=== PATIENT | male | born 1940 | race Caucasian/White ===

== ENCOUNTER 2017-01-29 06:07 | Day surgery (SDC) | payer MEDICARE ==
[2017-01-22 15:13] VITALS: BMI 31.1
[2017-01-29] MEDS ORDERED: Levofloxacin 500 mg/D5W 100 ml Premix Bag ONE (06:21)
[2017-01-29] MEDS ORDERED: Fentanyl 100 MCG/2 ML VIAL ONE (07:21)
[2017-01-29] MEDS ORDERED: Esmolol 100 MG/10 ML VIAL ONE (07:35)
[2017-01-29] MEDS ORDERED: Lidocaine 2% PF 10 ML AMP (For Epidural Use) ONE (07:35)
[2017-01-29] MEDS ORDERED: Glycopyrrolate 0.2 MG/ML 5 ML SYRINGE ONE (07:35)
[2017-01-29] MEDS ORDERED: Ondansetron HCl/PF 4 MG/2 ML Vial ONE (07:35)
[2017-01-29] MEDS ORDERED: PHENYLEPHRINE-NS 100 MCG/ML 10 ML SYRINGE ONE (07:35)
[2017-01-29] MEDS ORDERED: Propofol 200 MG/20 ML VIAL ONE (07:35)
[2017-01-29] MEDS ORDERED: Lidocaine 1% (PF) 30 ML VIAL ONE (09:28)
[2017-01-29] MEDS ORDERED: Bacitracin Zinc Ointment 30 gm TUBE ONE (09:28)
[2017-01-29] MEDS ORDERED: Bupivacaine 0.25% HCL 30 ML VIAL ONE (09:28)
[2017-01-29] MEDS ORDERED: SUGAMMADEX SODIUM 500 MG/5 ML VIAL ONE (10:44)
[2017-01-29] MEDS ORDERED: Promethazine HCl 25 MG/ML VIAL ONE (11:29)
--- NOTE | 2017-01-29 18:19 | OP ---
DATE OF PROCEDURE: 01/29/2017 PREOPERATIVE DIAGNOSES: Bladder tumor, BPH, urinary tract infections. POSTOPERATIVE DIAGNOSES: Bladder tumor, BPH, urinary tract infections. PROCEDURE PERFORMED: Transurethral resection of bladder tumors with random bladder biopsies, fulguration and mitomycin, then a GreenLight laser vaporization with a enucleation of the middle lobe using [id number] joules, then circumcision. GreenLight and mitomycin was also used as part of the procedure. SPECIMENS: Left bladder wall tumor as well as base of left bladder wall tumor and then random biopsies, trigone, posterior left and right and dome and then prostate chips. The foreskin was not sent. Minimal blood loss. No complications. ANESTHESIA: General with endotracheal tube as well as penile block using 10 mL of Marcaine. INDICATIONS: The patient is a 76-year-old male who had multiple prior resections of superficial low-grade bladder tumors and was found to have recurrence of these. He also has significant BPH and prior urinary tract infections as well as foreskin that could be contributing to these, so he was set up for transurethral resection of bladder tumor with mitomycin as well as GreenLight laser vaporization in the prostate and circumcision. DESCRIPTION OF THE PROCEDURE: The patient was brought in the room by anesthesia lying on table in supine position. After receiving general anesthetic via endotracheal tube with visual monitorization by Anesthesia, he was then positioned in lithotomy and prepped and draped in sterile fashion. A cystoscope was used initially to inspect the bladder, the tumors were small and only noted on the left bladder wall. Then, random bladder biopsies were taken of the trigone, posterior right and left wall and dome and then using the cold cup biopsy, a small superficial appearing bladder tumors were then also removed with a cold cup biopsy in part. Then, the cystoscope was removed and the resectoscope placed in and hemostasis of all the prior bladder biopsy sites was performed and then further resection of the base of the bladder tumors on the left side were resected and sent for specimen. Hemostasis was achieved in this area. Then, the resectoscope was removed and GreenLight laser vaporization would proceed. We did not have the standard 22.5 double bridge cystoscope, so we used a 26- Swedish resectoscope for the GreenLight laser. A power of 80 was used for the bladder neck and veru, and a power of 180 was used for the rest of the gland. The middle lobe was taken down and there was some extension of to the left and this portion was enucleated and chips that were small enough to be rinsed out. When the scope was removed, the good stream was noted. Scope was put back in with the bladder decompressed. Hemostasis was ensured at low grade power of 80. Then, the scope was removed the final time and a 20-Swedish 2-way was placed to gravity to drain the remaining bladder contents and then 40 mg of mitomycin and 50 mL was instilled and the catheter clamped or plugged and then the patient was turned to supine and transferred to an open OR suite. In supine position, a penile block was performed using 10 mL of Marcaine and then he was prepped and draped in sterile fashion. Using 2 circumferential incisions, one with the forekin reduced at the level of the perez, the other 5 mm proximal to the level of the perez with the foreskin retracted then these were sharply transected. Hemostasis was ensured with electrocautery and the two skin edges were reapproximated with 3-0 and 4-0 chromic in interrupted fashion. A vertical incision was slightly made at the frenulum and so a 4-0 chromic was used to reapproximate that in vertical fashion. Bacitracin, Xeroform, and sterile dressing were applied and then the patient was awakened fully and sent to the PACU. Before transferring him though, an hour had passed and the mitomycin was drained and disposed properly and new tubing connected to the De Guzman catheter, which was then secured. At this time, the patient was transferred to the PACU in stable condition. JEFF
== END 2017-01-29 13:45 | disposition home or self-care (01) ==
LOC: SDC 06:07
PROVIDERS: ATTEND Urology
PROC: 0VB08ZZ Excision of Prostate, Via Natural or Artificial Opening Endoscopic (ICD-10-PCS; principal; 2017-01-29)
PROC: 0VTTXZZ Resection of Prepuce, External Approach (ICD-10-PCS; 2017-01-29)
DX: C67.9 Malignant neoplasm of bladder, unspecified (principal); N40.1 Benign prostatic hyperplasia with lower urinary tract symptoms; Z87.440 Personal history of urinary (tract) infections; N32.89 Other specified disorders of bladder; E11.9 Type 2 diabetes mellitus without complications; I10 Essential (primary) hypertension; E03.9 Hypothyroidism, unspecified; E78.00 Pure hypercholesterolemia, unspecified; K21.9 Gastro-esophageal reflux disease without esophagitis; F32.9 Major depressive disorder, single episode, unspecified; H91.93 Unspecified hearing loss, bilateral; Z98.890 Other specified postprocedural states; Z96.21 Cochlear implant status; Z87.891 Personal history of nicotine dependence; Z79.82 Long term (current) use of aspirin; Z79.84 Long term (current) use of oral hypoglycemic drugs; Z79.899 Other long term (current) drug therapy
CPT/HCPCS: 52648; 54150; 88305; 96374; J9280; J1956; J2001; J2405; J2550; J2704; J3010; S0020

== ENCOUNTER 2017-10-15 22:08 | Inpatient (IN) | payer MEDICARE ==
[2017-10-16] MEDS ORDERED: Guaifenesin DM 100-10/5 ML UDCUP PO PRN (00:19)
[2017-10-16] MEDS ORDERED: Dextrose 50% Abboject 50 ML SYRINGE SLOW IVP PRN (00:19)
[2017-10-16] MEDS ORDERED: Calcium Carbonate 500 MG ChewTAB PO PRN (00:19)
[2017-10-16] MEDS ORDERED: Mag-Al 1200 mg/1200 mg/30 ML UDCUP PO PRN (00:19)
[2017-10-16] MEDS ORDERED: Dextrose 5% in Water 1,000 ML IV PRN (00:19)
[2017-10-16] MEDS ORDERED: Cefepime 1 GM in Sodium Chloride 0.9% 100 ML IVPB SCH (01:00)
[2017-10-16] MEDS: Sodium Chloride 0.9% 1,000 ML IV SCH ×2 (01:48→14:18)
[2017-10-16] MEDS: Acetaminophen 325 MG TAB PO PRN (02:13)
[2017-10-16 02:43] VITALS: BMI 29.9
[2017-10-16 04:20] LABS: #Eosinphils 0.5 thou/uL (0.0-0.7); #Lymphocytes 0.6 thou/uL (1.20-3.40); #Monocytes 0.4 thou/uL (0.11-0.59); #Neutrophils 5.9 thou/uL (1.40-6.50); %Basophils 0.1 % (0.0-1.0); %Eosinophils 6.4 % (0.0-10.0); %Lymphocytes 7.7 % (21.0-51.0); %Monocytes 5.4 % (0.0-10.0); %Neutrophils 80.4 % (42.0-75.0); Hemoglobin 11.5 g/dL (14.0-18.0); Mean Corpuscular HGB CONC 34.8 g/dL (32.0-36.0); Mean Corpuscular Hemoglobin 31.2 pg (27.0-31.0); Mean Corpuscular Volume 89.6 fl (80.0-94.0); Platelet Count 220 thou/uL (130-400); RBC Distribution Width 11.9 % (11.5-14.5); Red Blood Cell (RBC) Count 3.68 mill/uL (4.70-6.10); White Blood Cell (WBC) Count 7.3 thou/uL (4.8-10.8)
[2017-10-16 04:37] LABS: Lactic Acid 3.8 mmol/L (0.5-2.2)
[2017-10-16 04:43] LABS: Albumin 3.3 g/dL (3.4-4.8); Anion Gap 13 mmol/L (10-20); BUN (Urea Nitrogen) 24 mg/dL (8.4-25.7); BUN/Creatinine Ratio 14.72; Calc. Creatinine Clearance 52 mL/min (70-130); Calcium 8.9 mg/dL (7.8-10.44); Carbon Dioxide 20 mmol/L (23-31); Chloride 99 mmol/L (98-107); Estimated GFR-MDRD 41; Glucose 380 mg/dL (83-110); Phosphorus 2.2 mg/dL (2.3-4.7); Potassium 4.6 mmol/L (3.5-5.1); Sodium 127 mmol/L (136-145)
--- NOTE | 2017-10-16 05:18 | HP ---
REASON CHIEF COMPLAINT: Sepsis, urinary tract infection. HISTORY OF PRESENTING ILLNESS: Patient gives history of feeling weak all day. He was unable to walk. He has some dry cough, but no fever as such. He had come to Dr. Guevara's office at 8:45 a.m. yesterday for procedure. His blood pressure dropped down to 70/40 and was dizzy. He was stabilized in their office and was asked to go see his primary care physician, Dr. Hameed. He went to see Dr. Hameed yesterday afternoon. He had a CAT scan of the abdomen. Urinalysis and chest x-ray done at [facility]. His lactic acid was high and his glucose was high and patient was suspected to have sepsis and was transferred here. He has no complaints of urinary frequency or urgency per patient. No complaints of abdominal pain. No diarrhea. No complaints of chest pain, palpitation, PND, or orthopnea. PAST MEDICAL AND SURGICAL HISTORY: History of benign prostatic hypertrophy, history of bladder tumors which are being treated by Dr. Guevara his urologist, hypertension, dementia, COPD, peripheral neuropathy, diabetes mellitus type 2, hypothyroidism, depression, history of diverticulosis, GERD, arthroscopic rotator cuff repair on the right side, TURB - bladder tumor resection, hernia repair. CURRENT MEDICATIONS: Patient is on Prilosec 20 mg daily, aspirin is being held for procedure yesterday, CoQ10 of 400 mg daily, Norvasc 10 mg daily, Aricept 10 mg at bedtime, Anoro Ellipta inhaler daily, Celexa 20 mg daily, finasteride 5 mg daily, glimepiride 4 mg twice daily, Lantus 25 units subcutaneous daily, metformin 1 gram twice daily, Namenda 5 mg twice daily, ramipril 10 mg daily, levothyroxine 100 mcg daily, gabapentin 100 mg at bedtime, Zetia 10 mg p.o. q. daily. ALLERGIES: No known drug allergies. PERSONAL HISTORY: Quit smoking 16 years ago, prior to which, smoked 2 packs a day for nearly 30 years and drinks two shots of scotch every day in the evening , does not abuse drugs. Lives with his . FAMILY HISTORY: Both parents in their 80s. Father has had history of diabetes. CODE STATUS: FULL. Power of deputy attorney general is his . REVIEW OF SYSTEMS: The following complete review of systems was negative, unless otherwise mentioned in the HPI or below: Constitutional: Weight loss or gain, ability to conduct usual activities. Skin: Rash, itching. Eyes: Double vision, pain. ENT/Mouth: Nose bleeding, neck stiffness, pain, tenderness. Cardiovascular: Palpitations, dyspnea on exertion, orthopnea. Respiratory: Shortness of breath, wheezing, cough, hemoptysis, fever, or night sweats. Gastrointestinal: Poor appetite, abdominal pain, heartburn, nausea, vomiting, constipation, or diarrhea. Genitourinary: Urgency, frequency, dysuria, nocturia. Musculoskeletal: Pain, swelling. Neurologic/Psychiatric: Anxiety, depression. Allergy/Immunologic: Skin rash, bleeding tendency. PHYSICAL EXAMINATION: GENERAL: The patient is a 77-year-old male who is currently not in any acute distress. VITAL SIGNS: Blood pressure 173/94, pulse 86 per minute, respiratory rate 16 per minute, temperature 98.4 degrees Fahrenheit, saturating 97% on 3 liters nasal cannula. NECK: Supple, no elevated JVD. HEENT: Extraocular muscles intact. Pupils reacting to light. Oral cavity mucous membranes are moist. No exudates or congestion. CARDIOVASCULAR SYSTEM: S1, S2 heard. Regular rhythm. RESPIRATORY SYSTEM: Air entry 1+ bilateral. No rales or rhonchi. ABDOMEN: Soft, bowel sounds heard. No tenderness, rigidity, or guarding. EXTREMITIES: No peripheral edema or calf tenderness. VASCULAR SYSTEM: Peripheral pulses 1+ bilateral. No ischemic ulcerations or gangrene. CENTRAL NERVOUS SYSTEM: No gross focal deficits seen. Patient is alert, awake , and oriented well. PSYCHIATRIC SYSTEM: Patient's mood is euthymic. No hallucinations or delusions. LABORATORY DATA AND X-RAY FINDINGS: White count of 12, H&H 12 and 37, platelet count 255 with 92% neutrophils, 2% bands. PT, INR, PTT within normal limits. Potassium 5.6, serum bicarbonate 19, BUN 31, creatinine 2.1. Serum glucose 325. Lactic acid is 3.7. Liver enzymes within normal limits. BNP is 87. First set of cardiac enzymes are negative. Albumin is 3.8. UA shows small leukocyte esterase with 21-50 wbc's, rare few bacteria were seen. CT brain, no acute finding. Chest x-ray done shows mild cardiomegaly, no acute infiltrate. CLINICAL IMPRESSION AND PLAN: Patient will be admitted to telemetry for sepsis , possible urinary tract infection. We will also obtain orthostatic blood pressures. He will be placed on cefepime and Macrobid for now. Blood and urine cultures have been obtained in the ER. He will continue his home medications including Norvasc, aspirin, Celexa, Aricept, Zetia, Neurontin, glimepiride, Lantus, insulin, Synthroid, Namenda, Flomax, and CoQ10 as before. We will await cultures and we will transition him to oral antibiotics. We will continue to closely monitor him on telemetry. Please note I have seen and examined patient on 10/15/2017. JEFF
[2017-10-16] MEDS: Levothyroxine Sodium 100 MCG TAB PO SCH (06:03)
[2017-10-16] MEDS ORDERED: Non-Formulary Item 1 EACH (Insulin Glargine,Hum.Rec.Anlog [Lantus Solostar] 25 UNIT) SQ SCH (09:00)
[2017-10-16] MEDS: Enoxaparin Sodium 40 MG/0.4 ML SYRINGE SC SCH (09:51)
[2017-10-16] MEDS: Nitrofurantoin Monohyd/M-Cryst 100 MG CAP PO SCH ×2 (09:51→22:42)
[2017-10-16] MEDS: Amlodipine 10 MG TAB PO SCH (09:51)
[2017-10-16] MEDS: Ubidecarenone 50 MG CAP PO SCH (09:52)
[2017-10-16] MEDS: Famotidine 20 MG TAB PO SCH (09:52)
[2017-10-16] MEDS: Lactinex Tablet PO SCH (09:52)
[2017-10-16] MEDS: Tamsulosin HCl 0.4 MG CAP PO SCH ×2 (09:53→22:42)
[2017-10-16] MEDS: Multivitamin W/ Minerals 1 TAB PO SCH (09:53)
[2017-10-16] MEDS: Finasteride 5 MG TAB PO SCH (09:53)
[2017-10-16] MEDS: Ezetimibe 10 MG TAB PO SCH (09:53)
[2017-10-16] MEDS: Docusate 100 MG CAP PO SCH ×2 (09:53→22:42)
[2017-10-16] MEDS: Citalopram 20 MG TAB PO SCH (09:53)
[2017-10-16] MEDS: Glimepiride 4 MG TAB PO SCH ×2 (09:54→17:31)
[2017-10-16] MEDS: Insulin Glargine 25 UNITS in Pre-Filled Syringe 1 EACH SC SCH (11:48)
--- NOTE | 2017-10-16 12:14 | CON ---
DATE OF CONSULTATION: 10/16/2017 REASON FOR CONSULTATION: Consultation was requested for urosepsis. HISTORY OF PRESENT ILLNESS: The patient is well known to me and last week had received the second of three BCG doses as therapy for his bladder cancer in hopes to decrease the frequency of which it will return. He presented to our office on 10/15/2017 for his third dose and in just trying to get a urine sample from him, he was dizzy and unstable and seemed confused. His blood pressure was only 70 systolic, so he was laid down, rested and then ultimately his blood pressure improved significantly and he and his son were encouraged to call his primary care doctor and follow up regarding this. A urine was obtained at that time. He saw his primary care doctor who was concerned about him and sent him to the emergency room. The emergency room transferred him from [place] with concerns for urosepsis. Other than inflammation noted on the urinalysis I am not sure where they concluded that he had significant infection and that this resulted in urosepsis. He has had urinary tract infections, and I have treated him for these. Most recently after his second of two BCG treatments, which was on 10/08/2017, he had significant problems with severe spasm and pain in the 24 hours after so we had planned on giving him half a dose and increased his Myrbetriq and oxybutynin. Urinalysis did not show obvious infection by culture, but I did want to sterilize the urine before another BCG, so I asked him to start Macrobid around the time of the anticipated third BCG. But the most bacteria other than none and rare that have been seen in his urine was from the 2017 (1+) sample and then not since 03/2017. A urine culture in July did grow Staph epi. This was likely a contaminant, and the urine from March and grew presumptive Corynebacterium. But his culture from 10/11/2017 showed nothing despite 1+ bacteria noted on the micro, and his most recent urinalysis from my office actually showed no bacteria and then it was repeated from the ER later that day, showed rare--but this was with 4-6sq cells. Again, white blood cells will be standard and expected during his courses of BCG, so I am not concerned about significant infection in the urine. He does not need antibiotics for this unless his most recent culture ends up being positive, which is highly unlikely. PAST MEDICAL HISTORY: Diabetes since the , hearing loss, chronic sinusitis , reflux, depression, cholesterol, high blood pressure, hypothyroid, Parkinson' s possibly with dementia possibly, still working on a diagnosis, but certainly his memory has been an issue as I have followed him along recently. PAST SURGICAL HISTORY: Right arthroscopic rotator cuff in 2008, inguinal hernia repair in 1989, cochlear implant in 2014, bladder resections in 1971, 2013, 2016 and then with me in 2017. During the 2017 surgery, he also underwent GreenLight laser vaporization of the prostate for his BPH and circumcision. From a bladder emptying standpoint his residuals have always been significant and were 700 and 800 before his GreenLight and have been anywhere from 240 to 285 postop. FAMILY HISTORY: His dad at 80 with diabetes. Mom at 85. SOCIAL HISTORY: He has a 2 pack a day history for 37 years, but quit in 1986. He drinks two liquor beverages a day daily, although I think he has decreased this most recently. ALLERGIES: Seasonal only. MEDICATIONS: Metformin, amlodipine, Synthroid, insulin, ramipril, Ellipta, Flonase, Probiotic, multivitamin, Prilosec, Riri, vitamin D, gabapentin, Zetia, finasteride, aspirin, glimepiride, DHEA, Aricept, Namenda, Myrbetriq and oxybutynin. REVIEW OF SYSTEMS: No chest pain, no shortness of breath. No cough. No nausea , no vomiting, no diarrhea, no constipation. No trouble with urination, although he does say it palmer a little when he first starts. Yesterday he denied any concerns for infection with his urine, no blood. No fever or chills. He cannot remember whether he has been drinking enough and I am concerned that this may just be dehydration with failure to thrive. PHYSICAL EXAMINATION: GENERAL: He is comfortably resting in the bed. He has good color. He is oriented, but he definitely has memory trouble when asking specific questions. VITAL SIGNS: He has been afebrile with a T-max of 98.4, pulse has been in the 70s-80s, blood pressure has been stable in the 140s to 150s systolic, satting 94 % on room air. Urine output has been a liter overnight. CARDIOVASCULAR: Regular rate and rhythm. LUNGS: Clear to auscultation bilaterally. ABDOMEN: Soft, nondistended, nontender. : Testes were descended bilaterally without masses. Phallus is circumcised without lesions. No meatal stenosis. EXTREMITIES: He had no significant lower extremity edema. LABORATORY VALUES: White count is only 7.3. His H&H are stable. There is no significant neutrophils unless looked at the manual they went from 80 to 92%. Chemistry reveals a creatinine of 1.63 which is actually relatively good for him with a BUN of 24 and 31 previously, so improving. BNP is only 87.4. I have already detailed all the urinalysis and cultures. His most recent renal ultrasound was from 01/2017 and was unremarkable. Last cysto and cytology: 08/21 --both were negative for cancer. ASSESSMENT AND PLAN: We have a 77-year-old male who was admitted with concerns for urosepsis. However, I am not convinced that he even has a significant urine infection much less sepsis and favor dehydration with resulting low blood pressure in the setting of increasing memory troubles and possibly failure to thrive. Certainly I will await the urine culture, but I suspect this will be negative and therefore no further antibiotics would be indicated from my standpoint. JEFF
--- NOTE | 2017-10-16 12:40 | PDOC.PN ---
- Subjective Encounter Start Date: 10/16/17 Encounter Start Time: 12:42 Patient seen and examined. Admitted for suspected sepsis due to UTI. Patient is a lot better this morning and has no complaints. No acute events overnight. - Objective Resuscitation Status: Resuscitation Status FULL:Full Resuscitation MAR Reviewed: Yes Vital Signs & Weight: Vital Signs (12 hours) Temp Pulse Pulse Pulse Resp BP BP 10/16/17 11:47 98.5 F 94 18 10/16/17 11:22 77 16 10/16/17 09:51 75 10/16/17 08:04 98.4 F 75 18 10/16/17 07:42 76 74 152/73 H 155/74 H 10/16/17 03:18 98.2 F 83 20 10/16/17 03:14 82 16 10/16/17 02:04 98.2 F 89 20 10/16/17 01:40 98.2 F 89 20 BP Pulse Ox Pulse Ox 10/16/17 11:47 140/71 95 10/16/17 11:22 94 L 10/16/17 09:51 10/16/17 08:04 158/74 H 94 L 10/16/17 07:42 94 L 10/16/17 03:18 146/70 H 94 L 10/16/17 03:14 95 10/16/17 02:04 96 10/16/17 01:40 174/82 H 96 Weight Weight 221 lb 3.2 oz I&O: 10/15/17 10/16/17 10/17/17 06:59 06:59 06:59 Intake Total 1080 Output Total 1230 Balance -150 Result Diagrams: 10/16/17 03:04 10/16/17 03:04 Additional Labs: Accuchecks 10/16/17 10/16/17 11:11 05:39 POC Glucose 265 H 299 H Phys Exam - Physical Examination Constitutional: NAD HEENT: moist MMs, sclera anicteric Neck: supple, full ROM Respiratory: no wheezing, no rales, no rhonchi, clear to auscultation bilateral Cardiovascular: RRR, no significant murmur, no rub Gastrointestinal: soft, non-tender, no distention, positive bowel sounds Musculoskeletal: no edema, pulses present Neurological: non-focal, moves all 4 limbs Skin: no rash, normal turgor Dx/Plan (1) Cognitive changes Code(s): R41.89 - OTH SYMPTOMS AND SIGNS W COGNITIVE FUNCTIONS AND AWARENESS Status: Chronic Comment: Has suspected lewy Body dementia. (2) CKD (chronic kidney disease) Code(s): N18.9 - CHRONIC KIDNEY DISEASE, UNSPECIFIED Status: Chronic Qualifiers: Chronic kidney disease stage: stage 3 (moderate) Qualified Code(s): N18.3 - Chronic kidney disease, stage 3 (moderate) (3) Hypothyroidism Code(s): E03.9 - HYPOTHYROIDISM, UNSPECIFIED Status: Chronic Qualifiers: Hypothyroidism type: unspecified Qualified Code(s): E03.9 - Hypothyroidism , unspecified (4) Hyperglycemia due to type 2 diabetes mellitus Code(s): E11.65 - TYPE 2 DIABETES MELLITUS WITH HYPERGLYCEMIA Status: Acute Qualifiers: Diabetes mellitus snf insulin use: with snf use Qualified Code( s): E11.65 - Type 2 diabetes mellitus with hyperglycemia; Z79.4 - tangled yarn spool straightener ( current) use of insulin; Z79.4 - retirement (current) use of insulin; Z79.4 - retirement (current) use of insulin; Z79.4 - retirement (current) use of insulin (5) UTI (lower urinary tract infection) Code(s): N39.0 - URINARY TRACT INFECTION, SITE NOT SPECIFIED Status: Acute (6) BPH (benign prostatic hyperplasia) Code(s): N40.0 - BENIGN PROSTATIC HYPERPLASIA WITHOUT LOWER URINRY TRACT SYMP Status: Chronic Qualifiers: Lower urinary tract symptom presence: symptoms present Lower urinary tract symptom detail: urinary hesitancy Qualified Code(s): N40.1 - Benign prostatic hyperplasia with lower urinary tract symptoms; R39.11 - Hesitancy of micturition ; R39.11 - Hesitancy of micturition (7) Hyponatremia Code(s): E87.1 - HYPO-OSMOLALITY AND HYPONATREMIA Status: Chronic (8) Hypertension Code(s): I10 - ESSENTIAL (PRIMARY) HYPERTENSION Status: Chronic Qualifiers: Hypertension type: essential hypertension Qualified Code(s): I10 - Essential (primary) hypertension (9) DM2 (diabetes mellitus, type 2) Status: Acute Qualifiers: Diabetes mellitus campaign developer insulin use: with campaign developer use Diabetes mellitus complication status: with neurologic complications Diabetes mellitus complication detail: with polyneuropathy Qualified Code(s): E11.42 - Type 2 diabetes mellitus with diabetic polyneuropathy; Z79.4 - retirement (current) use of insulin; Z79.4 - tangled yarn spool straightener (current) use of insulin; Z79.4 - retirement ( current) use of insulin; Z79.4 - retirement (current) use of insulin (10) Physical deconditioning Code(s): R53.81 - OTHER MALAISE Status: Acute - Plan cont current plan of care, plan discussed w/ family, continue antibiotics, PT/OT , out of bed/ambulate, DVT proph w/lovenox Continue broad spectrum antibiotics. f/u cultures. Urology evaluated, no new recommendations. Patient likely dehydrated, leading to hypotension and likely not 2/2 sepsis. PT/OT consulted for physical deconditioning. Review of Systems - Medications/Allergies Allergies/Adverse Reactions: Allergies Allergy/AdvReac Type Severity Reaction Status Date / Time No Known Allergies Allergy Verified 10/16/17 03:14 Medications: Current Medications Acetaminophen (Tylenol) 650 mg PO Q4H PRN PRN Reason: Headache/Fever or Pain Last Admin: 10/16/17 02:13 Dose: 650 mg Acidophilus (Floranex) 1 tab PO DAILY [facility] Last Admin: 10/16/17 09:52 Dose: 1 tab Al Hydroxide/Mg Hydroxide (Maalox) 30 ml PO Q6H PRN PRN Reason: Heartburn or Indigestion Albuterol/Ipratropium (Duoneb) 3 ml NEB [id number] [facility] Last Admin: 10/16/17 11:22 Dose: 3 ml Amlodipine Besylate (Norvasc) 10 mg PO DAILY [facility] Last Admin: 10/16/17 09:51 Dose: 10 mg Aspirin (Aspirin Chewable) 81 mg PO DAILY [facility] Last Admin: 10/16/17 09:53 Dose: 81 mg Calcium Carbonate (Tums) 1,000 mg PO Q4H PRN PRN Reason: Heartburn or Indigestion Citalopram Hydrobromide (Celexa) 20 mg PO DAILY [facility] Last Admin: 10/16/17 09:53 Dose: 20 mg Coenzyme Q10 (Coenzyme Q10) 400 mg PO DAILY [facility] Last Admin: 10/16/17 09:52 Dose: 400 mg Dextrose/Water (Dextrose 50%) 25 gm SLOW IVP PRN PRN PRN Reason: Hypoglycemia Docusate Sodium (Colace) 100 mg PO BID [facility] Last Admin: 10/16/17 09:53 Dose: 100 mg Donepezil HCl (Aricept) 10 mg PO [facility] Ezetimibe (Zetia) 10 mg PO DAILY [facility] Last Admin: 10/16/17 09:53 Dose: 10 mg Enoxaparin Sodium (Lovenox) 40 mg SC 0900 [facility] Last Admin: 10/16/17 09:51 Dose: 40 mg Famotidine (Pepcid) 20 mg PO DAILY [facility] Last Admin: 10/16/17 09:52 Dose: 20 mg Finasteride (Proscar) 5 mg PO DAILY [facility] Last Admin: 10/16/17 09:53 Dose: 5 mg Gabapentin (Neurontin) 100 mg PO [facility] Glimepiride (Amaryl) 4 mg PO BID-[facility] Last Admin: 10/16/17 09:54 Dose: 4 mg Glucagon (Glucagon) 1 mg IM PRN PRN PRN Reason: Hypoglycemia Guaifenesin/Dextromethorphan (Robitussin Dm) 15 ml PO Q4H PRN PRN Reason: Cough Dextrose/Water (D5w) 1,000 mls @ 0 mls/hr IV .Q0M PRN; As Directed PRN Reason: Hypoglycemia Sodium Chloride (Normal Saline 0.9%) 1,000 mls @ 80 mls/hr IV .[id number] [facility] Last Admin: 10/16/17 01:48 Dose: 1,000 mls Insulin Glargine 25 units/ (Miscellaneous Medication) 0.25 mls @ 0 mls/hr SC QAM [facility] Last Admin: 10/16/17 11:48 Dose: 0.25 mls Cefepime HCl 1 gm/ Sodium (Chloride) 100 mls @ 200 mls/hr IVPB 0200,1400 [facility] Insulin Human Lispro (Humalog) 0 units SC .MODERATE SLIDING SC PRN PRN Reason: Moderate Correctional Scale Insulin Human Lispro (Humalog) 0 units SC .BEDTIME SLIDING SC PRN PRN Reason: Bedtime Correctional Scale Iron/Minerals/Multivitamins (Theragran M) 1 tab PO DAILY [facility] Last Admin: 10/16/17 09:53 Dose: 1 tab Levothyroxine Sodium (Synthroid) 100 mcg PO 0600 [facility] Last Admin: 10/16/17 06:03 Dose: 100 mcg Memantine (Namenda) 5 mg PO BID [facility] Last Admin: 10/16/17 09:53 Dose: 5 mg Nitrofurantoin Macrocrystals (Macrobid) 100 mg PO BID [facility] Last Admin: 10/16/17 09:51 Dose: 100 mg Tamsulosin HCl (Flomax) 0.4 mg PO BID [facility] Last Admin: 10/16/17 09:53 Dose: 0.4 mg
[2017-10-16] MEDS: Cefepime 1 GM in Sodium Chloride 0.9% 100 ML IVPB SCH (14:28)
[2017-10-16] MEDS ORDERED: Non-Formulary Item 1 EACH (Metformin Hcl [Glucophage] 1,000 MG) PO SCH (17:00)
[2017-10-16] MEDS: metFORMIN 500 MG TAB PO SCH (17:31)
[2017-10-16] MEDS: HumaLOG 300 UNITS/3 ML VIAL SC PRN ×2 (17:31→22:44)
[2017-10-16] MEDS: Gabapentin 100 MG CAP PO SCH (22:42)
[2017-10-16] MEDS: Donepezil HCl 10 MG TAB PO SCH (22:42)
[2017-10-17] MEDS: Cefepime 1 GM in Sodium Chloride 0.9% 100 ML IVPB SCH (02:50)
[2017-10-17] MEDS: Sodium Chloride 0.9% 1,000 ML IV SCH ×2 (04:46→06:44)
[2017-10-17 05:14] LABS: #Eosinphils 0.5 thou/uL (0.0-0.7); #Lymphocytes 1.2 thou/uL (1.20-3.40); #Monocytes 0.5 thou/uL (0.11-0.59); #Neutrophils 4.7 thou/uL (1.40-6.50); %Basophils 0.1 % (0.0-1.0); %Eosinophils 6.8 % (0.0-10.0); %Lymphocytes 17.8 % (21.0-51.0); %Monocytes 7.1 % (0.0-10.0); %Neutrophils 68.3 % (42.0-75.0); Hemoglobin 11.3 g/dL (14.0-18.0); Mean Corpuscular HGB CONC 34.7 g/dL (32.0-36.0); Mean Corpuscular Hemoglobin 30.9 pg (27.0-31.0); Mean Corpuscular Volume 88.9 fl (80.0-94.0); Mean Platelet Volume 6.9 fL (7.4-10.4); Platelet Count 217 thou/uL (130-400); Red Blood Cell (RBC) Count 3.66 mill/uL (4.70-6.10); White Blood Cell (WBC) Count 6.8 thou/uL (4.8-10.8)
[2017-10-17 05:24] LABS: Anion Gap 12 mmol/L (10-20); BUN (Urea Nitrogen) 17 mg/dL (8.4-25.7); Calc. Creatinine Clearance 61 mL/min (70-130); Calcium 8.9 mg/dL (7.8-10.44); Carbon Dioxide 21 mmol/L (23-31); Chloride 104 mmol/L (98-107); Estimated GFR-MDRD 49; Glucose 152 mg/dL (83-110); Sodium 133 mmol/L (136-145)
[2017-10-17] MEDS: Levothyroxine Sodium 100 MCG TAB PO SCH (06:37)
[2017-10-17] MEDS: Acetaminophen 325 MG TAB PO PRN (06:43)
[2017-10-17] MEDS ORDERED: Non-Formulary Item 1 EACH (Omeprazole [Prilosec] 20 MG) PO SCH (09:00)
[2017-10-17] MEDS: Ezetimibe 10 MG TAB PO SCH (09:44)
[2017-10-17] MEDS: metFORMIN 500 MG TAB PO SCH ×2 (09:45→17:52)
[2017-10-17] MEDS: Citalopram 20 MG TAB PO SCH (09:46)
[2017-10-17] MEDS: Docusate 100 MG CAP PO SCH ×2 (09:46→20:44)
[2017-10-17] MEDS: Finasteride 5 MG TAB PO SCH (09:47)
[2017-10-17] MEDS: Famotidine 20 MG TAB PO SCH (09:47)
[2017-10-17] MEDS: Lactinex Tablet PO SCH (09:47)
[2017-10-17] MEDS: Amlodipine 10 MG TAB PO SCH (09:47)
[2017-10-17] MEDS: Tamsulosin HCl 0.4 MG CAP PO SCH ×2 (09:47→20:44)
[2017-10-17] MEDS: Nitrofurantoin Monohyd/M-Cryst 100 MG CAP PO SCH ×2 (09:47→20:44)
[2017-10-17] MEDS: Multivitamin W/ Minerals 1 TAB PO SCH (09:47)
[2017-10-17] MEDS: Ubidecarenone 50 MG CAP PO SCH (09:49)
[2017-10-17] MEDS: Glimepiride 4 MG TAB PO SCH ×2 (09:49→17:52)
[2017-10-17] MEDS: Insulin Glargine 25 UNITS in Pre-Filled Syringe 1 EACH SC SCH (09:51)
[2017-10-17] MEDS: Enoxaparin Sodium 40 MG/0.4 ML SYRINGE SC SCH (09:52)
[2017-10-17] MEDS: HumaLOG 300 UNITS/3 ML VIAL SC PRN ×2 (12:35→20:48)
--- NOTE | 2017-10-17 12:48 | PDOC.PN ---
- Subjective Encounter Start Date: 10/17/17 Encounter Start Time: 12:53 Patient seen and examined. Admitted for suspected sepsis due to UTI.Has no complaints. Sepsis ruled out. No acute events overnight. - Objective Resuscitation Status: Resuscitation Status FULL:Full Resuscitation MAR Reviewed: Yes Vital Signs & Weight: Vital Signs (12 hours) Temp Pulse Resp BP BP BP BP 10/17/17 11:30 98.5 F 72 16 116/68 110/68 10/17/17 10:00 130/84 10/17/17 09:47 96 126/78 10/17/17 07:18 99.3 F 96 16 10/17/17 07:12 99.3 F 96 16 138/87 10/17/17 06:28 93 16 10/17/17 05:15 98.2 F 94 20 142/82 H BP Pulse Ox 10/17/17 11:30 153/83 H 96 10/17/17 10:00 10/17/17 09:47 10/17/17 07:18 92 L 10/17/17 07:12 92 L 10/17/17 06:28 94 L 10/17/17 05:15 95 Weight Weight 221 lb 3.2 oz I&O: 10/16/17 10/17/17 10/18/17 06:59 06:59 06:59 Intake Total 1080 1954 Output Total 1230 1360 Balance -150 594 Result Diagrams: 10/17/17 04:23 10/17/17 04:24 Additional Labs: Accuchecks 10/17/17 10/17/17 10/16/17 11:39 05:15 19:57 POC Glucose 308 H 175 H 321 H 10/16/17 16:28 POC Glucose 343 H Phys Exam - Physical Examination Constitutional: NAD HEENT: moist MMs, sclera anicteric, oral pharynx no lesions Neck: no JVD, supple Respiratory: no wheezing, no rales, no rhonchi, clear to auscultation bilateral Cardiovascular: RRR, no significant murmur, no rub Gastrointestinal: soft, non-tender, no distention, positive bowel sounds Musculoskeletal: no edema, pulses present Neurological: non-focal, moves all 4 limbs Skin: no rash, normal turgor Dx/Plan (1) Cognitive changes Code(s): R41.89 - OTH SYMPTOMS AND SIGNS W COGNITIVE FUNCTIONS AND AWARENESS Status: Chronic Comment: Stable. Alert and well oriented. Has suspected lewy Body dementia. (2) CKD (chronic kidney disease) Code(s): N18.9 - CHRONIC KIDNEY DISEASE, UNSPECIFIED Status: Chronic Qualifiers: Chronic kidney disease stage: stage 3 (moderate) Qualified Code(s): N18.3 - Chronic kidney disease, stage 3 (moderate) (3) Hypothyroidism Code(s): E03.9 - HYPOTHYROIDISM, UNSPECIFIED Status: Chronic Qualifiers: Hypothyroidism type: unspecified Qualified Code(s): E03.9 - Hypothyroidism , unspecified (4) Hyperglycemia due to type 2 diabetes mellitus Code(s): E11.65 - TYPE 2 DIABETES MELLITUS WITH HYPERGLYCEMIA Status: Acute Qualifiers: Diabetes mellitus care home insulin use: with care home use Qualified Code( s): E11.65 - Type 2 diabetes mellitus with hyperglycemia; Z79.4 - snf ( current) use of insulin; Z79.4 - exterminator (current) use of insulin; Z79.4 - snf (current) use of insulin; Z79.4 - exterminator (current) use of insulin Comment: Improving. (5) UTI (lower urinary tract infection) Code(s): N39.0 - URINARY TRACT INFECTION, SITE NOT SPECIFIED Status: Acute Comment: Sepsis ruled out. patient continued on Macrobid. (6) BPH (benign prostatic hyperplasia) Code(s): N40.0 - BENIGN PROSTATIC HYPERPLASIA WITHOUT LOWER URINRY TRACT SYMP Status: Chronic Qualifiers: Lower urinary tract symptom presence: symptoms present Lower urinary tract symptom detail: urinary hesitancy Qualified Code(s): N40.1 - Benign prostatic hyperplasia with lower urinary tract symptoms; R39.11 - Hesitancy of micturition ; R39.11 - Hesitancy of micturition (7) Hyponatremia Code(s): E87.1 - HYPO-OSMOLALITY AND HYPONATREMIA Status: Chronic (8) Hypertension Code(s): I10 - ESSENTIAL (PRIMARY) HYPERTENSION Status: Chronic Qualifiers: Hypertension type: essential hypertension Qualified Code(s): I10 - Essential (primary) hypertension (9) DM2 (diabetes mellitus, type 2) Status: Acute Qualifiers: Diabetes mellitus oil heaterman insulin use: with oil heaterman use Diabetes mellitus complication status: with neurologic complications Diabetes mellitus complication detail: with polyneuropathy Qualified Code(s): E11.42 - Type 2 diabetes mellitus with diabetic polyneuropathy; Z79.4 - snf (current) use of insulin; Z79.4 - snf (current) use of insulin; Z79.4 - snf ( current) use of insulin; Z79.4 - snf (current) use of insulin (10) Physical deconditioning Code(s): R53.81 - OTHER MALAISE Status: Acute - Plan Outpatient PT/OT Continue antibiotics. Likely discharge tomorrow. Review of Systems - Medications/Allergies Allergies/Adverse Reactions: Allergies Allergy/AdvReac Type Severity Reaction Status Date / Time No Known Allergies Allergy Verified 10/16/17 03:14 Medications: Current Medications Acetaminophen (Tylenol) 650 mg PO Q4H PRN PRN Reason: Headache/Fever or Pain Last Admin: 10/17/17 06:43 Dose: 650 mg Acidophilus (Floranex) 1 tab PO DAILY [facility] Last Admin: 10/17/17 09:47 Dose: 1 tab Al Hydroxide/Mg Hydroxide (Maalox) 30 ml PO Q6H PRN PRN Reason: Heartburn or Indigestion Albuterol/Ipratropium (Duoneb) 3 ml NEB Q4H PRN PRN Reason: Dyspnea/Wheezing/SOB Amlodipine Besylate (Norvasc) 10 mg PO DAILY [facility] Last Admin: 10/17/17 09:47 Dose: 10 mg Aspirin (Aspirin Chewable) 81 mg PO DAILY [facility] Last Admin: 10/17/17 09:46 Dose: 81 mg Calcium Carbonate (Tums) 1,000 mg PO Q4H PRN PRN Reason: Heartburn or Indigestion Citalopram Hydrobromide (Celexa) 20 mg PO DAILY [facility] Last Admin: 10/17/17 09:46 Dose: 20 mg Coenzyme Q10 (Coenzyme Q10) 400 mg PO DAILY [facility] Last Admin: 10/17/17 09:49 Dose: 400 mg Dextrose/Water (Dextrose 50%) 25 gm SLOW IVP PRN PRN PRN Reason: Hypoglycemia Docusate Sodium (Colace) 100 mg PO BID [facility] Last Admin: 10/17/17 09:46 Dose: 100 mg Donepezil HCl (Aricept) 10 mg PO HS [facility] Last Admin: 10/16/17 22:42 Dose: 10 mg Ezetimibe (Zetia) 10 mg PO DAILY [facility] Last Admin: 10/17/17 09:44 Dose: 10 mg Enoxaparin Sodium (Lovenox) 40 mg SC 0900 [facility] Last Admin: 10/17/17 09:52 Dose: 40 mg Famotidine (Pepcid) 20 mg PO DAILY [facility] Last Admin: 10/17/17 09:47 Dose: 20 mg Finasteride (Proscar) 5 mg PO DAILY [facility] Last Admin: 10/17/17 09:47 Dose: 5 mg Gabapentin (Neurontin) 100 mg PO HS [facility] Last Admin: 10/16/17 22:42 Dose: 100 mg Glimepiride (Amaryl) 4 mg PO BID[facility] Last Admin: 10/17/17 09:49 Dose: 4 mg Glucagon (Glucagon) 1 mg IM PRN PRN PRN Reason: Hypoglycemia Guaifenesin/Dextromethorphan (Robitussin Dm) 15 ml PO Q4H PRN PRN Reason: Cough Dextrose/Water (D5w) 1,000 mls @ 0 mls/hr IV .Q0M PRN; As Directed PRN Reason: Hypoglycemia Sodium Chloride (Normal Saline 0.9%) 1,000 mls @ 80 mls/hr IV .[id number] [facility] Last Admin: 10/17/17 06:44 Dose: 1,000 mls Insulin Glargine 25 units/ (Miscellaneous Medication) 0.25 mls @ 0 mls/hr SC QAM [facility] Last Admin: 10/17/17 09:51 Dose: 0.25 mls Cefepime HCl 1 gm/ Sodium (Chloride) 100 mls @ 200 mls/hr IVPB 0200,1400 [facility] Last Admin: 10/17/17 02:50 Dose: 100 mls Insulin Human Lispro (Humalog) 0 units SC .MODERATE SLIDING SC PRN PRN Reason: Moderate Correctional Scale Last Admin: 10/16/17 17:31 Dose: 8 unit Insulin Human Lispro (Humalog) 0 units SC .BEDTIME SLIDING SC PRN PRN Reason: Bedtime Correctional Scale Last Admin: 10/16/17 22:44 Dose: 4 unit Iron/Minerals/Multivitamins (Theragran M) 1 tab PO DAILY [facility] Last Admin: 10/17/17 09:47 Dose: 1 tab Levothyroxine Sodium (Synthroid) 100 mcg PO 0600 [facility] Last Admin: 10/17/17 06:37 Dose: 100 mcg Memantine (Namenda) 5 mg PO BID [facility] Last Admin: 10/17/17 09:47 Dose: 5 mg Metformin HCl (Glucophage) 1,000 mg PO BID-WM [facility] Last Admin: 10/17/17 09:45 Dose: 1,000 mg Nitrofurantoin Macrocrystals (Macrobid) 100 mg PO BID [facility] Last Admin: 10/17/17 09:47 Dose: 100 mg Pantoprazole Sodium (Protonix) 40 mg PO DAILY [facility] Last Admin: 10/17/17 09:45 Dose: 40 mg Sodium Chloride (Flush - Normal Saline) 10 ml IVF Q12HR [facility] Last Admin: 10/17/17 09:50 Dose: Not Given Sodium Chloride (Flush - Normal Saline) 10 ml IVF PRN PRN PRN Reason: Saline Flush Tamsulosin HCl (Flomax) 0.4 mg PO BID [facility] Last Admin: 10/17/17 09:47 Dose: 0.4 mg
[2017-10-17] MEDS: Donepezil HCl 10 MG TAB PO SCH (20:44)
[2017-10-17] MEDS: Gabapentin 100 MG CAP PO SCH (20:45)
[2017-10-18 05:17] LABS: #Eosinphils 0.6 thou/uL (0.0-0.7); #Lymphocytes 0.9 thou/uL (1.20-3.40); #Monocytes 0.5 thou/uL (0.11-0.59); #Neutrophils 5.2 thou/uL (1.40-6.50); %Basophils 0.3 % (0.0-1.0); %Eosinophils 8.3 % (0.0-10.0); %Lymphocytes 11.9 % (21.0-51.0); %Monocytes 6.4 % (0.0-10.0); %Neutrophils 73.1 % (42.0-75.0); Hemoglobin 11.9 g/dL (14.0-18.0); Mean Corpuscular HGB CONC 34.3 g/dL (32.0-36.0); Mean Corpuscular Hemoglobin 30.7 pg (27.0-31.0); Mean Corpuscular Volume 89.4 fl (80.0-94.0); Mean Platelet Volume 6.8 fL (7.4-10.4); Platelet Count 222 thou/uL (130-400); RBC Distribution Width 11.9 % (11.5-14.5); Red Blood Cell (RBC) Count 3.89 mill/uL (4.70-6.10); White Blood Cell (WBC) Count 7.2 thou/uL (4.8-10.8)
[2017-10-18 05:27] LABS: Anion Gap 12 mmol/L (10-20); BUN (Urea Nitrogen) 17 mg/dL (8.4-25.7); Calc. Creatinine Clearance 69 mL/min (70-130); Calcium 9.2 mg/dL (7.8-10.44); Carbon Dioxide 21 mmol/L (23-31); Chloride 104 mmol/L (98-107); Estimated GFR-MDRD 57; Glucose 79 mg/dL (83-110); Sodium 133 mmol/L (136-145)
[2017-10-18] MEDS: Levothyroxine Sodium 100 MCG TAB PO SCH (05:36)
[2017-10-18] MEDS: Lactinex Tablet PO SCH (08:17)
[2017-10-18] MEDS: Tamsulosin HCl 0.4 MG CAP PO SCH (08:17)
[2017-10-18] MEDS: Docusate 100 MG CAP PO SCH (08:17)
[2017-10-18] MEDS: Insulin Glargine 25 UNITS in Pre-Filled Syringe 1 EACH SC SCH (08:17)
[2017-10-18] MEDS: Nitrofurantoin Monohyd/M-Cryst 100 MG CAP PO SCH (08:17)
[2017-10-18] MEDS: Enoxaparin Sodium 40 MG/0.4 ML SYRINGE SC SCH (08:18)
[2017-10-18] MEDS: Ezetimibe 10 MG TAB PO SCH (08:18)
[2017-10-18] MEDS: metFORMIN 500 MG TAB PO SCH (08:18)
[2017-10-18] MEDS: Finasteride 5 MG TAB PO SCH (08:18)
[2017-10-18] MEDS: Amlodipine 10 MG TAB PO SCH (08:18)
[2017-10-18] MEDS: Glimepiride 4 MG TAB PO SCH (08:18)
[2017-10-18] MEDS: Multivitamin W/ Minerals 1 TAB PO SCH (08:18)
[2017-10-18] MEDS: Citalopram 20 MG TAB PO SCH (08:18)
[2017-10-18] MEDS: Famotidine 20 MG TAB PO SCH (08:18)
[2017-10-18] MEDS: Ubidecarenone 50 MG CAP PO SCH (08:19)
[2017-10-18 09:00] VITALS: TEMP 98.6
[2017-10-18 10:06] VITALS: BP 98/64
--- NOTE | 2017-10-18 17:02 | DIS ---
DATE OF ADMISSION: 10/15/2017 DATE OF DISCHARGE: 10/18/2017 DISCHARGE DIAGNOSES: Urinary tract infection, cognitive changes secondary to Lewy body dementia, chr onic kidney disease, hypothyroidism, type 2 diabetes mellitus with hyperglycemia, BPH, hyponatremia, hypertension, physical deconditioning. HISTORY OF PRESENT ILLNESS/HOSPITAL COURSE: Mr. Scottie Roman is a 77-year-old male with the above medical history, who was brought to the emergency room due to generalized fatigue and inability to am bulate. He reported some cough, but no fever. He came to Dr. Guevara's office the day before for his procedure, but due to hypotension and dizziness, he was asked to see his primary care physician, Dr. Hameed. He had a urinalysis and chest x-ray done at [place], which was unremarkable. He also had a lactic acid done which was high as well as hyperglycemia. Sepsis was suspected, and the patien t was then transferred to [facility] for further care. He had no urinary frequency, but r eported some dysuria. There was no abdominal pain, diarrhea, chest pain, palpitations, PND, or ortho pnea. His physical examination was largely unremarkable. His labs showed slightly elevated white bl ood cell count of 12, creatinine of 2.1, glucose was 325 and lactic acid 3.7. He was admitted to [facility] for sepsis likely urinary tract infection. Also due to history of bladder surgery, Urodoris vasquez was consulted, but no further recommendations were given. He is on physical therapy while he was inhouse and they recommended home with some home physical therapy and said he is close to his [facility] as well. For his urinary tract infection, he was initially started on broad-spectrum antibiotic w ith ceftriaxone and he was transitioned to oral Macrobid. The patient's other medical conditions deborah ated while in hospital and he was placed on sliding scale insulin as well as his home oral hypoglycem ics and long-acting insulin. Blood sugar was fairly well controlled before discharge. On the day of discharge, he had no complaints. He reported doing well. His was also in the room with him wi th his son. Discharge planning was discussed with them and she reports that he usually does not like to move around at home and always just likes to sit in his reclining chair. The patient was encoura ged to ambulate more and take his medications as required. She also thoughts about reducing the numb er of medication he is currently getting and decision was made to follow up with her primary care kellie watkins within the next week to wean him off some of his home medications. DISCHARGE MEDICATIONS: Celexa 20 mg daily, memantine 5 mg twice a day, nitrofurantoin 100 mg twice a day, omeprazole 20 mg daily, multivitamins 1 tablet daily, cholecalciferol 2000 mg daily, aspirin 81 mg daily, metformin 1000 mg twice a day, levothyroxine 100 mcg daily, glimepiride 4 mg twice a day, finasteride 5 mg daily, CoQ10 40 mg daily, Valisone 0.1% cream apply topically daily, Probiotic 1 ligia ly, insulin Glargine 25 units subcutaneously every morning, azelastine 2 sprays in each naris daily, Metanx 2 capsules daily, Anoro Ellipta 1 puff inhaled daily, ramipril 10 mg daily, amlodipine 10 mg d aily, venlafaxine 180 mg daily, donepezil 10 mg at bedtime, tamsulosin 0.4 mg twice a day, gabapentin 300 mg at bedtime, ezetimibe 10 mg daily, prasterone 50 mg daily, docosahexaenoic acid 450 mg daily. PHYSICAL EXAMINATION: He was examined on the day of discharge. VITAL SIGNS: Blood pressure 133/78, pulse rate 88, respiratory rate 18, oxygen saturation 96% on foreign m air, temperature 98.6 degrees Fahrenheit. GENERAL: No acute distress. He is sitting comfortably in bed. HEENT: Normocephalic, atraumatic. Not pale, anicteric. Moist mucous membranes. NECK: Supple, full range of movements. RESPIRATORY: Vesicular breath sounds bilaterally. No wheezes, rales or rhonchi. CARDIOVASCULAR: S1 and S2 only. Regular rate and rhythm. No murmurs, rubs or gallops. MUSCULOSKELETAL: No edema. ABDOMEN: Soft, nontender, nondistended. Bowel sounds normoactive. NEUROLOGIC: Alert and well oriented to time, place and person. No focal deficits. PSYCHIATRIC: Normal mood and affect. SKIN: Warm, dry, and well perfused. No rashes or lesion. LABORATORY DATA: WBC 7.2, hemoglobin 11.9, platelet count 222. Sodium 133, potassium 4, chloride 10 4, carbon dioxide 21, anion gap 12, BUN 17, creatinine 1.23. Of note, he had an acute kidney injury as well on admission and improved with hydration. IMAGING: None. PROCEDURES: None. CONSULTS: Urology. CONDITION AT DISCHARGE: Stable and improved. CARE GOALS: The patient is to follow up with his primary care physician within 1 week for repeat lab s and medication reconciliation. ACTIVITY: Resume as tolerated and as directed by therapy services. DIET: Heart healthy, diabetic. Discharge time 65 minutes including chart review and documentation.
--- NOTE | 2017-10-23 13:24 | EKG ---
Test Reason : Blood Pressure : / mmHG Vent. Rate : 088 BPM Atrial Rate : 088 BPM P-R Int : 236 ms QRS Dur : 096 ms QT Int : 374 ms P-R-T Axes : 054 002 040 degrees QTc Int : 452 ms Sinus rhythm with 1st degree A-V block Otherwise normal ECG Confirmed by YEIMI CHEUNG ([id number]), book or script editor GENE HOUSTON ([id number]) on 10/23/2017 1:24:06 PM Referred By: Confirmed By:YEIMI CHEUNG
== END 2017-10-18 10:36 | disposition home or self-care (01) | DRG 690 ==
LOC: ERS 22:08 → 2NO 23:20 → T4-A 10-16 14:56
PROVIDERS: ADMIT Internal Medicine; ATTEND Internal Medicine
DX: N39.0 Urinary tract infection, site not specified (principal); N17.9 Acute kidney failure, unspecified; E87.1 Hypo-osmolality and hyponatremia; J44.9 Chronic obstructive pulmonary disease, unspecified; E11.42 Type 2 diabetes mellitus with diabetic polyneuropathy; E03.9 Hypothyroidism, unspecified; F32.9 Major depressive disorder, single episode, unspecified; K21.9 Gastro-esophageal reflux disease without esophagitis; E11.22 Type 2 diabetes mellitus with diabetic chronic kidney disease; E11.65 Type 2 diabetes mellitus with hyperglycemia; I12.9 Hypertensive chronic kidney disease with stage 1 through stage 4 chronic kidney disease, or unspecified chronic kidney disease; N18.3 Chronic kidney disease, stage 3 (moderate); G31.83 Neurocognitive disorder with Lewy bodies; F02.80 Dementia in other diseases classified elsewhere, unspecified severity, without behavioral disturbance, psychotic disturbance, mood disturbance, and anxiety; N40.1 Benign prostatic hyperplasia with lower urinary tract symptoms; R39.11 Hesitancy of micturition; C67.9 Malignant neoplasm of bladder, unspecified; Z87.891 Personal history of nicotine dependence; Z79.82 Long term (current) use of aspirin; Z79.4 Long term (current) use of insulin; Z79.899 Other long term (current) drug therapy
CPT/HCPCS: 36415; 36416; 80048; 80069; 81001; 83605; 84443; 85025; 87040; 87086; 93005; 94640; 96365; A4216; G8978-GP-CK; G8979-GP-CK; G8980-GP-CK; G8987-GO-CJ; G8988-GO-CI; J0692; J1650; J1956; J7050; J7620

== ENCOUNTER 2018-02-02 03:32 | Observation (INO) | payer MEDICARE ==
[2018-02-02 04:51] LABS: Anion Gap 14 mmol/L (10-20); BUN (Urea Nitrogen) 31 mg/dL (8.4-25.7); Calc. Creatinine Clearance 0 mL/min (70-130); Calcium 10.3 mg/dL (7.8-10.44); Carbon Dioxide 18 mmol/L (23-31); Chloride 104 mmol/L (98-107); Estimated GFR-MDRD 38; Glucose 160 mg/dL (83-110); Potassium 5.1 mmol/L (3.5-5.1); Sodium 131 mmol/L (136-145)
[2018-02-02 06:12] LABS: Troponin I Less than 0.010 ng/mL (< 0.028)
[2018-02-02] MEDS ORDERED: Acetaminophen 325 MG TAB PO PRN (06:25)
[2018-02-02] MEDS ORDERED: Dextrose 50% Abboject 50 ML SYRINGE SLOW IVP PRN (06:25)
[2018-02-02] MEDS ORDERED: Dextrose 5% in Water 1,000 ML IV PRN (06:25)
[2018-02-02] MEDS ORDERED: Ondansetron HCl/PF 4 MG/2 ML Vial IVP PRN (06:25)
[2018-02-02 06:38] VITALS: BMI 28.0
--- NOTE | 2018-02-02 06:57 | PDOC.EVN ---
Event Note - Event Note Event Note: RN has notified me that the pt and has stated that they would like to have a trial of intubation/resscitation, but not to kept in life support if not hope for meaningful recover is seen after intubation, will place pt back to full code. .
[2018-02-02 08:53] LABS: Troponin I Less than 0.010 ng/mL (< 0.028)
[2018-02-02] MEDS ORDERED: Levothyroxine Sodium 100 MCG TAB PO SCH (09:00)
[2018-02-02] MEDS: HumaLOG 300 UNITS/3 ML VIAL SC PRN ×2 (11:03→17:22)
[2018-02-02] MEDS: Ramipril 5 MG CAP PO SCH (11:04)
[2018-02-02] MEDS: Enoxaparin Sodium 40 MG/0.4 ML SYRINGE SC SCH (11:04)
[2018-02-02] MEDS: Citalopram 20 MG TAB PO SCH (11:05)
[2018-02-02] MEDS: Finasteride 5 MG TAB PO SCH (11:05)
[2018-02-02] MEDS: Ezetimibe 10 MG TAB PO SCH (11:07)
[2018-02-02] MEDS: Sodium Chloride 0.9% 1,000 ML IV SCH (11:10)
--- NOTE | 2018-02-02 11:59 | PDOC.PN ---
- Subjective Encounter Start Date: 02/02/18 Encounter Start Time: 11:58 Subjective: feels much better now. reports poor Po intake - Objective Resuscitation Status: Resuscitation Status FULL:Full Resuscitation MAR Reviewed: Yes Vital Signs & Weight: Vital Signs (12 hours) Temp Pulse Resp BP BP BP BP 02/02/18 11:38 81 16 02/02/18 11:04 165/79 H 02/02/18 07:32 98.1 F 89 18 112/71 118/74 02/02/18 06:01 97.8 F 85 18 153/76 H BP Pulse Ox 02/02/18 11:38 97 02/02/18 11:04 02/02/18 07:32 165/79 H 94 L 02/02/18 06:01 97 Weight Weight 206 lb 11.2 oz Result Diagrams: 02/02/18 04:09 Additional Labs: Accuchecks 02/02/18 06:14 POC Glucose 192 H Microbiology 11/10/16 16:27 Urine Straight Catheter Urine Culture - Final NO GROWTH AT 36 HOURS 11/10/16 14:30 Venous blood - Right Hand Blood Culture - Preliminary Specimen has been received and culture in progress. No Growth to date. 11/10/16 14:21 Venous blood - Right Arm Blood Culture - Preliminary Specimen has been received and culture in progress. No Growth to date. Laboratory Tests 11/27/17 02/02/18 02/02/18 10:50 00:10 04:09 Potassium 4.7 6.1 H 5.1 Troponin I 02/02/18 02/02/18 04:09 08:02 Potassium Troponin I Less than 0.010 Less than 0.010 Phys Exam - Physical Examination Constitutional: NAD HEENT: PERRLA, moist MMs, sclera anicteric, oral pharynx no lesions Neck: no nodes, no JVD, supple, full ROM Respiratory: no wheezing, no rales, no rhonchi, clear to auscultation bilateral Cardiovascular: RRR, no significant murmur, no rub Gastrointestinal: soft, non-tender, no distention, positive bowel sounds Musculoskeletal: no edema, pulses present Neurological: non-focal, normal sensation, moves all 4 limbs Psychiatric: normal affect, A&O x 3 Skin: no rash Dx/Plan (1) Orthostatic hypotension Code(s): I95.1 - ORTHOSTATIC HYPOTENSION Status: Acute (2) Syncope and collapse Code(s): R55 - SYNCOPE AND COLLAPSE Status: Acute (3) JEZ (acute kidney injury) Code(s): N17.9 - ACUTE KIDNEY FAILURE, UNSPECIFIED Status: Acute (4) Dehydration Code(s): E86.0 - DEHYDRATION Status: Acute (5) BPH (benign prostatic hyperplasia) Code(s): N40.0 - BENIGN PROSTATIC HYPERPLASIA WITHOUT LOWER URINRY TRACT SYMP Status: Chronic Qualifiers: Lower urinary tract symptom presence: symptoms present Lower urinary tract symptom detail: urinary hesitancy Qualified Code(s): N40.1 - Benign prostatic hyperplasia with lower urinary tract symptoms; R39.11 - Hesitancy of micturition ; R39.11 - Hesitancy of micturition (6) CKD (chronic kidney disease) Code(s): N18.9 - CHRONIC KIDNEY DISEASE, UNSPECIFIED Status: Chronic Qualifiers: Chronic kidney disease stage: stage 3 (moderate) Qualified Code(s): N18.3 - Chronic kidney disease, stage 3 (moderate) (7) Diabetes type 2, controlled Code(s): E11.9 - TYPE 2 DIABETES MELLITUS WITHOUT COMPLICATIONS Status: Chronic (8) Hypertension Code(s): I10 - ESSENTIAL (PRIMARY) HYPERTENSION Status: Chronic Qualifiers: Hypertension type: essential hypertension Qualified Code(s): I10 - Essential (primary) hypertension (9) Hyponatremia Code(s): E87.1 - HYPO-OSMOLALITY AND HYPONATREMIA Status: Chronic (10) Hypothyroidism Code(s): E03.9 - HYPOTHYROIDISM, UNSPECIFIED Status: Chronic Qualifiers: Hypothyroidism type: unspecified Qualified Code(s): E03.9 - Hypothyroidism , unspecified (11) Lewy body dementia Code(s): G31.83 - DEMENTIA WITH LEWY BODIES; F02.80 - DEMENTIA IN OTH DISEASES CLASSD ELSWHR W/O BEHAVRL DISTURB Status: Suspected Qualifiers: Dementia behavioral disturbance: without behavioral disturbance Qualified Code(s): G31.83 - Dementia with Lewy bodies; F02.80 - Dementia in other diseases classified elsewhere without behavioral disturbance; F02.80 - Dementia in other diseases classified elsewhere without behavioral disturbance; F02.80 - Dementia in other diseases classified elsewhere without behavioral disturbance - Plan plan discussed w/ family, PT/OT, out of bed/ambulate, DVT proph w/SCDs orthostatic hypotension likley d/t poor PO intake.start IVF -: check UA given h/o frequent UTI. -: Potassium back to NL.Cr better. -: restart BP meds cautiously.restart rest of home meds as below -: ECHO,carotid US ordered. follow results.Both NL 1 yr ago * . Review of Systems - Review of Systems Constitutional: weakness. negative: fever, chills, sweats, malaise, other ENT: negative: Ear Pain, Ear Discharge, Nose Pain, Nose Discharge, Nose Congestion, Mouth Pain, Mouth Swelling, Throat Pain, Throat Swelling, Other Respiratory: negative: Cough, Dry, Shortness of Breath, Hemoptysis, SOB with Excertion, Pleuritic Pain, Sputum, Wheezing Cardiovascular: negative: chest pain, palpitations, orthopnea, paroxysmal nocturnal dyspnea, edema, light headedness, other Gastrointestinal: negative: Nausea, Vomiting, Abdominal Pain, Diarrhea, Constipation, Melena, Hematochezia, Other Genitourinary: negative: Dysuria, Frequency, Incontinence, Hematuria, Retention , Other Musculoskeletal: negative: Neck Pain, Shoulder Pain, Arm Pain, Back Pain, Hand Pain, Leg Pain, Foot Pain, Other Skin: negative: Rash, Lesions, Quintin, Bruising, Other Neurological: negative: Weakness, Numbness, Incoordination, Change in Speech, Confusion, Seizures, Other - Medications/Allergies Allergies/Adverse Reactions: Allergies Allergy/AdvReac Type Severity Reaction Status Date / Time No Known Allergies Allergy Verified 02/02/18 06:46 Medications: Current Medications Acetaminophen (Tylenol) 650 mg PO Q4H PRN PRN Reason: Headache/Fever or Pain Albuterol/Ipratropium (Duoneb) 3 ml NEB [id number] [facility] Last Admin: 02/02/18 11:38 Dose: 3 ml Aspirin (Aspirin Chewable) 81 mg PO DAILY [facility] Last Admin: 02/02/18 11:05 Dose: 81 mg Citalopram Hydrobromide (Celexa) 40 mg PO DAILY [facility] Last Admin: 02/02/18 11:05 Dose: 40 mg Dextrose/Water (Dextrose 50%) 25 gm SLOW IVP PRN PRN PRN Reason: Hypoglycemia Donepezil HCl (Aricept) 10 mg PO HS [facility] Ezetimibe (Zetia) 10 mg PO DAILY [facility] Last Admin: 02/02/18 11:07 Dose: 10 mg Enoxaparin Sodium (Lovenox) 40 mg SC 0900 [facility] Last Admin: 02/02/18 11:04 Dose: 40 mg Finasteride (Proscar) 5 mg PO DAILY [facility] Last Admin: 02/02/18 11:05 Dose: 5 mg Glucagon (Glucagon) 1 mg IM PRN PRN PRN Reason: Hypoglycemia Dextrose/Water (D5w) 1,000 mls @ 0 mls/hr IV .Q0M PRN PRN Reason: Hypoglycemia Sodium Chloride (Normal Saline 0.9%) 1,000 mls @ 75 mls/hr IV .[id number] [facility] Last Admin: 02/02/18 11:10 Dose: 1,000 mls Insulin Human Lispro (Humalog) 0 units SC .MILD SLIDING SCALE PRN PRN Reason: Mild Correctional Scale Last Admin: 02/02/18 11:03 Dose: 4 unit Levothyroxine Sodium (Synthroid) 100 mcg PO 0600 [facility] Memantine (Namenda) 20 mg PO DAILY [facility] Last Admin: 02/02/18 11:05 Dose: 20 mg Ondansetron HCl (Zofran) 4 mg IVP Q6H PRN PRN Reason: Nausea/Vomiting Pantoprazole Sodium (Protonix) 40 mg PO DAILY [facility] Last Admin: 02/02/18 11:06 Dose: 40 mg Ramipril (Altace) 10 mg PO DAILY [facility] Last Admin: 02/02/18 11:04 Dose: 10 mg Sodium Chloride (Flush - Normal Saline) 10 ml IVF Q12HR [facility] Last Admin: 02/02/18 11:05 Dose: 10 ml Sodium Chloride (Flush - Normal Saline) 10 ml IVF PRN PRN PRN Reason: Saline Flush
--- NOTE | 2018-02-02 15:22 | ULT ---
BILATERAL CAROTID DUPLEX ULTRASOUND: DATE: 02/02/18 HISTORY: Syncope. TECHNIQUE: Osei scale ultrasound with color flow and spectral Doppler imaging of the extracranial carotid artery systems performed. FINDINGS: There is plaque formation on either side. The peak systolic velocity in the right ICA measures 71 cm/second with an end-diastolic velocity of 1 7 cm/second and a systolic ratio of 0.77. The peak systolic velocity in the left ICA measures 62 cm/second with an end-diastolic velocity of 13 cm/second and a systolic ratio of 0.71. Flow in both vertebral arteries remains antegrade. IMPRESSION: No evidence of hemodynamically significant stenosis. POS: BABAK
[2018-02-02 16:09] LABS: Bilirubin Negative (Negative); Blood, Urine Trace (Negative); Clarity CLEAR (Clear); Glucose, Urine (Dipstick) 500 mg/dL (Negative); Leukocyte Negative (Negative); Nitrite Negative (Negative); Protein, Urine (Dipstick) 100 mg/dL (Neg-Trace); Specific Gravity, Urine 1.018 (1.002-1.036); Urobilinogen 0.2 mg/dL (0.2-1.0); pH, Urine 5.5 (5.0-9.0)
[2018-02-02 16:11] LABS: Bacteria/HPF None Seen HPF (None Seen); Hyaline Casts/LPF 0-3 HYALINE CAST LPF (0-3 Hyaline); Pathc Cast-AUWi Flag 0.58 (0-2.49); Squamous Epithelial 0-3 HPF (0-3)
[2018-02-02 16:19] LABS: Yeast-All Forms None Seen HPF (None Seen)
[2018-02-02] MEDS ORDERED: Donepezil HCl 5 MG TAB PO SCH (21:00)
[2018-02-03] MEDS: Sodium Chloride 0.9% 1,000 ML IV SCH (00:14)
[2018-02-03 04:27] LABS: #Eosinphils 0.2 thou/uL (0.0-0.7); #Lymphocytes 1.7 thou/uL (1.20-3.40); #Monocytes 0.4 thou/uL (0.11-0.59); #Neutrophils 3.6 thou/uL (1.40-6.50); %Basophils 0.7 % (0.0-1.0); %Eosinophils 3.3 % (0.0-10.0); %Lymphocytes 28.2 % (21.0-51.0); %Monocytes 7.3 % (0.0-10.0); %Neutrophils 60.6 % (42.0-75.0); Hemoglobin 10.6 g/dL (14.0-18.0); Mean Corpuscular HGB CONC 33.9 g/dL (32.0-36.0); Mean Corpuscular Hemoglobin 31.1 pg (27.0-31.0); Mean Platelet Volume 7.2 fL (7.4-10.4); Platelet Count 202 thou/uL (130-400); RBC Distribution Width 11.8 % (11.5-14.5)
[2018-02-03 04:44] LABS: Anion Gap 12 mmol/L (10-20); BUN (Urea Nitrogen) 21 mg/dL (8.4-25.7); Calc. Creatinine Clearance 53 mL/min (70-130); Calcium 9.1 mg/dL (7.8-10.44); Carbon Dioxide 19 mmol/L (23-31); Chloride 104 mmol/L (98-107); Estimated GFR-MDRD 45; Glucose 202 mg/dL (83-110); Potassium 4.2 mmol/L (3.5-5.1); Sodium 131 mmol/L (136-145)
[2018-02-03] MEDS: HumaLOG 300 UNITS/3 ML VIAL SC PRN ×2 (05:42→11:38)
[2018-02-03] MEDS ORDERED: Levothyroxine Sodium 100 MCG TAB PO SCH (06:00)
[2018-02-03 07:59] VITALS: TEMP 98.4
[2018-02-03] MEDS ORDERED: Fosfomycin 3 GM/Packet PO SCH (08:30)
[2018-02-03] MEDS ORDERED: Amlodipine 10 MG TAB PO SCH (09:00)
[2018-02-03] MEDS: Citalopram 20 MG TAB PO SCH (09:16)
[2018-02-03] MEDS: Finasteride 5 MG TAB PO SCH (09:17)
[2018-02-03] MEDS: Enoxaparin Sodium 40 MG/0.4 ML SYRINGE SC SCH (09:17)
[2018-02-03] MEDS: Ezetimibe 10 MG TAB PO SCH (09:17)
[2018-02-03] MEDS: Ramipril 5 MG CAP PO SCH (09:18)
[2018-02-03 10:40] VITALS: BP 167/79
--- NOTE | 2018-02-03 10:57 | HP ---
PRIMARY CARE PHYSICIAN: Dr. Hameed. CODE STATUS: DNR as stated by with the patient, RN as a witness as per patient's wishes. TIME OF EVALUATION: 6:10 a.m. CHIEF COMPLAINT: Syncope. HISTORY OF PRESENT ILLNESS: This is a 77-year-old male patient with past medical history of multiple comorbidities including Alzheimer's, esophagitis, hypothyroidism, diverticulitis, GERD, BPH, one epi sode of seizure in 2016, mild dementia, diabetes type 2, who came to the hospital after having an epi sode of syncope, falling in the bathroom, patient was found by when he was surrounded by feces, no clear triggers, no alleviating factors, the patient was alert, but reporting that he had severe ge neralized weakness. He was unable to stand up from the floor by himself, he reported that this has h appened before. Symptoms were severe. As per , it seems that the patient had loss of consciousn ess. REVIEW OF SYSTEMS: Mildly limited, the patient has mild dementia. Constitutional: No fever or chil ls. Generalized weakness was reported by the patient. Respiratory: No cough, sputum production or shortness of breath. Cardiovascular: No chest pain, palpitation. Gastrointestinal: No nausea, no vomiting, diarrhea or abdominal pain. Central Nervous System: The patient had a syncope episode, re ported generalized weakness, no headache, feeling lightheaded. Genitourinary: No burning with urina tion. Extremities: No leg swelling. All other systems were reviewed and negative except for the fi ndings mentioned above. The helped us with her interview given patient's marked dementia. PAST MEDICAL HISTORY: Was mentioned in the HPI. PAST SURGICAL HISTORY: The patient had bladder cancer in 1970, also surgery in 08/2013 due to tumor in the bladder, right shoulder arthroscopic rotator cuff repair, transurethral resection of the bladd er tumor. PSYCHIATRIC HISTORY: No previous psych history, but mild dementia. SOCIAL HISTORY: Patient drinks socially every week. No drug use. No smoking history. FAMILY HISTORY: Noncontributory to this case. KNOWN ALLERGIES: No known drug allergies. REPORTED MEDICATIONS: Lantus 25 units subcu once a day, levothyroxine 100 mcg orally once a day, met formin 1 gram orally 2 times a day, finasteride 5 mg orally once a day, ramipril 10 mg daily, Azelast ine, Anoro Ellipta, omeprazole, glimepiride, Coenzyme Q10, amlodipine, Aricept, probiotic, aspirin, Z yrtec, Celexa, Namenda, gabapentin, magnesium, Zetia. PHYSICAL EXAMINATION: VITAL SIGNS: Blood pressure 150/86, heart rate is 90, respiratory rate was 18, temperature 98, pain was 4/10, oxygen saturation 98. GENERAL APPEARANCE: The patient is alert, oriented, not in any acute distress. HEENT: Eyes: Normal conjunctivae. Moist oral mucosa. Anicteric. NECK: No JVD. RESPIRATORY: Bilateral air entry. No rales, no wheezing. Symmetric expansion. CARDIOVASCULAR: Normal rate, regular rhythm. No murmurs, no gallop. No edema. ABDOMEN: Soft, normal bowel sounds. MUSCULOSKELETAL: Baseline range of motion and strength. No tenderness. SKIN: Warm and intact. No pallor, no rash. No redness. Peripheral pulses are present. Capillary refill seems to be intact. NEUROLOGIC: Baseline sensory. No evidence of any new focal weakness. Baseline speech. Cranial ner ves seem to be intact. PSYCHIATRIC: The patient is in good mouth. No anxiety, oriented. Suboptimal judgment. Patient has some mild dementia. IMAGING: EKG was reviewed. The patient had sinus rhythm with first-degree AV block, ventricular rat e 89, IN 224, QRS 108, QT corrected 472. The chest x-ray has not been reported yet. It was reviewed by myself. Patient has cardiomegaly, no significant evidence of cardiopulmonary abnormality. No ma humaira bone abnormalities other than osteoporosis. No significant abnormalities of soft tissue. Marahi al report needs to be followed. LABORATORY DATA: Labs were reviewed. The patient has sodium 131, potassium 5.1, chloride 104, carbo n dioxide 18, anion gap 14, BUN 31 with creatinine 1.76, GFR 38, glucose 160. Troponin was negative. Prior to transfer, labs were reviewed. The patient has a white count of 12.8, hemoglobin 12.6, MCV 89, platelet count 230. Chemistry from prior to transfer labs, most significant finding is potassiu m of 6.1. ASSESSMENT AND PLAN: The patient will be placed in the hospital with the following medical problems: 1. Syncope, no clear etiology. Patient was alone. There were no witnesses. Unclear if the patient had total loss of consciousness or not. He just reported he was so weak that he could not stand up from the floor and then he has some gaps in the memory, but the patient has also underlying mild keyshawn ntia, went to [facility], we will do carotid Doppler, there is no evidence of any focal weakness. No slurr ed speech. No signs pointing to a stroke, so we will not proceed with a stroke protocol at this poin t. As noted, the patient has a cochlear implant, so he has contraindication for MRI. In case he nee ds further stroke workup, he is unable to take it. We will keep him on tele. 2. Moderate hyperkalemia with potassium of 6.1, prior to transfer he was given treatment for hyperka lemia and it has come down to 5.1 in the repeat one here. Continue to monitor, we will correct if ne eded. 3. Leukocytosis. This is mild, white count 12.8, no evidence of infection, we will do UA and follo w up, sometimes the urinary tract infection condescends like this. We will treat accordingly. 4. Hyponatremia. This is mild, sodium of 131, we will monitor, no need for any acute intervention a t this point. 5. Mild metabolic alkalosis with carbon dioxide 18, we will monitor, no need for any acute intervent ion at this point. 6. Chronic kidney disease with a GFR of 38, so stage 3. 7. Uncontrolled diabetes with glucose of 160, hyperglycemia, we will place the patient on sliding sc dylan. 8. Uncontrolled hypertension. Systolic blood pressure 158, was hypertensive, we will reconcile home medications and adjust treatment as needed. 9. History of Alzheimer disease, mild dementia, that may be the reason why the patient does not reca ll exactly what happened. He will need supportive care as inpatient. 10. Hypothyroidism, we will reconcile home medications. 11. Gastroesophageal reflux disease. We will reconcile home medications. 12. Deep venous thrombosis prophylaxis.
--- NOTE | 2018-02-03 17:05 | DIS ---
DATE OF ADMISSION: 02/02/2018 DATE OF DISCHARGE: 02/03/2018 CONDITION AT THE TIME OF DISCHARGE: Stable and improved. DISCHARGE DIAGNOSES: 1. Syncope secondary to orthostatic hypotension. 2. Early urinary tract infection. SECONDARY DISCHARGE DIAGNOSES: 1. Type 2 diabetes mellitus, uncontrolled. 2. Hypertension. 3. Chronic kidney disease. DISCHARGE MEDICATIONS: New medication, levofloxacin 500 mg p.o. daily for 3 days. Resume home medic ations as per the HPI. PROCEDURES DONE IN THE HOSPITAL: 1. Carotid Doppler ultrasound, which shows no hemodynamically significant stenosis. 2. Transthoracic echocardiogram, which shows EF of 60% to 65%, grade I/III diastolic dysfunction, ot herwise no acute abnormalities. HISTORY OF PRESENTING ILLNESS: Ms. Roman is a 77-year-old male with past medical history of diabet es, hypertension, and chronic kidney disease who presented to the emergency room after sustaining a s yncopal episode in the bathroom. Upon presentation, he was hemodynamically stable with blood pressur e of 150/86. EKG was unremarkable. Chest x-ray was unremarkable as well. His labs showed slight le ukocytosis with WBCs of 12.8, otherwise unremarkable. Potassium was 6.1 and creatinine was also elev ated to 1.76. Please see admission history and physical for further details. The patient was admitt ed on health safety coordinator. MRI could not be done because of a cochlear implant. HOSPITAL COURSE: He was also found to have slight hyponatremia with sodium of 131. He was resuscitated with IV fluids as he had signs and symptoms suggest dehydration. He had acute re nal insufficiency as well as positive orthostatics when checked upon presentation with significant dr dev from 165/79-112/71. His did give history of an adequate oral intake. Other than that, the p atient underwent cardiac and neurological workup which was unremarkable with a normal echo and normal carotid Doppler ultrasound. His urinalysis was checked as he has history of frequent UTIs, possibly related to benign prostatic hypertrophy. His urine did have some trace blood, glucose, protein, as well as 7-10 wbc's without leukocyte esterase and nitrites. Urine was sent for culture and with freq uent urinary tract infection history, it was decided to treat him with a short course of oral antibio tics. I have encouraged them to follow up with primary care physician, Dr. Hameed, before the end of this week for the results of the urine culture and a repeat UA and BMP. As of this morning, the patient is asymptomatic. He had no arrhythmias on the health safety coordinator. Hi s orthostatics have improved, but he is still having some drop in his blood pressure from lying to si tting position. I have instructed him to take his Norvasc at bedtime and proceed with caution for th e risk of falls. He is also instructed to increase his oral fluid intake extensively. Discharge chio n was discussed with the patient and his son present in the room and they verbalized understanding. He was seen and examined prior to discharge. PHYSICAL EXAMINATION: VITAL SIGNS: His vital signs show temperature 98.1, pulse of 89, respirations 18, saturating 97% on 2 liters nasal cannula, blood pressure 165/79. GENERAL APPEARANCE: No acute distress. CHEST: Clear to auscultation bilaterally. Rate and rhythm is regular. LABORATORY EXAMINATION: Blood sugar 253 PRIMARY CARE PHYSICIAN: Prabhjot Hameed.
== END 2018-02-03 12:24 | disposition home or self-care (01) ==
LOC: ERS 03:32 → 2SW 04:55
PROVIDERS: ADMIT Hospitalist; ATTEND Hospitalist
DX: I95.1 Orthostatic hypotension (principal); N39.0 Urinary tract infection, site not specified; E11.22 Type 2 diabetes mellitus with diabetic chronic kidney disease; I12.9 Hypertensive chronic kidney disease with stage 1 through stage 4 chronic kidney disease, or unspecified chronic kidney disease; N18.9 Chronic kidney disease, unspecified; N17.9 Acute kidney failure, unspecified; N40.1 Benign prostatic hyperplasia with lower urinary tract symptoms; R39.11 Hesitancy of micturition; E03.9 Hypothyroidism, unspecified; E87.1 Hypo-osmolality and hyponatremia; Z79.4 Long term (current) use of insulin; Z79.82 Long term (current) use of aspirin; Z79.899 Other long term (current) drug therapy
CPT/HCPCS: 80048 ×2; 82962 ×2; 84484; 85025; 87086; 93005; 93306; 93880; 94640 ×3; 94760; 96360; 96361 ×2; 96372 ×2; 99285; G0378 ×2; 36415; 36416; 81003; 81015; A4216; J1650; J7620

== ENCOUNTER 2018-04-22 07:30 | Outpatient (CLI) | payer MEDICARE ==
--- NOTE | 2018-04-22 08:59 | CT ---
ABDOMEN AND PELVIC CT SCAN WITHOUT IV CONTRAST: History: 78-year-old male with history of hematuria. Comparison: 12-30-15 FINDINGS: There are some bilateral lower lung zone chronic interstitial changes including some honeycombing and some right lower lobe bronchiectasis. Small hiatal hernia. Somewhat small contracted gallbladder. Se veral stable right renal cysts. Stable left renal peripelvic fat stranding and stable left adrenal ad enoma. 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 Otherwise live r, pancreas, spleen, and right adrenal gland are unremarkable. No renal calculus or acute obstruct ion. There is some scattered chronic diverticulosis without diverticulitis. There is some mild bladde r wall thickening, slightly more focally prominent on the left side than the right, nonspecific. The bladder is not significantly distended. IMPRESSION: No renal calculus or acute obstruction. Slight focal thickening of the left side of the bladder wa ll compared to the right, nonspecific. Stable chronic lung changes in the bases, right renal cyst, le ft renal parapelvic fat stranding and left adrenal adenoma. POS: [facility]
== END 2018-04-22 07:31 | disposition home or self-care (01) ==
LOC: CT 07:30
PROVIDERS: ATTEND Urology
DX: R31.0 Gross hematuria (principal); N32.89 Other specified disorders of bladder; J98.4 Other disorders of lung; N28.1 Cyst of kidney, acquired; D35.02 Benign neoplasm of left adrenal gland
CPT/HCPCS: 74176; 81001; 87086

== ENCOUNTER 2019-03-20 18:03 | Emergency (ER) | payer MEDICARE ==
[2019-03-20 18:43] LABS: #Basophils 0.1 thou/uL (0.0-0.2); #Eosinphils 0.3 thou/uL (0.0-0.7); #Monocytes 0.6 thou/uL (0.11-0.59); #Neutrophils 4.5 thou/uL (1.40-6.50); %Basophils 0.7 % (0.0-1.0); %Eosinophils 4.5 % (0.0-10.0); %Lymphocytes 26.7 % (21.0-51.0); %Monocytes 8.5 % (0.0-10.0); %Neutrophils 59.7 % (42.0-75.0); Hemoglobin 13.9 g/dL (14.0-18.0); Mean Corpuscular HGB CONC 33.8 g/dL (32.0-36.0); Mean Corpuscular Hemoglobin 30.8 pg (27.0-31.0); Mean Corpuscular Volume 91.1 fL (78.0-98.0); Mean Platelet Volume 7.2 fL (7.4-10.4); Platelet Count 212 thou/uL (130-400); RBC Distribution Width 12.1 % (11.5-14.5); Red Blood Cell (RBC) Count 4.52 mill/uL (4.70-6.10); White Blood Cell (WBC) Count 7.6 thou/uL (4.8-10.8)
[2019-03-20 19:05] LABS: ALT (SGPT) 11 U/L (8-55); AST (SGOT) 13 U/L (5-34); Albumin 3.9 g/dL (3.4-4.8); Alkaline Phosphatase 88 U/L (40-110); Anion Gap 12 mmol/L (10-20); BUN (Urea Nitrogen) 28 mg/dL (8.4-25.7); Bilirubin, Total 0.4 mg/dL (0.2-1.2); Calc. Creatinine Clearance 0 mL/min (70-130); Calcium 9.4 mg/dL (7.8-10.44); Carbon Dioxide 26 mmol/L (23-31); Chloride 102 mmol/L (98-107); Estimated GFR-MDRD 39; Globulin 3.5 g/dL (2.4-3.5); Glucose 189 mg/dL (83-110); Potassium 4.5 mmol/L (3.5-5.1); Protein, Total 7.4 g/dL (5.8-8.1); Sodium 135 mmol/L (136-145)
--- NOTE | 2019-03-20 19:40 | RAD ---
PORTABLE CHEST ONE VIEW: 03/20/19 at 7:19 p.m. HISTORY: Altered mental status. Generalized weakness. FINDINGS: Comparison made with exam of 08/09/18. The heart is enlarged. The lungs are expanded without lobar consolidation, pneumothoraces, amalia pulm onary edema or pleural effusions. IMPRESSION: No acute process. POS: [facility]
--- NOTE | 2019-03-20 21:42 | CT ---
CT BRAIN WITHOUT CONTRAST: 03/20/19 HISTORY: Altered mental status. Weakness. COMPARISON: 02/02/18. FINDINGS: Changes of cortical atrophy and chronic small vessel ischemic disease are again seen. The ventricular size is stable and the basilar cisterns patent. No evidence of acute infarct, hemorrhage, midline sh ift or abnormal extra-axial fluid collections are seen. The bony calvarium is intact. A left sided c ochlear implant is again noted. IMPRESSION: No CT evidence of acute intracranial process. POS: [facility]
[2019-03-20 22:37] LABS: Bacteria/HPF None Seen HPF (None Seen); Bilirubin Negative (Negative); Blood, Urine Negative (Negative); Clarity Clear (Clear); Glucose, Urine (Dipstick) 300 mg/dL (Negative); Leukocyte Negative Leu/uL (Negative); Nitrite Negative (Negative); Protein, Urine (Dipstick) 100 mg/dL (Neg-Trace); RBC/HPF 0-3 HPF (0-3); Squamous Epithelial None Seen HPF (0-3); Urobilinogen Normal mg/dL (Less than 2); WBC/HPF 0-3 HPF (0-3)
== END 2019-03-20 23:39 | disposition home or self-care (01) ==
LOC: ERS 18:03
DX: R53.1 Weakness (principal); R29.6 Repeated falls; I10 Essential (primary) hypertension; E03.9 Hypothyroidism, unspecified; E11.42 Type 2 diabetes mellitus with diabetic polyneuropathy; Z87.891 Personal history of nicotine dependence; Z79.899 Other long term (current) drug therapy
CPT/HCPCS: 51701; 70450; 71045; 80053; 81003; 81015; 84484; 85025; 93005; 94760

== ENCOUNTER 2019-05-28 13:10 | Outpatient (CLI) | payer MEDICARE ==
[2019-05-28 18:17] LABS: Mean Corpuscular HGB CONC 33.5 g/dL (32.0-36.0); Mean Corpuscular Hemoglobin 30.9 pg (27.0-31.0); Mean Corpuscular Volume 92.2 fL (78.0-98.0); Mean Platelet Volume 7.9 fL (7.4-10.4); Platelet Count 216 thou/uL (130-400); RBC Distribution Width 12.5 % (11.5-14.5); Red Blood Cell (RBC) Count 4.54 mill/uL (4.70-6.10); White Blood Cell (WBC) Count 7.5 thou/uL (4.8-10.8)
[2019-05-28 18:23] LABS: INR-International Normal Ratio 1.1; PTT 26.1 SEC (22.9-36.1); Prothrombin Time 13.8 SEC (12.0-14.7)
[2019-05-28 18:46] LABS: Anion Gap 14 mmol/L (10-20); BUN (Urea Nitrogen) 30 mg/dL (8.4-25.7); Calc. Creatinine Clearance 0 mL/min (70-130); Calcium 8.7 mg/dL (7.8-10.44); Carbon Dioxide 22 mmol/L (23-31); Chloride 102 mmol/L (98-107); Estimated GFR-MDRD 33; Glucose 261 mg/dL (83-110); Potassium 5.4 mmol/L (3.5-5.1); Sodium 133 mmol/L (136-145)
== END 2019-05-28 13:11 | disposition home or self-care (01) ==
LOC: LABBT 13:10
PROVIDERS: ATTEND Urology
DX: Z01.812 Encounter for preprocedural laboratory examination (principal); C67.9 Malignant neoplasm of bladder, unspecified; N40.1 Benign prostatic hyperplasia with lower urinary tract symptoms; N28.1 Cyst of kidney, acquired; D35.02 Benign neoplasm of left adrenal gland; R81 Glycosuria; R80.8 Other proteinuria; N28.9 Disorder of kidney and ureter, unspecified
CPT/HCPCS: 80048; 85027; 85610; 85730; 93005; 93010

== ENCOUNTER 2019-06-10 06:13 | Day surgery (SDC) | payer MEDICARE ==
[2019-05-28 16:38] VITALS: BMI 29.4
[2019-06-10] MEDS ORDERED: Fentanyl 100 MCG/2 ML VIAL ONE (06:22)
[2019-06-10] MEDS ORDERED: Propofol 500 MG/50 ML VIAL ONE (06:34)
[2019-06-10] MEDS ORDERED: Levofloxacin 500 mg/D5W 100 ml Premix Bag ONE (07:19)
[2019-06-10 07:20] LABS: Anion Gap 14 mmol/L (10-20); BUN (Urea Nitrogen) 34 mg/dL (8.4-25.7); Calc. Creatinine Clearance 43 mL/min (70-130); Calcium 9.7 mg/dL (7.8-10.44); Carbon Dioxide 20 mmol/L (23-31); Chloride 104 mmol/L (98-107); Estimated GFR-MDRD 35; Glucose 167 mg/dL (83-110); Potassium 4.8 mmol/L (3.5-5.1); Sodium 133 mmol/L (136-145)
[2019-06-10] MEDS ORDERED: Iothalamate Meglumine 60% 50 ML VIAL FS ONE (07:23)
[2019-06-10] MEDS ORDERED: Oxybutynin 5 MG TAB ONE (09:24)
[2019-06-10] MEDS ORDERED: Phenazopyridine HCl 97.5 MG TABLET ONE ×2 (09:25)
--- NOTE | 2019-06-10 10:56 | RAD ---
RETROGRADE IVP: HISTORY: Stent placement for hydronephrosis. FINDINGS/IMPRESSION: Multiple limited intraoperative fluoroscopic views from retrograde IVP were submitted for interpretat ion. Contrast is seen in both renal collecting systems. No significant left hydronephrosis is seen. There is moderate right hydronephrosis. Eventually, a double-J ureteral stent is placed which appe ars in good position. POS: [facility]
[2019-06-10] MEDS ORDERED: EPHEDRINE 25 MG/5 ML SYRINGE ONE (11:03)
[2019-06-10] MEDS ORDERED: Lidocaine 1% PF 5 ML VIAL ONE (11:03)
[2019-06-10] MEDS ORDERED: Ondansetron PF 4 MG/2 ML Vial ONE (11:03)
[2019-06-10] MEDS ORDERED: PROPOFOL 200 MG/20 ML VIAL ONE (11:03)
[2019-06-10] MEDS ORDERED: HYDROcodone/Acetaminophen 5/325 mg Tablet ONE (11:54)
--- NOTE | 2019-06-10 11:58 | OP ---
DATE OF PROCEDURE: 06/10/2019 PREOPERATIVE DIAGNOSES: 1. An 79-year-old male with history of benign prostatic hyperplasia, status post GreenLight laser prostatectomy with residual mid to apical obstructing lateral lobes with incomplete emptying. 2. 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 3. History of chronically-dilated proximal ureter with no significant hydronephrosis. 4. Positive cytology. POSTOPERATIVE DIAGNOSES: 1. An 79-year-old male with history of benign prostatic hyperplasia, status post GreenLight laser prostatectomy with residual mid to apical obstructing lateral lobes with incomplete emptying. 2. 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 3. History of chronically-dilated proximal ureter with no significant hydronephrosis. 4. Positive cytology. PROCEDURES PERFORMED: Cystoscopy, random bladder biopsy, fulguration of biopsy site, bilateral retrograde pyelogram, right ureteroscopy, diagnostic, 6 x 30 double-J ureteral stent with distal tail in situ, UroLift implant x6. ANESTHESIA: LMA. COMPLICATIONS: None apparent. DISPOSITION: To recovery room in stable condition. INDICATIONS FOR PROCEDURE AND HISTORY: Mr. Roman is a pleasant 79-year-old male with history of BPH, previously followed by Dr. Guevara and Dr. Singh. He has been on Flomax b.i.d., finasteride, which was started in 2007. He does have incomplete emptying history with prior history of PVR vary from 600 to 700 mL. His last known PVR has been variable from on the average 297 to 210. Few months ago, he was admitted to the rehab facility in a postvoid residual of 400 mL. A cystoscopy demonstrated persistent mid to apical obstructing lateral lobes. He was advised regarding UroLift, based on volume study, he is a good candidate. Options of TURP also discussed, however, we discussed less invasive approach favored, which agrees. His preop urine demonstrated positive cytology. His last cystoscopy of record 3 months ago demonstrated no evidence of lesions of concern. He does have chronically-dilated right proximal ureter, which has been present for numerous years with no soft tissue component and no hydronephrosis. Indications for the procedure have been discussed with the patient and in detail and she desired to proceed with UroLift and above diagnostic procedure. DESCRIPTION OF PROCEDURE: After an informed consent was signed, the patient was taken to the operating room, placed in a dorsal lithotomy position with the genital area prepped and draped in the usual surgical sterile fashion. A 21-German cystoscope was utilized for cystoscopy, which again demonstrated normal anterior urethra. Prostatic urethra was staged demonstrating a bladder neck that was open, with a good TUR defect, however, he has residual mid to apical prostatic lobes obstructing in nature. We entered the bladder, which demonstrated trabeculated bladder consistent with chronic outlet obstruction. The UOs were identified in normal anatomical location. The right UO was patulous, likely consistent with prior TUR of the tumor in this site. Left UO was normal morphology. Bilateral clear efflux of urine was noted. We used a 30-degree and a 70-degree lens and I did not see any lesions of concern. A random bladder biopsy was performed with endoscopic biopsy and fulguration. A Bugbee was utilized to fulgurate the biopsy site. At this time, we performed bilateral retrograde pyelogram. Left retrograde pyelogram demonstrated no evidence of filling defect and was prompt excretion of contrast with no hydroureter, ureteral narrowing of concern. A right retrograde pyelogram was performed and consistent with the CT scan, there was prominence of the right proximal ureter from the renal pelvis to the mid ureter. This reflects the area of the gonadal vein crossing, which demonstrated a tapering of the ureter at this site and subsequent prominent dilated ureter more distally to the level of the UO. Retrograde pyelogram was performed. Due to dilated distal ureter, most of the contrast effluxed immediately. We passed an open-ended catheter further up and we opacified the collecting system delineating the narrowing in the mid ureter. He did demonstrate good efflux bilaterally. Left drained more probably than the right. We subsequently transition to a UroLift procedure and we watched his drainage of contrast from the right collecting system. We subsequently transitioned to a UroLift cystoscope, with a visual obturator. We placed again at the level of the bladder neck, it was open. Therefore, at the mid prostate, we placed our first left lateral implant. A total of three implants on the left and two on the right was performed. I did have to rescue one implant on the left side, which it did not engage appropriately. Therefore, the needle was removed through the sheath atraumatically. A total of 5 implants remain in situ, one was rescued and removed as it was unsuccessfully deployed and the needle successfully removed uneventfully. The prostatic urethra was wide open with resolution of obstructing mid to apical lobes. At this time, we passed an open-ended catheter on the right UO, and we performed the right ureteroscopy, diagnostic. A 0.35 Sensor wire was placed into the right upper pole. Subsequently, I was able to pass a 10-German dual-lumen access sheath to the level of the renal pelvis without significant issues or concerns. A second safety wire was placed into the right upper pole and we passed a 7.5 digital ureteroscope up without significant issues. The collecting system demonstrated no evidence of calyceal tumor. We surveyed the ureter, which demonstrated prominent ureter as above, there was no evidence of intraluminal mass or stricture in the area of concern on retrograde pyelogram. There was no evidence of ureteral stricture, mass of concern. I did place a 6 x 30 double-J ureteral stent on the right side. It appeared to be somewhat redundant and did migrate into the trigone near the prostatic urethra bladder or neck. We pushed the stent up into the bladder and placed an 18-German De Guzman catheter with 30 mL insufflated. He will be discharged with an indwelling De Guzman catheter, and I will recheck his PVR and voiding trial tomorrow. We will leave indwelling ureteral stent in situ tomorrow for a day and remove, as it appears to be migrating due to patulous right UO. The patient will be discharged with course of antibiotic therapy for 5 days, i.e., Levaquin 500 one p.o. daily x5 days, Azo p.r.n. Appointment tomorrow provided. Job ID: [id number] [facility]
== END 2019-06-10 12:05 | disposition home or self-care (01) ==
LOC: SDC 06:13
PROVIDERS: ATTEND Urology
PROC: 0T7D8DZ Dilation of Urethra with Intraluminal Device, Via Natural or Artificial Opening Endoscopic (ICD-10-PCS; principal; 2019-06-10)
PROC: 0TBB8ZX Excision of Bladder, Via Natural or Artificial Opening Endoscopic, Diagnostic (ICD-10-PCS; 2019-06-10)
PROC: 0T768DZ Dilation of Right Ureter with Intraluminal Device, Via Natural or Artificial Opening Endoscopic (ICD-10-PCS; 2019-06-10)
DX: N40.1 Benign prostatic hyperplasia with lower urinary tract symptoms (principal); R39.14 Feeling of incomplete bladder emptying; R33.8 Other retention of urine; N30.20 Other chronic cystitis without hematuria; N13.30 Unspecified hydronephrosis; M19.90 Unspecified osteoarthritis, unspecified site; K21.9 Gastro-esophageal reflux disease without esophagitis; E11.9 Type 2 diabetes mellitus without complications; E03.9 Hypothyroidism, unspecified; I10 Essential (primary) hypertension; F32.9 Major depressive disorder, single episode, unspecified; E78.00 Pure hypercholesterolemia, unspecified; N52.9 Male erectile dysfunction, unspecified; G47.33 Obstructive sleep apnea (adult) (pediatric); Z85.51 Personal history of malignant neoplasm of bladder; Z87.891 Personal history of nicotine dependence; Z79.4 Long term (current) use of insulin; Z79.82 Long term (current) use of aspirin; Z79.899 Other long term (current) drug therapy; Z99.89 Dependence on other enabling machines and devices
CPT/HCPCS: 52204; 52332; 74420; 80048; 82962; 88305; C1758; C1769; C1889; C9740; 36416; J1956; J2001; J2405; J2704; J3010

== ENCOUNTER 2019-09-20 19:19 | Inpatient (IN) | payer MEDICARE ==
[2019-09-20] MEDS ORDERED: Fentanyl 100 MCG/2 ML VIAL ONE ×2 (19:34→20:50)
[2019-09-20 20:03] LABS: #Basophils 0.1 thou/uL (0.0-0.2); #Eosinphils 0.3 thou/uL (0.0-0.7); #Lymphocytes 1.5 thou/uL (1.20-3.40); #Monocytes 0.5 thou/uL (0.11-0.59); #Neutrophils 8.2 thou/uL (1.40-6.50); %Basophils 0.7 % (0.0-1.0); %Lymphocytes 13.7 % (21.0-51.0); %Monocytes 4.7 % (0.0-10.0); %Neutrophils 77.9 % (42.0-75.0); Hemoglobin 14.1 g/dL (14.0-18.0); Mean Corpuscular HGB CONC 33.4 g/dL (32.0-36.0); Mean Corpuscular Hemoglobin 31.3 pg (27.0-31.0); Mean Corpuscular Volume 93.7 fL (78.0-98.0); Mean Platelet Volume 7.5 fL (7.4-10.4); Platelet Count 192 thou/uL (130-400); RBC Distribution Width 11.3 % (11.5-14.5); White Blood Cell (WBC) Count 10.6 thou/uL (4.8-10.8)
--- NOTE | 2019-09-20 20:07 | RAD ---
SINGLE VIEW OF THE CHEST: Comparison: 03-20-19 History: Fall with chest pain. FINDINGS: Single view of the chest shows a normal sized cardiomediastinal silhouette. There is no evidence of c onsolidation, mass, or pleural effusion. Degenerative changes are seen in the spine. IMPRESSION: No evidence of acute cardiopulmonary disease. POS: [facility]
--- NOTE | 2019-09-20 20:08 | RAD ---
TWO VIEWS LEFT HIP: Comparison: None History: Fall with left hip pain. FINDINGS: Two views of the left hip shows a fracture of the left femoral neck. No dislocation of the femoral he ad is seen. No degenerative change is seen in the left hip. IMPRESSION: Left femoral neck fracture. POS: [facility]
[2019-09-20] MEDS ORDERED: Ondansetron PF 4 MG/2 ML Vial ONE (20:09)
[2019-09-20 20:10] LABS: PTT 23.7 SEC (22.9-36.1); Prothrombin Time 13.2 sec (12.0-14.7)
[2019-09-20 20:23] LABS: ALT (SGPT) 21 U/L (8-55); AST (SGOT) 18 U/L (5-34); Albumin 3.6 g/dL (3.4-4.8); Alkaline Phosphatase 95 U/L (40-110); Anion Gap 15 mmol/L (10-20); BUN (Urea Nitrogen) 26 mg/dL (8.4-25.7); Bilirubin, Total 0.3 mg/dL (0.2-1.2); Calc. Creatinine Clearance 0 mL/min (70-130); Calcium 8.9 mg/dL (7.8-10.44); Carbon Dioxide 17 mmol/L (23-31); Chloride 100 mmol/L (98-107); Estimated GFR-MDRD 39; Globulin 3.3 g/dL (2.4-3.5); Glucose 176 mg/dL (83-110); Potassium 4.1 mmol/L (3.5-5.1); Protein, Total 6.9 g/dL (5.8-8.1); Sodium 128 mmol/L (136-145)
--- NOTE | 2019-09-20 20:28 | CT ---
CT BRAIN WITHOUT CONTRAST: Comparison: 03-20-19 History: Fall. Head trauma. Patient has cochlear implant. Technique: Multiple contiguous axial images were obtained in a CT of the brain without contrast. FINDINGS: There is streak artifact from the patient's cochlear implant limiting evaluation. There are scattered hypodensities in the subcortical and intraventricular white matter, likely secondary to small vessel ischemic disease. No large confluent infarction is seen. There is no evidence of hydrocephalus, intr acranial hemorrhage or extraaxial fluid collections. The calvarium and overlying soft tissues are unremarkable. The visualized paranasal sinuses and masto id air cells are well aerated. IMPRESSION: No evidence of acute intracranial abnormality. POS: [facility]
--- NOTE | 2019-09-20 20:30 | CT ---
CT CERVICAL SPINE WITHOUT CONTRAST: Comparison: None History: Fall with head trauma and neck pain. Technique: Multiple contiguous axial images were obtained in a CT of the cervical spine without contr ast. Sagittal and coronal reformats were performed. FINDINGS: Moderate degenerative changes are seen in the cervical spine. The vertebral bodies demonstrate normal height without acute fracture or subluxation. Grade 1 anterolisthesis of C2 on C3 is likely secondar y to degenerative change. The posterior facets are well aligned. Normal alignment of the skull base with the cervical spine is seen. IMPRESSION: Degenerative changes of the cervical spine without acute osseous abnormality. POS: [facility]
[2019-09-20] MEDS ORDERED: CEFAZOLIN 2 GM in Premix Bag 1 BAG IVPB SCH (22:15)
[2019-09-20] MEDS ORDERED: hydrALAZINE 20 MG/ML VIAL SLOW IVP PRN (23:49)
[2019-09-20] MEDS ORDERED: Morphine 2 MG/ML SYRINGE SLOW IVP PRN (23:49)
[2019-09-20] MEDS ORDERED: Ondansetron ODT 4 MG TAB PO PRN (23:49)
[2019-09-20] MEDS ORDERED: Dextrose 5% in Water 1,000 ML IV PRN (23:49)
[2019-09-20] MEDS ORDERED: Dextrose 50% Abboject 50 ML SYRINGE SLOW IVP PRN (23:49)
[2019-09-20] MEDS ORDERED: Morphine 4 MG/ML VIAL SLOW IVP PRN (23:49)
[2019-09-20] MEDS ORDERED: Ondansetron PF 4 MG/2 ML Vial IVP PRN (23:49)
[2019-09-21] MEDS: Sodium Chloride 0.9% 1,000 ML IV SCH ×2 (00:37→18:25)
--- NOTE | 2019-09-21 01:15 | HP ---
REQUESTING PHYSICIAN: Dr. Garduno. ATTENDING SURGEON: Dr. Wilson. CONSULTATIONS: Orthopedics, Dr. Lehman. HISTORY OF PRESENT ILLNESS: The patient is an 79-year-old man, who was at home walking when he missed a step, fell down, and landed on his left hip. There was no reported loss of consciousness. The patient was brought to the emergency department by ground EMS, where he underwent evaluation and examination and was noted to have a left femoral neck fracture, which time we were asked to evaluate the patient for admission and obtain Orthopedic consultation. Per ER report, the patient had a hypotensive episode at some point, but upon arrival in the ER, his systolic blood pressure has been anywhere from 120 to 150, and he has been nontachycardic. It is unclear if this was true or not. The history was difficult to obtain as to trying to reach family members, and then the was finally contacted, but she had difficulty remembering things. The majority was discovered to review of previous admissions. ALLERGIES: NONE. CURRENT MEDICATIONS: By review of previous H and P show, 1. Insulin. 2. Levothyroxine. 3. Metformin. 4. Finasteride. 5. Ramipril. 6. Azelastine. 7. Ellipta. 8. Omeprazole. 9. Glimepiride. 10. Aricept. 11. Aspirin. 12. Celexa. 13. Namenda. 14. Gabapentin. 15. Zetia. PAST MEDICAL HISTORY: Alzheimer's, gastroesophageal reflux disease, hypothyroidism, diverticulitis, BPH, type 2 diabetes, bladder cancer, chronic kidney disease. PAST SURGICAL HISTORY: Bladder tumor removal x2, right shoulder arthroscopic rotator cuff repair, TURP. SOCIAL HISTORY: The patient lives with his spouse. There is no reported history of drug or tobacco use. The patient reportedly drinks 1 to 2 times a week, which is reported to be one glass of scotch. REVIEW OF SYSTEMS: A 10-point review of systems is negative as otherwise stated. PHYSICAL EXAMINATION: VITAL SIGNS: Blood pressure is 157/85, heart rate 74, respirations 17, oxygen saturation is 97% on room air, and temperature is 97.9. GENERAL: The patient is resting comfortably in bed. He is awake. He does not have hearing aids, but was able to communicate somewhat with very loud voice questions, and was able to follow simple commands utilizing a loud voice. HEENT: Head is unremarkable. Normocephalic and atraumatic. Eyes, extraocular motion intact, though the patient did have difficulty following my fingers due to following my instructions. Ears are atraumatic without discharge. Nose is atraumatic without discharge. Oropharynx is clear. NECK: Nontender. Trachea is midline. No JVD. CHEST: Clear to auscultation with moderate inspiratory and expiratory effort. HEART: Regular rate and rhythm. ABDOMEN: Soft, flat, nontender. Active bowel sounds. PELVIS: Stable with tenderness to palpation to the left hip consistent with his fracture. EXTREMITIES: Neurovascularly intact x4. BACK: By report, atraumatic and nontender. LABORATORY FINDINGS: White blood cell count 10.6, hemoglobin 14.1, hematocrit 42.2, platelets 192. Sodium 128, potassium 4.1, chloride 100, CO2 17, BUN 26, creatinine 1.68, glucose 176. LFTs are unremarkable. Troponin is 0.015. PT 13, INR 1.0, PTT 24. RADIOGRAPHIC REPORTS: CT of the brain without contrast shows no evidence of acute intracranial abnormality. CT of the C-spine without contrast shows degenerative changes of the cervical spine without acute osseous abnormality. AP chest x-ray shows no evidence of acute cardiopulmonary disease. Views of the left hip show a left femoral neck fracture. ASSESSMENT AND PLAN: 1. Status post ground level fall. 2. Left femoral neck fracture. 3. Acute pain secondary to above. 4. History of chronic kidney disease, history of dementia, hypothyroid, depression, diverticulosis, gastroesophageal reflux disease, bladder cancer. 5. Chronic hyponatremia. PLAN: To admit the patient to the surgical floor. We will attempt to get a clear picture of his medications and medical history, and we will make him n.p.o. after midnight in preparation for possible surgery tomorrow. We will do pulmonary toilet, gastritis, mechanical VTE prophylaxis. Repeat labs in the morning. The patient was evaluated in the emergency department by Dr. Lehman. The evaluation, examination, laboratory, and radiographic findings were discussed with Dr. Wilson prior to this dictation. Job ID: [id number]
[2019-09-21 01:34] VITALS: BMI 29.1
[2019-09-21 02:11] LABS: Bacteria/HPF None Seen HPF (None Seen); Bilirubin Negative (Negative); Blood, Urine 2+ (Negative); Clarity Clear (Clear); Glucose, Urine (Dipstick) 300 mg/dL (Negative); Leukocyte 75 Leu/uL (Negative); Nitrite Negative (Negative); Protein, Urine (Dipstick) 100 mg/dL (Neg-Trace); RBC/HPF Greater than 50 HPF (0-3); Squamous Epithelial 0-3 HPF (0-3); Urobilinogen Normal mg/dL (Less than 2)
--- NOTE | 2019-09-21 02:14 | CON ---
DATE OF CONSULTATION: HISTORY OF THE PRESENT ILLNESS: Mr. Roman is an 79-year-old male presents today after a ground-level fall, was witnessed by his . The patient had multiple falls within the last month. She states that he is only a household ambulator walking just around the house and some short distance. 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 He has had a change in blood pressure medication. He is followed by Dr. Faust. His previous falls have been recently managed. He has also been followed by Urology for bladder cancer and recent treatment in June. The patient was getting a 2nd scotch per his 's report and had a ground-level fall. She states that he drinks daily. The patient is hard of hearing and difficult to get a full history, he has a history of dementia. History is through chart review and from what his could remember. She did not bring the medication list with him. PAST MEDICAL HISTORY: Peripheral neuropathy, Alzheimer's, diverticulitis, gastroesophageal reflux, reflux, dementia, diabetes type 2, chronic kidney disease, hypertension, and coronary artery disease. PAST SURGICAL HISTORY: Bilateral cochlear implants, hernia repair, bladder cancer with a tumor, recent treatment by Dr. Joce Copeland, an endoscopy, rotator cuff repair, transurethral resection in 2016 of bladder tumor. ALLERGIES: INCLUDE NO KNOWN DRUG ALLERGIES. SOCIAL HISTORY: The patient smoked up until 20 years ago per 's report. 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 Lives [facility]. He lives with his at home. The patient drinks daily, has no withdrawals. No illicit drug use. He is retired. REVIEW OF SYSTEMS: Noncontributory. PHYSICAL EXAMINATION: VITAL SIGNS: 157/85, 74, 17, 97.9, pain 8/10, 97% on room air. GENERAL: Alert and oriented male to person and place. Hard of hearing, sedated or somnolent from previous pain medications. MUSCULOSKELETAL: The patient has left lower extremity pain with internal and external rotation. No knee effusion. He has sensation diminished, but is able to flex and extend his toes. He has a palpable pulse. No open wounds in his left lower extremity. The patient's left hip x-ray showed a subcapital femoral neck fracture, displaced with negative CT head and neck. The patient has hemoglobin and hematocrit of 14 and 42. INR normal. Creatinine 1.68. The patient had a glucose of 176. IMPRESSION: 1. Left femoral neck fracture. 2. Diabetes. 3. Dementia. 4. Alcoholism. 5. Chronic kidney disease. 6. Previous bladder cancer with treatment. 7. Reflux. 8. Peripheral neuropathy. ASSESSMENT AND PLAN: The patient will be admitted per Trauma, will be on-call to the OR tomorrow. I discussed with his the patient's medical history. I discussed his mortality associated with this injury. I discussed that he likely would be a best candidate for hemiarthroplasty given his limited functional status. I discussed that in 5 years potentially that could be needed to be revised to a total hip arthroplasty if he continues to have pain, but given the limited functional ability of the patient at this time, I would recommend a hemiarthroplasty. I discussed the risks and benefits of surgery to include pain; scar; bleeding; infection; damage to vital structures, nerves, arteries, tendons; fracture below the level of the stem; blood clot; loss of life or limb. I discussed mortality associated with the injury. The patient's acknowledged understanding. The patient will be medically optimized as needed tomorrow for surgery. The patient's outcome is guarded given his multiple medical problems. Also discussed that his dementia would likely decline, would increase for a period of time after this surgery, and his acknowledged understanding. She understands he will be in the hospital for a period of time postoperatively. We will give him preoperative antibiotics and consent him for a left hip hemiarthroplasty. Job ID: [id number]
[2019-09-21 05:15] LABS: #Monocytes 0.5 thou/uL (0.11-0.59); %Basophils 0.3 % (0.0-1.0); %Eosinophils 0.2 % (0.0-10.0); %Lymphocytes 9.2 % (21.0-51.0); %Monocytes 4.3 % (0.0-10.0); %Neutrophils 85.9 % (42.0-75.0); Hemoglobin 13.4 g/dL (14.0-18.0); Mean Corpuscular HGB CONC 33.1 g/dL (32.0-36.0); Mean Corpuscular Hemoglobin 30.8 pg (27.0-31.0); Mean Corpuscular Volume 92.8 fL (78.0-98.0); Mean Platelet Volume 7.6 fL (7.4-10.4); Platelet Count 190 thou/uL (130-400); RBC Distribution Width 11.2 % (11.5-14.5); Red Blood Cell (RBC) Count 4.34 mill/uL (4.70-6.10); White Blood Cell (WBC) Count 10.5 thou/uL (4.8-10.8)
[2019-09-21 05:26] LABS: Anion Gap 14 mmol/L (10-20); BUN (Urea Nitrogen) 31 mg/dL (8.4-25.7); Calc. Creatinine Clearance 54 mL/min (70-130); Calcium 8.4 mg/dL (7.8-10.44); Carbon Dioxide 21 mmol/L (23-31); Chloride 99 mmol/L (98-107); Estimated GFR-MDRD 45; Glucose 207 mg/dL (83-110); Magnesium 1.4 mg/dL (1.6-2.6); Phosphorus 3.2 mg/dL (2.3-4.7); Potassium 4.8 mmol/L (3.5-5.1); Sodium 129 mmol/L (136-145)
[2019-09-21] MEDS ORDERED: Magnesium Sulfate 3 GM in Sodium Chloride 0.9% 250 ML 250 ML IVPB SCH (06:00)
--- NOTE | 2019-09-21 08:34 | CON ---
DATE OF CONSULTATION: 09/21/2019 REASON FOR EVALUATION: History of bladder cancer, recent urinary retention, currently admitted for hip fracture. HISTORY OF PRESENT ILLNESS: Mr. Roman is an 79-year-old male, previously followed by Dr. Singh, with history of bladder cancer and BPH, subsequently followed by Dr. Shae Guevara, who transferred and transitioned his care to al. The patient has history of incomplete emptying, prior history of PVR 600 to 700 mL with history of bladder cancer treated with multiple TURBTs. He also underwent laser prostatectomy by Dr. Guevara and had continued to have incomplete emptying. He subsequently underwent UroLift due to persistent obstructive component and has had complete emptying. He was recently seen in my office last week and underwent cystoscopy demonstrating good TUR, UroLift defect. However, his bladder volume was 728 mL. Cystoscopy demonstrated large capacious-looking bladder, likely chronic myogenic component and was advised regarding bladder rest due to significant PVR and had restarted his Flomax b.i.d. and Proscar, which he had been on in the past. He has had recurrent falls and admitted for a fall with a left hip fracture. Orthopedic evaluation is pending. His blood pressure is currently stable. PAST MEDICAL HISTORY: Includes diabetes, hearing loss, chronic sinusitis, reflux, depression, history of bladder cancer, history of BPH, history of Parkinson's, questionable dementia, impotence, chronic renal insufficiency, mild cognitive impairment. PAST SURGICAL HISTORY: Right arthroscopy in 2008; multiple TURBTs by Dr. Singh starting in 1971, 2013, and 2015. He underwent a volume study by Dr. Guevara in December 2016; cysto, TURBT, random bladder biopsy, mitomycin GreenLight vaporization, and circumcision by Dr. Guevara in January 2017. He has undergone prior cystoscopies in office in March 2019; subsequent volume study again on May 21, 2019, and June 10, 2019; cysto, UroLift, bladder biopsy, diagnostic right ureteroscopy, bilateral retrograde, subsequent stent pull in June 2019; recent cystoscopy in office demonstrating no bladder tumor, however, found to have repeat urinary retention, therefore, indwelling De Guzman catheter and restarted on his BPH medications. ALLERGIES: NO KNOWN DRUG ALLERGIES. SOCIAL HISTORY: He is a former smoker, quit in 1986. Lives with his . CURRENT MEDICATIONS: Include, 1. Ancef. 2. Pepcid. 3. Hydralazine. 4. Albuterol nebs. 5. Morphine. 6. Zofran. 7. Flomax 0.4 mg one p.o. daily, which I started this morning. 8. Proscar, restarted. PHYSICAL EXAMINATION: VITAL SIGNS: His vital signs are stable. He is not hypotensive. Temperature 97.7, pulse 86, respiratory rate 18, oxygen saturation 96%, blood pressure 140/80. I' s and O's demonstrating clear yellow urine. Catheter is resecured as it is not properly secured to his leg. GENERAL: The patient is in no acute distress. HEENT: Grossly unremarkable. HEART: Regular rate. LUNGS: Clear. ABDOMEN: Obese, protuberant. EXTREMITIES: No cyanosis, clubbing, or edema. MUSCULOSKELETAL: He does complain of left hip pain. I do not see any obvious ecchymosis or bruising. GENITOURINARY: De Guzman catheter resecured with StatLock x2. Meatus is grossly unremarkable. Testes are descended with no evidence of intratesticular mass. LABORATORY DATA: His recent cytology obtained in office is pending. His baseline creatinine is varied from 1.1 to 2.1, currently it is 1.49. White count 10, hemoglobin 13. Coagulation profile within normal limits. UA demonstrates no bacteria and 0 to 3 epithelials. PERTINENT IMAGING: On this admission, left hip fracture noted. CT of the head , no acute abnormality. CT of the spine shows DJD. Left hip x-ray shows femoral neck fracture. IMPRESSION AND PLAN: 1. Mr. Roman is currently admitted status post fall with history of recurrent falls in the past with left femoral fracture. 2. History of bladder cancer, status post transurethral resection of bladder tumour. Recent cystoscopy demonstrates no visible recurrence. Cytology is pending. 3. 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 Continue bladder rest with indwelling De Guzman catheter. Flomax 0.4 mg one p.o. daily restarted as well as Proscar. Orthopedic evaluation is pending. Do not remove De Guzman unless initiated by , as he was recently seen in my office with significant postvoid residual. Job ID: [id number] [facility]
[2019-09-21] MEDS ORDERED: Tamsulosin HCl 0.4 MG CAP PO SCH (09:00)
[2019-09-21] MEDS ORDERED: traMADol HCl 50 MG TAB PO PRN (09:31)
[2019-09-21] MEDS: Famotidine 20 MG TAB PO SCH (09:33)
[2019-09-21] MEDS: Tamsulosin HCl 0.4 MG CAP PO SCH (09:33)
[2019-09-21] MEDS: Finasteride 5 MG TAB PO SCH (09:33)
[2019-09-21] MEDS: Acetaminophen 500 MG TAB PO SCH ×3 (09:57→22:07)
[2019-09-21] MEDS ORDERED: Polyethylene Glycol 3350 17 GM Packet PO SCH (10:00)
[2019-09-21] MEDS ORDERED: Amlodipine 5 MG TAB PO SCH (10:00)
[2019-09-21] MEDS ORDERED: Gabapentin 100 MG CAP PO SCH (10:00)
[2019-09-21] MEDS ORDERED: Lidocaine 1% PF 5 ML VIAL ONE (10:24)
[2019-09-21] MEDS ORDERED: PROPOFOL 200 MG/20 ML VIAL ONE (10:24)
[2019-09-21] MEDS ORDERED: Rocuronium Bromide 10 MG/ML (10ML VIAL) ONE (10:24)
[2019-09-21] MEDS ORDERED: EPHEDRINE 25 MG/5 ML SYRINGE ONE (10:24)
[2019-09-21] MEDS ORDERED: Ondansetron PF 4 MG/2 ML Vial ONE (10:24)
[2019-09-21] MEDS ORDERED: Fentanyl 100 MCG/2 ML VIAL ONE ×2 (12:40→15:55)
[2019-09-21] MEDS ORDERED: SUGAMMADEX SODIUM 200 MG/2 ML VIAL ONE (14:06)
--- NOTE | 2019-09-21 16:19 | RAD ---
PORTABLE LEFT HIP ONE VIEW: HX: Left hip fracture FINDINGS/IMPRESSION: Interval post op changes of left hip arthroplasty is seen in good position and alignment since the pr evious day's exam. POS: MARTA
--- NOTE | 2019-09-21 16:23 | RAD ---
AP PELVIS: History: Left hip fracture. FINDINGS: Interval post op changes of left hip hemiarthroplasty is seen since the previous day's exam. POS: MARTA
--- NOTE | 2019-09-21 16:40 | PRG ---
DATE OF SERVICE: 09/21/2019 SUBJECTIVE: Mr. Roman is 79-year-old male status post ground level fall. He sustained left hip fracture. He also suffered from history of chronic kidney disease, hypothyroid, depression, bladder cancer, chronic hyponatremia, and dementia. The patient remained in surgical floor for pain control. The patient is on n.p.o. at midnight, nonpharmacological DVT prophylaxis, gastritis prophylaxis and pulmonary toilet. The patient voices the pain is still not controlled. The patient still experiences pain 8/10 with movement. He developed no fever or shortness of breath. The patient denies nausea or vomiting. Vital signs stable. OBJECTIVE: GENERAL: Currently, the patient lying in bed, comfortable, with no acute respiratory distress, in moderate severe distress due to pain from the left hip. GCS 15. VITAL SIGNS: Temperature 98.8, heart rate 95, respiratory rate 16, O2 saturation 95% on room air, blood pressure 165/98. LUNGS: Clear bilaterally. HEART: Regular rate and rhythm. ABDOMEN: Soft, nondistended. EXTREMITIES: Neurovascularly intact x4. Left hip range of motion limited due to pain. NEUROLOGIC: No focal neurologic deficits. LABORATORY DATA: White count 10.5, hemoglobin 13.4. Sodium 129, potassium 4.8, creatinine 1.49, magnesium 1.4, phosphorus 3.2. ASSESSMENT: 1. Status post ground level fall. 2. Left hip fracture. 3. Electrolyte abnormality including hyponatremia and hypomagnesia, history of hypothyroid, hypertension, chronic kidney disease, depression, diverticulosis, reflux and bladder cancer. PLAN: 1. Correct electrolyte abnormality. 2. Pain control. 3. Nonpharmacological DVT prophylaxis, gastritis prophylaxis and pulmonary toilet. 4. IV fluid for hydration. 5. The patient will go to the OR with Dr. Jansen today for left hip fracture fixation. The patient was seen and evaluated with Dr. Michelle on round this morning. Pain medication has been adjusted to achieve pain control. Job ID: [id number]
[2019-09-21] MEDS: Senokot S 8.6-50 MG TAB PO SCH (22:05)
[2019-09-21] MEDS: Gabapentin 100 MG CAP PO SCH (22:05)
[2019-09-21] MEDS: CEFAZOLIN 2 GM in Premix Bag 1 BAG IVPB SCH (22:05)
[2019-09-21] MEDS ORDERED: Insulin Regular 300 UNITS/3 ML VIAL SC PRN (22:57)
[2019-09-22] MEDS: Acetaminophen 500 MG TAB PO SCH ×4 (05:12→21:04)
[2019-09-22] MEDS: CEFAZOLIN 2 GM in Premix Bag 1 BAG IVPB SCH (05:12)
--- NOTE | 2019-09-22 05:18 | PRG ---
DATE OF SERVICE: SUBJECTIVE: The patient is currently on the surgical floor. He was admitted last night, status post ground level fall, in which he sustained a left femoral neck fracture. Today, he underwent open reduction and internal fixation of same, which he tolerated well. At the time of my visit, the patient was tolerating a clear liquid diet. He declined regular diet at this time. He reports his pain is controlled and he has not worked with Physical Therapy yet today. PHYSICAL EXAMINATION: VITAL SIGNS: Stable. The patient is afebrile. GENERAL: The patient is resting comfortably in bed. He is awake, alert, conversant, and appears to be his baseline with his history of dementia. LUNGS: Clear to auscultation with good inspiratory and expiratory effort. HEART: Regular rate and rhythm. ABDOMEN: Soft, nondistended with hypoactive bowel sounds. EXTREMITIES: Neurovascularly intact x4. Postop dressing is clean, dry, and intact. ASSESSMENT AND PLAN: 1. Status post ground level fall. 2. Status post open reduction and internal fixation of left femoral neck fracture. 3. Acute pain secondary to above. 4. History of chronic kidney disease, hyponatremia, dementia, hypothyroidism, depression, diverticulosis, and gastroesophageal reflux disease. 5. History of bladder cancer with recent history of high postvoid residuals. PLAN: Plan will be to continue supportive care. Encourage physical and occupational therapy. Advance his diet as tolerated. Move to oral pain medications when appropriate. The patient was also evaluated by Dr. Muñoz today as the patient is one of hers and she requested we continue his De Guzman catheter until she discontinues it. Job ID: [id number]
[2019-09-22] MEDS: Insulin Regular 300 UNITS/3 ML VIAL SC PRN ×3 (05:23→17:02)
[2019-09-22 06:43] LABS: Anion Gap 13 mmol/L (10-20); BUN (Urea Nitrogen) 32 mg/dL (8.4-25.7); Calc. Creatinine Clearance 42 mL/min (70-130); Calcium 7.7 mg/dL (7.8-10.44); Carbon Dioxide 20 mmol/L (23-31); Chloride 100 mmol/L (98-107); Estimated GFR-MDRD 34; Glucose 292 mg/dL (83-110); Magnesium 2.2 mg/dL (1.6-2.6); Phosphorus 3.4 mg/dL (2.3-4.7); Potassium 5.4 mmol/L (3.5-5.1); Sodium 128 mmol/L (136-145)
--- NOTE | 2019-09-22 07:34 | PRG ---
DATE OF SERVICE: 09/22/2019 SUBJECTIVE: The patient without complaints. OBJECTIVE: VITAL SIGNS: Stable. He is afebrile. I's and O's, 950 of urine output, mary clear. ABDOMEN: Soft, nontender, and nondistended. LABORATORY DATA: Creatinine is 1.9. Urine culture from September 14 is negative. IMPRESSION AND PLAN: 1. Mr. Roamn is an 79-year-old male postop day #1 status post left open reduction and internal fixation. 2. History of BPH, prior history of GreenLight prostatectomy, UroLift with improved PVR. However, recent office visit demonstrated elevated PVR, has indwelling De Guzman catheter. Continue BPH medications. Pending his clinical status with orthopedic surgery regarding disposition, we will consider voiding trial in the next few days. Do not remove De Guzman unless initiated by . 3. History of bladder cancer, in remission. Job ID: [id number]
[2019-09-22] MEDS: Finasteride 5 MG TAB PO SCH (08:05)
[2019-09-22] MEDS: Gabapentin 100 MG CAP PO SCH ×2 (08:06→20:58)
[2019-09-22] MEDS: Senokot S 8.6-50 MG TAB PO SCH ×3 (08:08→20:58)
[2019-09-22] MEDS: Famotidine 20 MG TAB PO SCH (08:08)
[2019-09-22] MEDS: Polyethylene Glycol 3350 17 GM Packet PO SCH (08:08)
[2019-09-22] MEDS: Tamsulosin HCl 0.4 MG CAP PO SCH (08:08)
--- NOTE | 2019-09-22 08:27 | OP ---
DATE OF PROCEDURE: 09/21/2019 PREOPERATIVE DIAGNOSIS: Left femoral neck fracture. POSTOPERATIVE DIAGNOSIS: Left femoral neck fracture. PROCEDURE PERFORMED: Left hip hemiarthroplasty. RIG MECHANIC: Severo Levy PA-C ANESTHESIA: The patient received a general endotracheal intubation. ESTIMATED BLOOD LOSS: 100 mL. TOURNIQUET TIME: None. IMPLANTS: [place] Accolade size 2, 6 standard sleeve, and 54 mm head. ANTIBIOTICS: Ancef 2 g. COMPLICATIONS: None. INDICATIONS FOR PROCEDURE: Mr. Roman is an 79-year-old male, who is a household ambulator, had a ground level fall. He was drinking at the time. The patient per is mainly a household ambulator. No preceding hip pain. Fell, broke his left femoral neck. I discussed with the patient and family the risks and benefits of left hip hemiarthroplasty to include pain, scar, bleeding, infection , damage to vital structures, fracture above or below the stem, continued pain despite surgical intervention, loss of life or limb. The patient and family understood the risks and benefits of the procedure and would like to proceed. DESCRIPTION OF PROCEDURE: Time-out was performed designating the patient's left lower extremity as the operative site based on site, consents, and marking. After time-out, the patient's left lower extremity was prepped and draped in sterile fashion. The patient was placed in the lateral decubitus position with bony prominences well padded and axillary roll in place. We made a lateral incision down through the skin, down to the IT band, and the IT band was split. Our split was too vertical and had to make a small resection rent to help with reducing the hip. During the case, we went down on the gluteus medius and minimus. We placed a Michel over the neck, came down on the gluteus minimus and medius structures, came down on the capsule, T'd the capsule, put a tie knot, which we had to extend in the neck to get the reduction. We removed the femoral head, traction and sized it to 54, broached up to size 6, difficult to reduce since we broached and placed size [address], again unable to reduce once we did our rent in our IT band posteriorly. Once we were catching the head, we reduced hip into place. Overall, had good alignment and on reduction, we removed all the implants, placed a size 6 #2 Accolate with a standard sleeve and a 54 mm head, reduced the hemiarthroplasty in place, closed the capsule with #2, closed the gluteus medius and minimus with #2, closed the IT band with #2 stratafix and 3.0 stratafix. POSTOPERATVIE: WBAT. Postoperative antibiotics. The patient will be weightbearing as tolerated, received 24 hours of perioperative antibiotics. Will need disposition to skilled. The patient will have DVT prophylaxis per Trauma. Job ID: [id number] [facility]
[2019-09-22] MEDS ORDERED: Amlodipine 5 MG TAB PO SCH (09:00)
[2019-09-22] MEDS: Heparin 5,000 UNITS/ML VIAL SC SCH ×2 (09:14→15:40)
--- NOTE | 2019-09-22 09:48 | PRG ---
DATE OF SERVICE: 09/22/2019 HISTORY OF PRESENT ILLNESS: Mr. Roman is a pleasant 79-year-old male with multiple medical problems, currently admitted to Trauma Service after a ground level fall. He had a left hip hemiarthroplasty performed yesterday. The patient is currently resting comfortably in bed. No acute events. OBJECTIVE: VITAL SIGNS: the patient is afebrile. GENERAL: Alert and oriented, in no acute distress. EXTREMITIES: Left lower extremity is neurovascular intact distally. The left hip hemiarthroplasty shows no signs of acute failure, stable implant. ASSESSMENT AND PLAN: The patient will be weightbearing as tolerated, needed to transfer to skilled, be followed in-house by Trauma. CBC in the morning. Job ID: [id number]
[2019-09-22] MEDS ORDERED: Sodium Chloride 0.9% 1,000 ML IV SCH (10:30)
--- NOTE | 2019-09-22 19:08 | PRG ---
DATE OF SERVICE: 09/22/2019 TIME: 5:46 p.m. I was called by the nursing staff, as he is known to have gross hematuria and traumatic De Guzman catheter removal. There is gross hematuria with dark thick urine in his tubing. Upon assessing the patient, the De Guzman catheter has grossly been pulled out with redundant tubing. De Guzman catheter deflated. His genital area was prepped with Betadine and a 20-[place] 3-way De Guzman catheter placed without significant issues. A 20 mL of sterile water insufflated, I did manually irrigate his bladder at the bedside with no obvious clots. However, he continues to have blood at the meatus consistent with urethral trauma. CBI tubing attached, continuous bladder irrigation initiated, titrated to clear. I did inform Dr. Lehman, orthopedic surgeon as he has recently had hip surgery on DVT prophylaxis with heparin t.i.d. Due to traumatic De Guzman catheter removal and gross hematuria, we will hold heparin and monitor him on CBI. If urine output subsequently clears off CBI, we will discuss with Primary Service regarding reinitiating his heparin. In the interim, bilateral TOR dhaliwal SCDs advised. Continue BPH medications. at bedside when this occurred, in which he pulled the De Guzman catheter out. Long discussion with nursing staff, in which the patient requires a 24 hour sitter for prevention of recurrent traumatic De Guzman catheter removal and gross hematuria. Increased risk of stricture, infection, and risk of DVT reviewed with patient and in detail. Job ID: [id number]
--- NOTE | 2019-09-22 20:27 | PRG ---
DATE OF SERVICE: 09/22/2019 SUBJECTIVE: The patient was seen on the surgical floor, awake, alert, in no distress. The patient is postop day #1 status post left hip repair. The patient had no overnight events. The patient is tolerating a diet and his pain is well controlled. Physical therapy is currently at bedside to work with the patient. OBJECTIVE: VITAL SIGNS: Temperature 98.8, pulse 85, blood pressure 140/75, and SpO2 of 95% on room air. GENERAL: Elderly male, awake and alert, in no distress. RESPIRATORY: Equal chest rise and fall. Respirations are even and nonlabored. ABDOMEN: Soft, nontender, and nondistended. EXTREMITIES: Left hip dressing is clean, dry, and intact. The patient moves all extremities and neurovascularly intact in all extremities. ASSESSMENT: 1. Status post ground level fall. 2. Status post open reduction and internal fixation of left femoral neck fracture. 3. Acute pain secondary to above. 4. History of chronic kidney disease, hyponatremia, dementia, hypothyroidism, depression, diverticulosis, and gastroesophageal reflux disease. 5. History of bladder cancer with recent history of high postvoid residuals. PLAN: Continue supportive care. Continue pain regimen. We will change the patient's diet to a renal high-protein diet. Continue physical and occupational therapy. We will keep De Guzman in place per Urology. We will start the patient on subcu heparin for VTE prophylaxis. We will continue free water restriction 1 L a day. The patient may have unlimited Gatorade. We will continue 1 L of normal saline at 120 an hour. We will discontinue after one bag as the patient's renal function has worsened. Plan was discussed with Dr. Michelle and the patient, who agrees. Job ID: [id number]
[2019-09-22] MEDS: Ezetimibe 10 MG TAB PO SCH (20:56)
[2019-09-22] MEDS: Ferrous Sulfate 325 MG TAB PO SCH (20:57)
[2019-09-22] MEDS ORDERED: Dextrose 5% in Water 1,000 ML IV PRN (22:55)
[2019-09-22] MEDS ORDERED: Dextrose 50% Abboject 50 ML SYRINGE SLOW IVP PRN (22:55)
[2019-09-22] MEDS ORDERED: Melatonin 3 MG TAB PO SCH (23:15)
--- NOTE | 2019-09-23 02:00 | PRG ---
DATE OF SERVICE: 09/23/2019 SUBJECTIVE: The patient was seen this evening during rounds. He was awake and alert with no signs of acute distress. He was slightly confused. The nurse reported that he was picking at everything. There is a sitter at the bedside so he does not pull on his De Guzman. OBJECTIVE: VITAL SIGNS: Temperature 99.5, pulse 96, respirations 16, oxygen saturation 95% on 1 L nasal cannula, blood pressure 148/76. GENERAL: Well-appearing elderly male, sitting up in bed, with no signs of acute distress. PULMONARY: Equal chest rise and fall. No signs of acute respiratory distress. CARDIAC: Regular rate and rhythm. ASSESSMENT: 1. Status post ground level fall. 2. Left hip fracture, status post repair. 3. Acute kidney injury on chronic kidney disease, worsening. 4. Traumatic De Guzman, status post replacement by Urology. 5. History of bladder cancer, chronic kidney disease, dementia, Alzheimer's, gastroesophageal reflux disease, hypothyroidism, BPH, and diverticulitis. PLAN: Continue current diet. Continue 1 L free water restrict. Continue physical therapy. Continue De Guzman catheter with CBI per the recommendations of Urology. We will increase the patient's sliding scale to aggressive as his blood glucose levels have been poorly controlled. We will also add melatonin scheduled at night as the patient is becoming delirious. Add a bowel regimen. Complete med rec. Job ID: [id number]
[2019-09-23] MEDS: Acetaminophen 500 MG TAB PO SCH ×4 (04:38→21:55)
[2019-09-23 05:42] LABS: Band 6 % (5-11); Eosinophils 5 % (0-10); Lymphocytes 15 % (21-51); MDiff Complete? YES; Mean Corpuscular HGB CONC 33.6 g/dL (32.0-36.0); Mean Corpuscular Hemoglobin 31.4 pg (27.0-31.0); Mean Corpuscular Volume 93.6 fL (78.0-98.0); Mean Platelet Volume 7.8 fL (7.4-10.4); Monocytes 9 % (0-10); Neutrophil 65 % (42-75); Platelet Count 139 thou/uL (130-400); Platelet Morphology Comment Appears Adequate; RBC Distribution Width 11.2 % (11.5-14.5); Red Blood Cell (RBC) Count 3.17 mill/uL (4.70-6.10); White Blood Cell (WBC) Count 7.9 thou/uL (4.8-10.8)
[2019-09-23 05:56] LABS: Anion Gap 11 mmol/L (10-20); BUN (Urea Nitrogen) 26 mg/dL (8.4-25.7); Calc. Creatinine Clearance 52 mL/min (70-130); Calcium 7.9 mg/dL (7.8-10.44); Carbon Dioxide 21 mmol/L (23-31); Chloride 101 mmol/L (98-107); Estimated GFR-MDRD 44; Glucose 241 mg/dL (83-110); Magnesium 1.9 mg/dL (1.6-2.6); Phosphorus 2.8 mg/dL (2.3-4.7); Potassium 4.1 mmol/L (3.5-5.1); Sodium 129 mmol/L (136-145)
[2019-09-23] MEDS: Insulin Regular 300 UNITS/3 ML VIAL SC PRN ×4 (06:33→20:33)
[2019-09-23] MEDS: Levothyroxine Sodium 100 MCG TAB PO SCH (06:33)
--- NOTE | 2019-09-23 08:02 | PRG ---
DATE OF SERVICE: 09/23/2019 SUBJECTIVE: The patient easily arousable. No acute distress. OBJECTIVE: VITAL SIGNS: Stable. T-max of 99.5. I's and O's; 1810 in and 2675. One bowel movement. ABDOMEN: Soft, nontender, and nondistended. : There is some old blood at the meatus consistent with traumatic De Guzman catheter removal yesterday. CBI going at a very slow rate, clear. I did hold the CBI to monitor his urine output. PERTINENT LABORATORY DATA: White count 7.9, hemoglobin 10, and platelets 139. Creatinine 1.5. His heparin has been held as I was called in last night as he pulled out his De Guzman catheter with gross hematuria with clot. IMPRESSION AND PLAN: 1. An 79-year-old male, status post fall, postop day #2, status post left open reduction and internal fixation of his left hip. 2. History of BPH, prior history of GreenLight prostatectomy, status post UroLift with improved PVR, however, recently had elevated PVR in our office, likely has a myogenic component. Indwelling De Guzman catheter was placed last week in my office , currently admitted due to above. 3. Traumatic De Guzman catheter removal with gross hematuria. 4. History of bladder cancer, in remission. 5. History of alcohol abuse. RECOMMENDATIONS: CBI will be held this morning, I informed the nurse that he may resume previous heparin dose, however IF gross hematuria recurs or blood at the meatus of concern, heparin is to be held, and CBI will be restarted. As his urine output is relatively clear this morning on low rate CBI, hopefully he can tolerate hep. I was anticipating a voiding trial in the next day or 2, however, as he pulled his De Guzman catheter out, with urethral trauma, De Guzman catheter will remain in situ for another week. This will not prevent him from going to rehab; however, facility has to be aware that he will have an indwelling De Guzman catheter for least a week for a voiding trial in my office sometime next week. Continue BPH medications. Job ID: [id number] [facility]
[2019-09-23] MEDS ORDERED: Tamsulosin HCl 0.4 MG CAP PO SCH (09:00)
[2019-09-23] MEDS ORDERED: Finasteride 5 MG TAB PO SCH (09:00)
[2019-09-23] MEDS ORDERED: Polyethylene Glycol 3350 17 GM Packet PO SCH (09:00)
[2019-09-23] MEDS ORDERED: Morphine 2 MG/ML SYRINGE SLOW IVP SCH (10:00)
[2019-09-23] MEDS ORDERED: Furosemide 20 MG/2 ML VIAL SLOW IVP SCH (10:00)
[2019-09-23] MEDS: Icosapent Ethyl 1 GM CAPSULE PO SCH ×2 (10:17→17:23)
[2019-09-23] MEDS: Citalopram 20 MG TAB PO SCH (10:17)
[2019-09-23] MEDS: Polyethylene Glycol 3350 17 GM Packet PO SCH (10:17)
[2019-09-23] MEDS: Ramipril 5 MG CAP PO SCH (10:18)
[2019-09-23] MEDS: Senokot S 8.6-50 MG TAB PO SCH ×3 (10:18→20:34)
[2019-09-23] MEDS: Heparin 5,000 UNITS/ML VIAL SC SCH ×3 (10:18→20:35)
[2019-09-23] MEDS: Amlodipine 5 MG TAB PO SCH (10:19)
[2019-09-23] MEDS: Tamsulosin HCl 0.4 MG CAP PO SCH (10:19)
[2019-09-23] MEDS: Ferrous Sulfate 325 MG TAB PO SCH ×2 (10:19→20:35)
[2019-09-23] MEDS: Gabapentin 100 MG CAP PO SCH ×2 (10:19→20:34)
[2019-09-23] MEDS: Finasteride 5 MG TAB PO SCH (10:20)
[2019-09-23] MEDS: traMADol HCl 50 MG TAB PO SCH ×2 (10:24→21:54)
--- NOTE | 2019-09-23 14:28 | EKG ---
Test Reason : EMERGENCY Blood Pressure : / mmHG Vent. Rate : 067 BPM Atrial Rate : 067 BPM P-R Int : 246 ms QRS Dur : 084 ms QT Int : 454 ms P-R-T Axes : 112 000 010 degrees QTc Int : 479 ms Sinus rhythm with 1st degree A-V block ST elevation, consider early repolarization, pericarditis, or injury Abnormal ECG Confirmed by LEXX BARRIENTOS DO ([id number]), avid editor GENE HOUSTON ([id number]) on 09/23/2019 2:27:53 PM Referred By: Confirmed By:LEXX BARRIENTOS DO
--- NOTE | 2019-09-23 15:04 | PRG ---
DATE OF SERVICE: 09/23/2019 SUBJECTIVE: The patient was seen during morning rounds. Awake, alert, mildly tachypneic after working with Physical Therapy. The patient had just returned to bed by Physical Therapy. The patient had pursed lip breathing and mildly tachypneic. The patient also reported moderate amount of pain with physical therapy. The patient continues to have De Guzman catheter in place with clear yellow urine. No obvious hematuria. Continuous bladder irrigation was stopped earlier this morning by Urology. OBJECTIVE: VITAL SIGNS: Blood pressure 111/73, pulse 88, temperature 99, SpO2 of 98% on 1 L nasal cannula, respirations 14. GENERAL: Elderly male, in moderate distress due to pain and shortness of breath after physical therapy. HEENT: Head is atraumatic and normocephalic. RESPIRATORY: Equal chest rise and fall. Diminished breath sounds in the bases with mild rales. CARDIAC: Regular rate. Regular rhythm. No murmur. ABDOMEN: Soft, nontender, nondistended. EXTREMITIES: Left hip dressing is clean, dry, and intact. No pedal edema. Neurovascularly intact in all extremities. ASSESSMENT: 1. Status post ground level fall. 2. Status post open reduction and internal fixation of left femoral neck fracture. 3. Acute pain secondary to above. 4. Gross hematuria, resolved. 5. History of chronic kidney disease, hyponatremia, dementia, hypothyroidism, depression, diverticulitis, gastroesophageal reflux disease, and history of bladder cancer with recent history of high postvoid residuals. PLAN: Continue supportive care. Increase pain regimen as the patient is having a moderate amount of pain. Continue diet as tolerated. Continue De Guzman catheter per Urology. We will give the patient a one time dose of Lasix due to shortness of breath and rales. Continue physical and occupational therapy. Continue subcu heparin for VTE prophylaxis. The patient is pending placement to inpatient rehab versus long term facility. The patient was examined by Dr. Michelle during morning rounds. Job ID: [id number]
[2019-09-23] MEDS: Melatonin 3 MG TAB PO SCH (20:34)
[2019-09-23] MEDS: Ezetimibe 10 MG TAB PO SCH (20:34)
--- NOTE | 2019-09-24 00:58 | PRG ---
DATE OF SERVICE: 09/23/2019 SUBJECTIVE: The patient was seen this evening. Nursing called to report the patient was tachycardic and O2 sats had dropped to 88% on room air. At the time of my evaluation, the patient was asleep. He was put on 2 L nasal cannula. Vital signs were reassessed, which demonstrated a SpO2 of 95% on 2 L nasal cannula, heart rate in the hospital improved to 105. The patient is still hemodynamically stable. OBJECTIVE: VITAL SIGNS: Temperature 98.7, pulse 105, respirations 20, oxygen saturation 96% on 2 L nasal cannula, blood pressure 105/64. GENERAL: Well-appearing elderly male, sitting up in bed with no signs of acute distress. PULMONARY: Equal chest rise and fall. Clear breath sounds bilaterally. No signs of acute respiratory distress. ASSESSMENT: 1. Status post ground level fall. 2. Left hip fracture, status post repair. 3. Traumatic De Guzman. 4. Acute kidney injury on chronic kidney disease. 5. History of bladder cancer, chronic kidney disease, dementia, Alzheimer's, gastroesophageal reflux disease, diabetes, BPH, diverticulitis, hypothyroidism. PLAN: Continue current diet and pain regimen. The patient having all his meals. The patient did receive Lasix earlier today and he has negative 675. We will closely continue to monitor his vital signs if the patient becomes tachycardic or is requiring additional oxygen or blood pressure decreases further. We will complete a full workup including labs, EKG, chest x-ray in order to determine if further intervention is needed. For now, we will continue to monitor his vitals. I have discussed this with the nursing staff. The patient is pending placement and is ready for discharge. Job ID: [id number]
[2019-09-24] MEDS: Acetaminophen 500 MG TAB PO SCH ×4 (03:57→22:28)
[2019-09-24] MEDS: Levothyroxine Sodium 100 MCG TAB PO SCH (06:10)
[2019-09-24] MEDS: Insulin Regular 300 UNITS/3 ML VIAL SC PRN ×4 (06:10→20:21)
[2019-09-24 06:13] LABS: #Eosinphils 0.5 thou/uL (0.0-0.7); #Monocytes 0.6 thou/uL (0.11-0.59); #Neutrophils 5.7 thou/uL (1.40-6.50); %Basophils 0.3 % (0.0-1.0); %Eosinophils 5.4 % (0.0-10.0); %Lymphocytes 22.6 % (21.0-51.0); %Monocytes 6.9 % (0.0-10.0); %Neutrophils 64.8 % (42.0-75.0); Hemoglobin 9.9 g/dL (14.0-18.0); Mean Corpuscular Hemoglobin 30.8 pg (27.0-31.0); Mean Corpuscular Volume 93.4 fL (78.0-98.0); Mean Platelet Volume 8.1 fL (7.4-10.4); Platelet Count 165 thou/uL (130-400); RBC Distribution Width 11.4 % (11.5-14.5); Red Blood Cell (RBC) Count 3.21 mill/uL (4.70-6.10); White Blood Cell (WBC) Count 8.7 thou/uL (4.8-10.8)
[2019-09-24 06:37] LABS: Anion Gap 12 mmol/L (10-20); BUN (Urea Nitrogen) 30 mg/dL (8.4-25.7); Calc. Creatinine Clearance 46 mL/min (70-130); Calcium 8.3 mg/dL (7.8-10.44); Carbon Dioxide 22 mmol/L (23-31); Chloride 99 mmol/L (98-107); Estimated GFR-MDRD 38; Glucose 175 mg/dL (83-110); Phosphorus 3.5 mg/dL (2.3-4.7); Potassium 4.2 mmol/L (3.5-5.1); Sodium 129 mmol/L (136-145)
--- NOTE | 2019-09-24 08:39 | PRG ---
DATE OF SERVICE: 09/24/2019 SUBJECTIVE: patient groggy, arousable. Sitter at bedside. Per sitter, patient frequently fusses with his Diaz catheter, grabbing his genitalia/ diaz. Diaz catheter adequately secured and taped with diaper inplace heparin was started again yesterday, CBI has been held, urine output remains clear. Tolerating anticoagulation for DVT prophylaxis. OBJECTIVE: VITAL SIGNS: Stable. He is 99, 970 in, 1550 out. ABDOMEN: Soft. No rigidity. No rebound. GENITOURINARY: Diaz catheter is adequately secured and taped, CBI port is plugged. PERTINENT LABORATORY DATA: White count 8, hemoglobin 9.9, platelet 136. BMP profile: Sodium is 129, creatinine is 1.72, which is near his baseline. IMPRESSION AND PLAN: 1. 79-year-old male, status post fall, postop day #3, status post left open reduction and internal fixation. 2. benign prostatic hypertrophy, status post GreenLight prostatectomy in the remote past, status post UroLift with initial improvement of PVR, however, recent recurrence of elevated PVR in our office, likely due to myogenic component. Indwelling Diaz catheter was placed last week in my office after surveillance cystoscopy for his bladder cancer, which has remained negative for recurrence. Cytology neg. 3. Traumatic Diaz catheter removal on this admission with gross hematuria. Diaz catheter replaced, now off continuous bladder irrigation, tolerating heparin with clear urine. 4. History of bladder cancer, in remission. 5. History of alcohol abuse. 6. Hyponatremia. 7. Labile mental status RECOMMENDATION: Due to mental status , he requires a sitter to prevent indwelling Diaz catheter to be removed again. This will be challenging for placement. He is not a candidate for CIC, due to recent urethral trauma . recommend evaluation of hyponatremia, monitor patient for DT as he has a history of alcohol abuse. Consider hospitalist, Renal consult for hyponatremia, as it may be contributing to his confusion. Informed primary service, trauma : concern regarding patient's placement as he requires sitter. He is at a high risk for recurrent catheter trauma. Patient's is not a reliable sitter, as he pulled a Diaz catheter with her present in the room.. indwelling Diaz catheter has to stay due to recent urethral trauma. Outpatient appointment with me next week for a voiding trial Continue his BPH medications. Discussed with case management regarding placement requiring sitter. DR. Copeland covering me tomorrow, and will subsequently signed out to on-call as I will be off service until Saturday. Job ID: [id number] [facility]
[2019-09-24] MEDS: Icosapent Ethyl 1 GM CAPSULE PO SCH ×2 (10:43→17:06)
[2019-09-24] MEDS: Heparin 5,000 UNITS/ML VIAL SC SCH ×3 (10:44→20:21)
[2019-09-24] MEDS: Citalopram 20 MG TAB PO SCH (10:44)
[2019-09-24] MEDS: Senokot S 8.6-50 MG TAB PO SCH ×2 (10:44→20:20)
[2019-09-24] MEDS: Tamsulosin HCl 0.4 MG CAP PO SCH (10:45)
[2019-09-24] MEDS: Ferrous Sulfate 325 MG TAB PO SCH ×2 (10:46→20:20)
[2019-09-24] MEDS: Gabapentin 100 MG CAP PO SCH ×2 (10:46→20:20)
[2019-09-24] MEDS: Amlodipine 5 MG TAB PO SCH (10:46)
[2019-09-24] MEDS: Sodium Chloride 1 GM TAB PO SCH ×2 (10:46→20:20)
[2019-09-24] MEDS: Polyethylene Glycol 3350 17 GM Packet PO SCH (10:47)
[2019-09-24] MEDS: Finasteride 5 MG TAB PO SCH (10:47)
[2019-09-24] MEDS: Ramipril 5 MG CAP PO SCH (10:48)
[2019-09-24] MEDS: traMADol HCl 50 MG TAB PO PRN (14:41)
--- NOTE | 2019-09-24 20:19 | PRG ---
DATE OF SERVICE: 09/24/2019 SUBJECTIVE: The patient remains on the surgical floor, awake, alert, in no distress. The patient was seen during morning rounds with Dr. Michelle. The patient had some low urinary output overnight. The patient's De Guzman catheter remains in place without any hematuria. The patient continues to have a sitter at bedside at all times due to his dementia and risk of pulling out his catheter. The patient is still requiring oxygen via nasal cannula. OBJECTIVE: VITAL SIGNS: Temperature 98.8, pulse 92, respirations 16, SpO2 of 94% on 2 L nasal cannula, and blood pressure 104/68. GENERAL: Well-appearing elderly male, awake, alert, in no distress. HEENT: Head is atraumatic and normocephalic. PULMONARY: Equal chest rise and fall, bilateral breath sounds clear, no respiratory distress. ABDOMEN: Soft, nontender, nondistended. EXTREMITIES: Moves all extremities. Left hip dressing is clean, dry, and intact, neurovascularly intact in all extremities. LABORATORY DATA: WBC 8.7, RBC 3.21, hemoglobin 9.9, hematocrit 30.0, and platelets 165. Sodium 129, potassium 4.2, chloride 99, BUN 30, creatinine 1.72, estimated GFR 38, glucose 175, calcium 8.3, phosphorus 3.5, and magnesium 2.0. BNP 55.2. IMPRESSION: 1. Status post ground level fall. 2. Left hip fracture, status post repair. 3. Traumatic De Guzman. 4. Acute on chronic kidney disease. 5. History of bladder cancer, chronic kidney disease, dementia, Alzheimer's, gastroesophageal reflux disease, diabetes, benign prostatic hyperplasia, diverticulitis, and hypothyroidism. PLAN: Continue current diet and pain regimen. Continue to have Physical and Occupational Therapy work with patient. Continue to monitor urinary output. The patient was accepted to [facility]. There is no sitter available. Dr. Muñoz with Urology and Dr. Michelle feel that it is important that patient have a sitter at all times as he is at risk of pulling out his De Guzman, causing additional trauma. Case Management plans to work with facility to see if a sitter can be obtained, so the patient can go to [facility]. The patient was examined by Dr. Michelle. Job ID: [id number] [facility]
[2019-09-24] MEDS: Melatonin 3 MG TAB PO SCH (20:20)
[2019-09-24] MEDS: Ezetimibe 10 MG TAB PO SCH (20:20)
--- NOTE | 2019-09-25 01:44 | PRG ---
DATE OF SERVICE: 09/24/2019 SUBJECTIVE: Patient was seen this evening during rounds, lying in bed, asleep, with no signs of acute distress. Nursing reported no acute events. OBJECTIVE: VITAL SIGNS: Temperature 99, pulse 96, respirations 16, oxygen saturation 96% on 1 L nasal cannula, blood pressure 124/75. GENERAL: Well-appearing elderly male, lying in bed, asleep, in no signs of acute distress. PULMONARY: Equal chest rise and fall. No signs of acute respiratory distress. ASSESSMENT: 1. Status post ground level fall. 2. Left hip fracture, status post repair. 3. Traumatic De Guzman with hematuria, improving. 4. Acute kidney injury on chronic kidney disease. 5. History of bladder cancer, chronic kidney disease, dementia, Alzheimer's, gastroesophageal reflux disease, diabetes, BPH, diverticulitis, hypothyroidism. 6. Acute hyponatremia. PLAN: Continue current diet and pain regimen. Continue physical and occupational therapy. Continue De Guzman with sitter at bedside. The patient is started on sodium b.i.d. today. Repeat blood work this evening. If the patient's glucose control continues to be poor, we will further address his insulin management. Job ID: [id number]
[2019-09-25] MEDS: Acetaminophen 500 MG TAB PO SCH ×4 (04:08→21:47)
[2019-09-25] MEDS: Levothyroxine Sodium 100 MCG TAB PO SCH (05:49)
[2019-09-25] MEDS: Insulin Regular 300 UNITS/3 ML VIAL SC PRN ×4 (05:51→20:04)
[2019-09-25] MEDS: Polyethylene Glycol 3350 17 GM Packet PO SCH (08:55)
[2019-09-25] MEDS: Ramipril 5 MG CAP PO SCH (08:56)
[2019-09-25] MEDS: Heparin 5,000 UNITS/ML VIAL SC SCH ×3 (08:56→20:02)
[2019-09-25] MEDS: Amlodipine 5 MG TAB PO SCH (08:57)
[2019-09-25] MEDS: Ferrous Sulfate 325 MG TAB PO SCH ×2 (08:57→20:06)
[2019-09-25] MEDS: Senokot S 8.6-50 MG TAB PO SCH ×2 (08:57→20:06)
[2019-09-25] MEDS: Tamsulosin HCl 0.4 MG CAP PO SCH (08:58)
[2019-09-25] MEDS: Finasteride 5 MG TAB PO SCH (08:58)
[2019-09-25] MEDS: Gabapentin 100 MG CAP PO SCH ×2 (08:58→20:06)
[2019-09-25] MEDS: Citalopram 20 MG TAB PO SCH (08:58)
[2019-09-25] MEDS: Icosapent Ethyl 1 GM CAPSULE PO SCH ×2 (09:15→17:47)
[2019-09-25] MEDS: Sodium Chloride 1 GM TAB PO SCH ×2 (09:16→20:06)
[2019-09-25 09:17] LABS: Anion Gap 11 mmol/L (10-20); BUN (Urea Nitrogen) 29 mg/dL (8.4-25.7); Calc. Creatinine Clearance 49 mL/min (70-130); Calcium 8.3 mg/dL (7.8-10.44); Carbon Dioxide 22 mmol/L (23-31); Chloride 99 mmol/L (98-107); Estimated GFR-MDRD 41; Glucose 249 mg/dL (83-110); Potassium 4.2 mmol/L (3.5-5.1); Sodium 128 mmol/L (136-145)
--- NOTE | 2019-09-25 15:34 | PRG ---
DATE OF SERVICE: 09/25/2019 SUBJECTIVE: The patient was seen during morning rounds with Dr. Michelle. The patient was awake, alert, sitting up in the hospital chair. The patient had no overnight events. The patient continues to have a sitter at bedside. The patient continues to tolerate a regular diet. The pain is well controlled. OBJECTIVE: VITAL SIGNS: Blood pressure 140/75, temperature 97.8, pulse 82, SpO2 93% on room air, respirations 14. GENERAL: Elderly male, sitting up in hospital chair, awake, alert, in no distress. PULMONARY: Equal chest rise and fall, bilateral breath sounds clear. ABDOMEN: Soft, nontender, nondistended. : A De Guzman catheter remains in place. EXTREMITIES: Moves all extremities. Left hip dressing is clean, dry, and intact, neurovascularly intact x4. LABORATORY DATA: Sodium 128, potassium 4.2, chloride 99, carbon dioxide 22, BUN 29, creatinine 1.63, estimated GFR 41, glucose 249. IMPRESSION: 1. Status post ground level fall. 2. Left hip fracture, status post repair. 3. Traumatic De Guzman. 4. Acute on chronic kidney disease, improving. 5. Chronic hyponatremia. 6. Hyperglycemia. 7. History of bladder cancer, chronic kidney disease, dementia, Alzheimer's, gastroesophageal reflux disease, diabetes mellitus type 2, benign prostatic hyperplasia, diverticulitis, and hypothyroidism. PLAN: Continue current diet and pain med regimen. Continue physical and occupational therapy. Continue to monitor urinary output. De Guzman catheter will remain in place per Urology and a sitter at bedside at all times as the patient previously pulled on his De Guzman catheter causing trauma. The patient has been accepted to [facility], but is unable to have a sitter while there. We will continue the patient on salt tablets 1 g b.i.d. for hyponatremia and continue 1 L free water restriction. We will restart the patient's home insulin as he remains hyperglycemic on an aggressive sliding scale. Case management is working to see if the patient can possibly go to inpatient rehab with a sitter, if not the patient will remain in the hospital with a sitter until followup next with Urology. The patient was examined by Dr. Michelle during morning rounds. The plan was discussed with the patient and . Job ID: [id number] [facility]
[2019-09-25] MEDS: Ezetimibe 10 MG TAB PO SCH (20:06)
[2019-09-25] MEDS: Melatonin 3 MG TAB PO SCH (20:06)
[2019-09-25] MEDS: traMADol HCl 50 MG TAB PO PRN (21:47)
--- NOTE | 2019-09-26 02:07 | PRG ---
DATE OF SERVICE: 09/25/2019 SUBJECTIVE: The patient was seen this evening, lying in bed, asleep, with no signs of acute distress. Nursing reported no acute events. OBJECTIVE: VITAL SIGNS: Temperature 99.6, pulse 94, respirations 20, oxygen saturation 94% on 1 L nasal cannula, and blood pressure 139/72. GENERAL: Well-appearing elderly male, lying in bed, asleep, with no signs of acute distress. PULMONARY: Equal chest rise and fall. No signs of acute respiratory distress. ASSESSMENT: 1. Status post ground level fall. 2. Left hip fracture, status post repair. 3. Gross hematuria secondary to traumatic De Gumzan placement. 4. Acute kidney injury on chronic kidney disease, improving. 5. History of bladder cancer, chronic kidney disease, dementia, Alzheimer's, gastroesophageal reflux disease, diabetes, benign prostatic hyperplasia, diverticulitis, and hypothyroidism. 6. Acute hyponatremia, worsening. PLAN: Continue current diet and pain regimen. Continue physical and occupational therapy. I did speak to nurse about 1 L free water restriction. I do not believe that they were counting ice tea in that equation. I told them to encourage Gatorade over water. We will re-evaluate blood work in the morning. Job ID: [id number]
[2019-09-26] MEDS: Acetaminophen 500 MG TAB PO SCH ×4 (04:40→22:26)
[2019-09-26] MEDS: Levothyroxine Sodium 100 MCG TAB PO SCH (05:26)
[2019-09-26] MEDS: Insulin Regular 300 UNITS/3 ML VIAL SC PRN ×4 (05:44→20:17)
[2019-09-26 05:56] LABS: Anion Gap 14 mmol/L (10-20); BUN (Urea Nitrogen) 24 mg/dL (8.4-25.7); Calc. Creatinine Clearance 57 mL/min (70-130); Calcium 8.7 mg/dL (7.8-10.44); Carbon Dioxide 22 mmol/L (23-31); Chloride 99 mmol/L (98-107); Estimated GFR-MDRD 49; Glucose 149 mg/dL (83-110); Magnesium 1.9 mg/dL (1.6-2.6); Phosphorus 3.7 mg/dL (2.3-4.7); Potassium 4.5 mmol/L (3.5-5.1); Sodium 130 mmol/L (136-145)
[2019-09-26] MEDS: Insulin Glargine 40 UNITS in Pre-Filled Syringe 1 EACH SC SCH (08:54)
[2019-09-26] MEDS: Icosapent Ethyl 1 GM CAPSULE PO SCH ×2 (08:55→17:49)
[2019-09-26] MEDS: Finasteride 5 MG TAB PO SCH (08:56)
[2019-09-26] MEDS: Polyethylene Glycol 3350 17 GM Packet PO SCH (08:56)
[2019-09-26] MEDS: Sodium Chloride 1 GM TAB PO SCH ×2 (08:56→19:34)
[2019-09-26] MEDS: Amlodipine 5 MG TAB PO SCH (08:57)
[2019-09-26] MEDS: Senokot S 8.6-50 MG TAB PO SCH ×2 (08:57→19:34)
[2019-09-26] MEDS: Gabapentin 100 MG CAP PO SCH ×2 (08:58→19:34)
[2019-09-26] MEDS: Ramipril 5 MG CAP PO SCH (08:58)
[2019-09-26] MEDS: Ferrous Sulfate 325 MG TAB PO SCH ×2 (08:58→19:34)
[2019-09-26] MEDS: Alogliptin 25 MG TAB PO SCH (08:58)
[2019-09-26] MEDS: Citalopram 20 MG TAB PO SCH (08:58)
[2019-09-26] MEDS: Aspirin Chewable 81 MG TAB PO SCH (08:59)
[2019-09-26] MEDS: Tamsulosin HCl 0.4 MG CAP PO SCH (08:59)
[2019-09-26] MEDS: Heparin 5,000 UNITS/ML VIAL SC SCH ×3 (08:59→19:34)
[2019-09-26] MEDS ORDERED: INSULIN DEGLUDEC 40 UNIT SC SCH (09:00)
--- NOTE | 2019-09-26 15:18 | PRG ---
DATE OF SERVICE: 09/26/2019 SUBJECTIVE: Mr. Roman is an 79-year-old man, history of chronic alcoholism and a recent ground level fall, where he sustained the left femoral neck fracture. The patient is postoperative day #5, status post left hip hemiarthroplasty. He is awake and alert this morning. He has a bedside sitter, who reports the patient is intermittently impulsive. The patient is tolerating diet. Urinary output remains adequate for the patient's age and weight. OBJECTIVE: VITAL SIGNS: This morning includes blood pressure 134/73, pulse 98, respiratory rate is 18, temperature 98.7 degrees Fahrenheit, maximum temperature in the last 24 hours is 99.6 degrees Fahrenheit, and oxygen saturation is 96% on room air. HEART: Reveals regular rate and rhythm. LUNGS: Clear to auscultation bilaterally. Breathing, regular and unlabored. ABDOMEN: Soft, nontender, and nondistended. NEUROLOGIC: Reveals no focal deficits present. : There is an indwelling De Guzman catheter, which returns clear mary urine. LABORATORY FINDINGS: Today includes metabolic profile; sodium 130, potassium 4.5, chloride is 99, bicarb is 22, BUN 24, and creatinine is 1.39, down from 1.63 yesterday. Glucose is 149, magnesium 1.9, and phosphorus 3.7. Note that the serum sodium yesterday was 128. IMPRESSION: 1. Postoperative day #5, status post left hip hemiarthroplasty. 2. Resolving acute hyponatremia. 3. Acute hypomagnesemia. PLAN: 1. Correct abnormal electrolytes. 2. We will continue with free water restriction while monitoring the patient's serum sodium. The patient is chronically hyponatremic with sodium, which hovers in the mid 130s. 3. We will increase activity per Physical and Occupational Therapy. 4. Anticipate discharge to inpatient rehabilitation versus longterm facility once arrangements been made to have a sitter. Job ID: [id number]
[2019-09-26 15:59] LABS: Bacteria/HPF 1+ HPF (None Seen); Bilirubin Negative (Negative); Blood, Urine Trace (Negative); Clarity Turbid (Clear); Glucose, Urine (Dipstick) 100 mg/dL (Negative); Leukocyte 250 Leu/uL (Negative); Nitrite Negative (Negative); Protein, Urine (Dipstick) 100 mg/dL (Neg-Trace); Squamous Epithelial 0-3 HPF (0-3); Urobilinogen Normal mg/dL (Less than 2)
[2019-09-26 16:01] LABS: Urine Culture Reflex Yes Yes
[2019-09-26] MEDS: cefTRIAXone\\ROCEPHIN 2 GM in Sodium Chloride 0.9% 100 ML IVPB SCH (19:33)
[2019-09-26] MEDS: Ezetimibe 10 MG TAB PO SCH (19:34)
[2019-09-26] MEDS: Melatonin 3 MG TAB PO SCH (19:34)
--- NOTE | 2019-09-27 03:19 | PRG ---
DATE OF SERVICE: 09/26/2019 SUBJECTIVE: The patient was seen this evening during rounds. He was resting comfortably in bed and asleep, but no signs of acute distress. Nursing reported no acute events. Sitter is at bedside. OBJECTIVE: VITAL SIGNS: Temperature 98.5, pulse 87, respirations 16, oxygen saturation 97% on 1 L nasal cannula, blood pressure 128/82. ASSESSMENT: 1. Status post ground level fall. 2. Left hip fracture, status post repair. 3. Hematuria due to traumatic De Guzman. 4. Acute kidney injury on chronic kidney disease, improving. 5. Hyponatremia, improving. 6. History of bladder cancer, chronic kidney disease, dementia, Alzheimer's, gastroesophageal reflux disease, diabetes, benign prostatic hypertrophy, diverticulitis, hypothyroidism. PLAN: Continue current diet and pain regimen. Continue physical and occupational therapy. We are waiting for Dr. Muñoz to give the okay to remove the De Guzman. Until that time, we will continue De Guzman and a sitter. Job ID: [id number]
[2019-09-27] MEDS: Acetaminophen 500 MG TAB PO SCH ×4 (05:29→21:34)
[2019-09-27] MEDS: Levothyroxine Sodium 100 MCG TAB PO SCH (05:58)
[2019-09-27] MEDS: Insulin Regular 300 UNITS/3 ML VIAL SC PRN ×4 (05:58→22:04)
[2019-09-27 06:28] LABS: Anion Gap 12 mmol/L (10-20); BUN (Urea Nitrogen) 30 mg/dL (8.4-25.7); Calc. Creatinine Clearance 48 mL/min (70-130); Calcium 8.7 mg/dL (7.8-10.44); Carbon Dioxide 23 mmol/L (23-31); Chloride 100 mmol/L (98-107); Estimated GFR-MDRD 40; Glucose 157 mg/dL (83-110); Phosphorus 4.3 mg/dL (2.3-4.7); Potassium 4.2 mmol/L (3.5-5.1); Sodium 131 mmol/L (136-145)
[2019-09-27] MEDS: Polyethylene Glycol 3350 17 GM Packet PO SCH (08:59)
[2019-09-27] MEDS: Finasteride 5 MG TAB PO SCH (08:59)
[2019-09-27] MEDS: Aspirin Chewable 81 MG TAB PO SCH (09:00)
[2019-09-27] MEDS: Senokot S 8.6-50 MG TAB PO SCH ×2 (09:00→21:35)
[2019-09-27] MEDS: Alogliptin 25 MG TAB PO SCH (09:00)
[2019-09-27] MEDS: Ramipril 5 MG CAP PO SCH (09:00)
[2019-09-27] MEDS: Gabapentin 100 MG CAP PO SCH ×2 (09:00→21:35)
[2019-09-27] MEDS: Ferrous Sulfate 325 MG TAB PO SCH ×2 (09:01→21:35)
[2019-09-27] MEDS: Amlodipine 5 MG TAB PO SCH (09:01)
[2019-09-27] MEDS: Tamsulosin HCl 0.4 MG CAP PO SCH (09:01)
[2019-09-27] MEDS: Sodium Chloride 1 GM TAB PO SCH ×2 (09:02→21:33)
[2019-09-27] MEDS: Citalopram 20 MG TAB PO SCH (09:02)
[2019-09-27] MEDS: Heparin 5,000 UNITS/ML VIAL SC SCH ×3 (09:02→21:34)
[2019-09-27] MEDS: Insulin Glargine 40 UNITS in Pre-Filled Syringe 1 EACH SC SCH (09:08)
[2019-09-27] MEDS: Icosapent Ethyl 1 GM CAPSULE PO SCH ×2 (10:00→17:37)
[2019-09-27] MEDS ORDERED: Sodium Chloride 0.9% 500 ML IV SCH (14:45)
[2019-09-27] MEDS: Ezetimibe 10 MG TAB PO SCH (21:34)
[2019-09-27] MEDS: Melatonin 3 MG TAB PO SCH (21:35)
[2019-09-27] MEDS: cefTRIAXone\\ROCEPHIN 2 GM in Sodium Chloride 0.9% 100 ML IVPB SCH (21:41)
--- NOTE | 2019-09-28 02:29 | PRG ---
DATE OF SERVICE: 09/27/2019 SUBJECTIVE: The patient was seen this evening during rounds. He was sitting up in bed, watching television with no signs of acute distress. He reported his pain is well controlled. De Guzman catheter is in place with clear yellow urine in bag. He is tolerating his diet. He reports eating all of his meals this evening. He was started on Rocephin earlier today for urinary tract infection. Mentation appears to be at baseline now. He also has received 500 mL of normal saline for decrease in renal function. OBJECTIVE: VITAL SIGNS: Temperature 98.2, pulse 81, respirations 20, oxygen saturation 94% on room air, and blood pressure 135/72. GENERAL: Well-appearing elderly male, sitting up in bed with no signs of acute distress. PULMONARY: Equal chest rise and fall. No signs of acute respiratory distress. ASSESSMENT: 1. Status post ground level fall. 2. Left hip fracture, status post repair. 3. Hematuria secondary to traumatic De Guzman. 4. Acute kidney injury on chronic kidney disease, worsening. 5. Urinary tract infection, complicated due to long De Guzman catheter usage. 6. Acute hyponatremia, improving now at baseline. 7. History of bladder cancer, chronic kidney disease, dementia, Alzheimer's, gastroesophageal reflux disease, diabetes, BPH, diverticulitis, hypothyroidism. PLAN: Continue current diet and pain regimen. Continue 1 L free water restriction. Continue home medications as previously started. Continue Rocephin for complicated urinary tract infection. Closely monitor urinary output. Repeat blood work in the morning to monitor kidney function. The patient is pending re-evaluation by Urology on the and possible removal of De Guzman catheter before he can be discharged. We will follow up urine cultures as well. Job ID: [id number]
[2019-09-28 05:22] LABS: Anion Gap 13 mmol/L (10-20); BUN (Urea Nitrogen) 26 mg/dL (8.4-25.7); Calc. Creatinine Clearance 55 mL/min (70-130); Calcium 8.6 mg/dL (7.8-10.44); Carbon Dioxide 22 mmol/L (23-31); Chloride 102 mmol/L (98-107); Estimated GFR-MDRD 46; Glucose 97 mg/dL (83-110); Phosphorus 3.6 mg/dL (2.3-4.7); Sodium 133 mmol/L (136-145)
[2019-09-28] MEDS: Acetaminophen 500 MG TAB PO SCH ×4 (06:08→22:15)
[2019-09-28] MEDS: Levothyroxine Sodium 100 MCG TAB PO SCH (06:08)
[2019-09-28 06:10] LABS: Hemoglobin 9.5 g/dL (14.0-18.0); Mean Corpuscular HGB CONC 32.9 g/dL (32.0-36.0); Mean Corpuscular Hemoglobin 31.1 pg (27.0-31.0); Mean Corpuscular Volume 94.5 fL (78.0-98.0); Mean Platelet Volume 7.4 fL (7.4-10.4); Platelet Count 287 thou/uL (130-400); RBC Distribution Width 11.5 % (11.5-14.5); Red Blood Cell (RBC) Count 3.07 mill/uL (4.70-6.10); White Blood Cell (WBC) Count 6.2 thou/uL (4.8-10.8)
[2019-09-28 06:48] LABS: Band 3 % (5-11); Eosinophils 4 % (0-10); Lymphocytes 35 % (21-51); MDiff Complete? YES; Monocytes 3 % (0-10); Neutrophil 55 % (42-75)
[2019-09-28] MEDS: Icosapent Ethyl 1 GM CAPSULE PO SCH ×2 (08:38→16:51)
[2019-09-28] MEDS: Insulin Glargine 40 UNITS in Pre-Filled Syringe 1 EACH SC SCH (08:38)
[2019-09-28] MEDS: Polyethylene Glycol 3350 17 GM Packet PO SCH (08:38)
[2019-09-28] MEDS: Alogliptin 25 MG TAB PO SCH (08:39)
[2019-09-28] MEDS: Heparin 5,000 UNITS/ML VIAL SC SCH ×3 (08:39→20:34)
[2019-09-28] MEDS: Sodium Chloride 1 GM TAB PO SCH ×2 (08:39→20:32)
[2019-09-28] MEDS: Gabapentin 100 MG CAP PO SCH ×3 (08:39→20:34)
[2019-09-28] MEDS: Ramipril 5 MG CAP PO SCH (08:40)
[2019-09-28] MEDS: Amlodipine 5 MG TAB PO SCH (08:40)
[2019-09-28] MEDS: Finasteride 5 MG TAB PO SCH (08:40)
[2019-09-28] MEDS: Citalopram 20 MG TAB PO SCH (08:41)
[2019-09-28] MEDS: Aspirin Chewable 81 MG TAB PO SCH (08:42)
[2019-09-28] MEDS: Ferrous Sulfate 325 MG TAB PO SCH ×2 (08:43→20:34)
[2019-09-28] MEDS: Senokot S 8.6-50 MG TAB PO SCH ×2 (08:43→20:34)
[2019-09-28] MEDS: Tamsulosin HCl 0.4 MG CAP PO SCH (09:03)
[2019-09-28] MEDS: Insulin Regular 300 UNITS/3 ML VIAL SC PRN ×2 (12:25→16:53)
--- NOTE | 2019-09-28 17:00 | PRG ---
DATE OF SERVICE: 09/28/2019 SUBJECTIVE: The patient remains on the surgical floor. He is status post ground level fall, from which he sustained a left hip fracture. The patient also reportedly removed his De Guzman and caused hematuria, for which underwent evaluation by Dr. Muñoz, who recommends to keep his De Guzman in place for at least 1 week. The patient has required a sitter to prevent him from pulling this out again, which delayed his placement. Today, the sitter and his , who is at bedside reports that he is in much better spirits and he is less impulsive. OBJECTIVE: VITAL SIGNS: Temperature 97.9, heart rate 73, blood pressure 134/74, respirations 14, oxygen saturation 95% on room air. GENERAL: The patient is resting comfortably in bed. He is awake, conversant, appropriate, interactive, and appears to be in good spirits. LUNGS: His respirations are nonlabored. Clear to auscultation bilaterally. HEART: Regular rate and rhythm. ABDOMEN: Soft, nontender with active bowel sounds. EXTREMITIES: Neurovascularly intact x4. LABORATORY FINDINGS: White blood cell count 6.2, hemoglobin 9.5, hematocrit 29.0, platelets 287. Sodium 133, potassium 4.0, chloride 102, CO2 of 22, BUN 26, creatinine 1.46, glucose 97, magnesium 2.0, phosphorus 3.6. LABORATORY DATA: There are no radiographs reviewed this morning. ASSESSMENT AND PLAN: 1. Status post ground level fall. 2. Status post open reduction and internal fixation of left proximal femur fracture. 3. Hematuria secondary to traumatic De Guzman removal by the patient. 4. Acute kidney injury on chronic kidney disease, improving. 5. Urinary tract infection, currently on Rocephin and no growth from urine culture at 48 hours. 6. Acute on chronic hyponatremia, appears at baseline. 7. History of bladder cancer, chronic kidney disease, dementia, Alzheimer's, gastroesophageal reflux disease, diabetes, BPH, diverticulitis, hypothyroidism. PLAN: Plan will be to continue supportive care to include his 1 L free water restriction, De Guzman per Urology, antibiotics for urinary tract infection likely deescalate tomorrow. Job ID: [id number]
[2019-09-28] MEDS: cefTRIAXone\\ROCEPHIN 2 GM in Sodium Chloride 0.9% 100 ML IVPB SCH (20:33)
[2019-09-28] MEDS: Ezetimibe 10 MG TAB PO SCH (20:33)
[2019-09-28] MEDS: Melatonin 3 MG TAB PO SCH (20:34)
--- NOTE | 2019-09-29 03:18 | PRG ---
DATE OF SERVICE: 09/29/2019 SUBJECTIVE: The patient was seen this evening during rounds. He was lying in bed comfortably and asleep with no signs of acute distress. Nursing reported no acute events. OBJECTIVE: VITAL SIGNS: Temperature 99.1, pulse 86, respirations 18, oxygen saturation 94% on room air, and blood pressure 144/76. ASSESSMENT: 1. Status post ground level fall. 2. Left hip fracture, status post repair. 3. Hematuria due to traumatic De Guzman, improved. 4. Acute kidney injury on chronic kidney disease, improved. 5. Hyponatremia, improved. 6. Urinary tract infection, associated with prolonged De Guzman catheter use. 7. History of bladder cancer, chronic kidney disease, dementia, Alzheimer's, gastroesophageal reflux disease, diabetes, benign prostatic hyperplasia, diverticulitis, and hypothyroidism. PLAN: Continue current diet and pain regimen. Continue Rocephin. Continue 1 L of free water restriction. Continue working with Physical and Occupational Therapy. Dr. Joce Copeland to re-evaluate De Guzman this week for possible discontinue and then patient will be ready for discharge to care home facility. Job ID: [id number]
[2019-09-29] MEDS: Acetaminophen 500 MG TAB PO SCH ×4 (04:01→21:44)
[2019-09-29] MEDS: Levothyroxine Sodium 100 MCG TAB PO SCH (06:11)
--- NOTE | 2019-09-29 07:50 | PRG ---
DATE OF SERVICE: 09/29/2019 SUBJECTIVE: Mental status improved. Recognized me as one of his provider. Appears to be more alert. Sitter at bedside. OBJECTIVE: VITAL SIGNS: Stable. Currently, on water restriction due to hyponatremia. I's and O's 1258 in, 1950 out. He is negative 690 mL, 1 BM. ABDOMEN: Soft, nontender, nondistended. GENITOURINARY: De Guzman catheter secured demonstrating clear yellow urine. PERTINENT LABORATORY DATA: White count 6.2, hemoglobin 9.5, platelet 287. Coagulation profile within normal limits. Sodium this morning is 133 and creatinine 1.4, which is near his baseline. Sodium improved from 128 to 133 with free water restriction. Urine culture reviewed, negative, currently on Rocephin. IMPRESSION AND PLAN: Mr. Roman is an 79-year-old male, known to dc, who is currently admitted status post fall, status post left open reduction and internal fixation. 1. History of benign prostatic hyperplasia, status post GreenLight laser prostatectomy, status post UroLift with initial improvement of PVR; however, recently had recurrence of PVR of 600 mL. 2. Traumatic De Guzman catheter removal a week ago with gross hematuria. Hematuria has resolved. Currently, on heparin for DVT prophylaxis. 3. Bladder cancer in remission. Recent cystoscopy, cytology negative. 4. History of alcohol abuse. 5. History of hyponatremia, improved with water restriction. 6. Mental status improving. RECOMMENDATIONS: Continue BPH medications with Flomax, Proscar. Continue bedside sitter. His mental status is improving. I will initiate voiding trial tomorrow morning. Do not remove De Guzman unless initiated by , as I will be monitoring his PVR. Job ID: [id number] [facility]
[2019-09-29] MEDS: Ramipril 5 MG CAP PO SCH (08:55)
[2019-09-29] MEDS: Tamsulosin HCl 0.4 MG CAP PO SCH (08:56)
[2019-09-29] MEDS: Senokot S 8.6-50 MG TAB PO SCH ×2 (08:56→20:02)
[2019-09-29] MEDS: Alogliptin 25 MG TAB PO SCH (08:56)
[2019-09-29] MEDS: Sodium Chloride 1 GM TAB PO SCH ×2 (08:56→20:04)
[2019-09-29] MEDS: Finasteride 5 MG TAB PO SCH (08:57)
[2019-09-29] MEDS: Gabapentin 100 MG CAP PO SCH ×2 (08:57→20:04)
[2019-09-29] MEDS: Citalopram 20 MG TAB PO SCH (08:57)
[2019-09-29] MEDS: Amlodipine 5 MG TAB PO SCH (08:57)
[2019-09-29] MEDS: Polyethylene Glycol 3350 17 GM Packet PO SCH (08:58)
[2019-09-29] MEDS: Ferrous Sulfate 325 MG TAB PO SCH ×2 (08:58→20:03)
[2019-09-29] MEDS: Icosapent Ethyl 1 GM CAPSULE PO SCH ×2 (08:58→17:35)
[2019-09-29] MEDS: Heparin 5,000 UNITS/ML VIAL SC SCH ×3 (08:58→20:02)
[2019-09-29] MEDS: Aspirin Chewable 81 MG TAB PO SCH (08:58)
[2019-09-29] MEDS: Insulin Glargine 40 UNITS in Pre-Filled Syringe 1 EACH SC SCH (08:59)
[2019-09-29] MEDS: Insulin Regular 300 UNITS/3 ML VIAL SC PRN ×2 (11:39→17:34)
--- NOTE | 2019-09-29 16:06 | PQF ---
CLINICAL DOCUMENTATION IMPROVEMENT CLARIFICATION FORM: ICD-10 Updated PLEASE DO AN ADDENDUM TO THE PROGRESS NOTE WITH ANY DOCUMENTATION UPDATES OR ADDITIONS AND CARRY THROUGH TO DC SUMMARY. THANK YOU. DATE: 09/29/2019 ATTN: Christiano Hernandez PA-C Please exercise your independent, professional judgment in responding to the clarification form. Clinical indicators are provided on the bottom of this form for your review Please check appropriate box(s): [ X] Encephalopathy: Type: [ ] Acute [ X] Subacute [ ] Chronic Etiology: [ ] Metabolic [ ] Toxic [ ] Unspecified [ X ] in the setting of underlying dementia [ ] Other (please specify) [ ] Transient Alteration of Awareness [ ] Other diagnosis [ ] Unable to determine In addition, please specify: Present on Admission (POA): [ ] Yes [ ] No [ X ] Unable to determine For continuity of documentation, please document condition throughout progress notes and discharge summary. Thank You. CLINICAL INDICATORS - SIGNS / SYMPTOMS / LABS / RESULTS AND LOCATION IN EMR 09/21 (Wanda) at bedside when this occurred, in which he pulled the De Guzman catheter out. 09/22 (Patytristan) He was slightly confused. The nurse reported that he was picking at everything. Plan: We will also add melatonin scheduled at night as the pt is becoming delirious. 09/23 (Wanda) Consider hospitalist, Renal consult for hyponatremia, as it may be contributing to his confusion. 09/26 (Donnie) Subjective: Mentation appears to be at baseline now. Assessment: Acute hyponatremia, improving now at baseline. 09/28 (Fabrice) Sodium improved from 128 to 133 with free water restriction. I/P: Mental status improving RISKS: H&P 09/19: 79 yo. PMH: Alzheimer's ; BPH, type 2 DM, bladder cancer. CKD. A/P: L femoral neck fx; Chronic hyponatremia. [facility] There is a sitter at the bedside so he does not pull on his De Guzman Plan: We will also add melatonin scheduled at night as the pt is becoming delirious. 09/24 (Taghehchian) The pt is started on sodium BID today 09/26 (Donnie) Continue 1 L free water restriction. Thank you, Glenys (This form is maintained as a part of the permanent medical record) 2014 [employer]. All Rights Reserved Glenys Owens, RN, BSN [email or web address]ENTER[facility]isa
[2019-09-29] MEDS: Melatonin 3 MG TAB PO SCH (20:03)
[2019-09-29] MEDS: Ezetimibe 10 MG TAB PO SCH (20:03)
[2019-09-29] MEDS: traMADol HCl 50 MG TAB PO PRN (20:04)
--- NOTE | 2019-09-30 02:56 | PRG ---
DATE OF SERVICE: SUBJECTIVE: Mr. Roman remained in surgical floor. The patient was seen on round this evening. Nurse reports no events. The patient currently lying down in bed, sleeping comfortably with no acute respiratory distress. OBJECTIVE: GENERAL: Currently, the patient lying in bed comfortably with no acute respiratory distress. VITAL SIGNS: Temperature 98.4, heart rate 88, respiratory rate 14, O2 saturation 93% on room air, blood pressure 144/73. ASSESSMENT: 1. Status post ground level fall. 2. Left hip fracture open repair. 3. Hematuria, improved. 4. Acute kidney injury on chronic kidney disease, stable. 5. Urinary tract infection. 6. History of bladder cancer, chronic kidney disease, dementia, diabetes, BPH, hypothyroid; stable. PLAN: Continue supportive care. Continue pain control. Urologist will start void trial tomorrow. Anticipate placement in [facility] in the next 24-48 hours. Job ID: [id number]
[2019-09-30] MEDS: Acetaminophen 500 MG TAB PO SCH ×4 (04:29→21:01)
[2019-09-30] MEDS: Levothyroxine Sodium 100 MCG TAB PO SCH (05:24)
--- NOTE | 2019-09-30 07:30 | PRG ---
DATE OF SERVICE: 09/30/2019 SUBJECTIVE: The patient easily arousable, mental status continues to improve. OBJECTIVE: VITAL SIGNS: Appear to be at baseline. Vital signs are stable. I' s and O's 1778 in, 1800 out. ABDOMEN: Soft, nontender, nondistended. GENITOURINARY: De Guzman catheter removed this morning at 5 per my request. PERTINENT LABORATORY: Stable. White count 6.2, hemoglobin 9.5, platelets 287. Creatinine 1.4. ASSESSMENT AND PLAN: 1. An 79-year-old male, currently admitted, status post fall, status post left open reduction and internal fixation. 2. History of traumatic De Guzman catheter last week with gross hematuria. 3. History of bladder cancer in remission. Recent cystoscopy, cytology negative. 4. History of alcohol abuse. 5. History of hyponatremia with infusion, currently on water restriction with improvement of sodium. 6. History of BPH. Continue dual medical therapy. De Guzman catheter removed this morning for voiding trial. Further recommendations pending status of his voiding trial Job ID: [id number] MTDD
[2019-09-30] MEDS: Alogliptin 25 MG TAB PO SCH (08:03)
[2019-09-30] MEDS: Tamsulosin HCl 0.4 MG CAP PO SCH (08:03)
[2019-09-30] MEDS: Icosapent Ethyl 1 GM CAPSULE PO SCH ×2 (08:03→17:55)
[2019-09-30] MEDS: Sodium Chloride 1 GM TAB PO SCH (08:03)
[2019-09-30] MEDS: Amlodipine 5 MG TAB PO SCH (08:03)
[2019-09-30] MEDS: Senokot S 8.6-50 MG TAB PO SCH ×2 (08:03→20:58)
[2019-09-30] MEDS: Gabapentin 100 MG CAP PO SCH ×2 (08:04→20:58)
[2019-09-30] MEDS: Finasteride 5 MG TAB PO SCH (08:04)
[2019-09-30] MEDS: Ramipril 5 MG CAP PO SCH (08:04)
[2019-09-30] MEDS: Ferrous Sulfate 325 MG TAB PO SCH ×2 (08:04→20:58)
[2019-09-30] MEDS: Aspirin Chewable 81 MG TAB PO SCH (08:04)
[2019-09-30] MEDS: Citalopram 20 MG TAB PO SCH (08:04)
[2019-09-30] MEDS: Polyethylene Glycol 3350 17 GM Packet PO SCH (08:04)
[2019-09-30] MEDS: Heparin 5,000 UNITS/ML VIAL SC SCH ×3 (08:05→20:59)
[2019-09-30] MEDS: Insulin Glargine 40 UNITS in Pre-Filled Syringe 1 EACH SC SCH (08:06)
[2019-09-30] MEDS: Insulin Regular 300 UNITS/3 ML VIAL SC PRN ×3 (11:45→21:01)
--- NOTE | 2019-09-30 13:34 | PRG ---
DATE OF SERVICE: 09/30/2019 The patient reassessed in the afternoon for voiding parameters. Unable to void , at 6-hour interval since the De Guzman catheter was removed this morning. Postvoid residual on bladder scan about 325 mL, I passed a 14-Kiswahili straight cath without significant issues, clear yellow urine obtained with PVR about 400 mL. Nursing staff provided orders regarding bladder rehab, prompt the patient to void every 6 hours, bladder scan to be performed every 6 hours. If PVR is greater than 300 mL, straight cath for CIC. Spoke with trauma PA, plan is to keep him until tomorrow to follow the trends of his PVR. I anticipate that the patient will require ongoing bladder rehab at snf. Continue bladder rehab at snf. Continue BPH medications. Job ID: [id number] MTDD
--- NOTE | 2019-09-30 15:58 | PRG ---
DATE OF SERVICE: 09/30/2019 SUBJECTIVE: Mr. Roman is an 79-year-old man who is postoperative day #9, status post left hip hemiarthroplasty. The patient also suffered traumatic catheter related urethral injury. De Guzman catheter was discontinued this morning, and the patient continues with urinary retention. He is being followed by Urology. Otherwise, he is quite awake and alert today and less impulsive. OBJECTIVE: VITAL SIGNS: Include blood pressure 116/67, pulse 74, respiratory rate is 16, temperature 98.1 degrees Fahrenheit, and oxygen saturation 94% on room air. HEART: Reveals regular rate and rhythm. LUNGS: Clear to auscultation bilaterally. His breathing is regular and nonlabored. ABDOMEN: Soft, nontender, and nondistended. NEUROLOGIC: Reveals no focal deficits present. IMPRESSION: 1. Postoperative day #9, status post left hip hemiarthroplasty. 2. Resolved traumatic urethral injury. 3. Residual urinary retention. Continue voiding trials. 4. Anticipate discharge to swing bed within next 24 hours. Job ID: [id number]
[2019-09-30] MEDS: Ezetimibe 10 MG TAB PO SCH (20:58)
[2019-09-30] MEDS: Melatonin 3 MG TAB PO SCH (20:58)
--- NOTE | 2019-10-01 01:08 | PDOC.BPN ---
- Brief Progress Note DATE OF SERVICE: 09/30/2019 SUBJECTIVE: Mr. Roman remained in surgical floor. The patient was seen on round this evening. Nurse reports no events. The patient currently lying down in bed , patient voice no concern. Patient De Guzman was discontinue today, patient is on void trial OBJECTIVE: GENERAL: Currently, the patient lying in bed comfortably with no acute respiratory distress. VITAL SIGNS: stable ASSESSMENT: 1. Status post ground level fall. 2. Left hip fracture open repair. 3. Hematuria, improved. 4. Acute kidney injury on chronic kidney disease, stable. 5. Urinary tract infection. 6. History of bladder cancer, chronic kidney disease, dementia, diabetes, BPH, hypothyroid; stable. PLAN: Continue supportive care. Continue pain control. Urologist will start void trial tomorrow. Anticipate placement in [facility] facility in the next 24-48 hours.
[2019-10-01] MEDS: Acetaminophen 500 MG TAB PO SCH ×2 (04:29→09:01)
[2019-10-01] MEDS: traMADol HCl 50 MG TAB PO PRN (05:58)
[2019-10-01] MEDS: Levothyroxine Sodium 100 MCG TAB PO SCH (05:59)
--- NOTE | 2019-10-01 07:26 | PRG ---
DATE OF SERVICE: 10/01/2019 SUBJECTIVE: The patient is resting comfortably. Vital signs are stable. I's and O's, his voiding status, PVR check reviewed. He has been voiding spontaneously in increments of 250 mL, per my orders, the patient was catheterized, PVR greater than 400 mL. Catheterized amount 350 to 375. His bladder scan was read over 426. PHYSICAL EXAMINATION: ABDOMEN: Soft, nontender, and nondistended. Per nursing staff, no problems catheterizing the patient. IMPRESSION AND PLAN: 1. Mr. Roman is an 79-year-old male currently admitted status post fall, open reduction and internal fixation. 2. History of BPH, status post laser prostatectomy/UroLift with initial improvement of PVR. 3. Urinary retention, multifactorial. 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 Given his deconditioned status, transitioning to long-term orders in chart regarding bladder rehabilitation: The patient to be prompted to void every 6 hours, PVR bladder scan every 6 hours, CIC for postvoid residual, bladder scan read over greater than 400 mL. 4. Bladder cancer, status post cysto, cytology negative in remission. 5. Mental status changes, improved with correction of hyponatremia. Disposition, will likely be discharged to long-term facility with bladder rehabilitation. He has a followup appointment with me on October 14. Continue his BPH medications, Flomax and Proscar. Job ID: [id number]
[2019-10-01] MEDS: Icosapent Ethyl 1 GM CAPSULE PO SCH (08:59)
[2019-10-01] MEDS: Ferrous Sulfate 325 MG TAB PO SCH (08:59)
[2019-10-01] MEDS: Finasteride 5 MG TAB PO SCH (09:00)
[2019-10-01] MEDS: Ramipril 5 MG CAP PO SCH (09:00)
[2019-10-01] MEDS: Senokot S 8.6-50 MG TAB PO SCH (09:00)
[2019-10-01] MEDS: Citalopram 20 MG TAB PO SCH (09:00)
[2019-10-01] MEDS: Alogliptin 25 MG TAB PO SCH (09:00)
[2019-10-01] MEDS: Insulin Glargine 40 UNITS in Pre-Filled Syringe 1 EACH SC SCH (09:01)
[2019-10-01] MEDS: Aspirin Chewable 81 MG TAB PO SCH (09:01)
[2019-10-01] MEDS: Polyethylene Glycol 3350 17 GM Packet PO SCH (09:01)
[2019-10-01] MEDS: Heparin 5,000 UNITS/ML VIAL SC SCH (09:01)
[2019-10-01] MEDS: Gabapentin 100 MG CAP PO SCH (09:01)
[2019-10-01] MEDS: Tamsulosin HCl 0.4 MG CAP PO SCH (09:01)
[2019-10-01] MEDS: Amlodipine 5 MG TAB PO SCH (09:01)
[2019-10-01] MEDS ORDERED: traMADol HCl 50 MG TAB PO PRN (10:51)
[2019-10-01] MEDS: Insulin Regular 300 UNITS/3 ML VIAL SC PRN (11:25)
[2019-10-01 11:46] VITALS: BP 145/79; TEMP 98.7
--- NOTE | 2019-10-06 13:07 | PQF ---
SHERIE CRUZ GARY PA- C [id number] [facility] [id number] CLINICAL DOCUMENTATION CLARIFICATION FORM: POST DISCHARGE Addendum to original discharge summary date: ____ Late entry note date: __ DATE: 10/06/2019 ATTN :DOUG TAYLOR Please exercise your independent, professional judgment in responding to the clarification form. Clinical indicators are provided on the bottom of this form for your review Please check appropriate box(s): [ ] UTI due to De Guzman catheter [ ] UTI not due to De Guzman catheter [ ] Other diagnosis [ ] Unable to determine For continuity of documentation, please document condition throughout progress notes and discharge summary. Thank You. CLINICAL INDICATORS - SIGNS / SYMPTOMS / LABS - Hematuria due to traumatic De Guzman- Progress note, 09/26, Donnie Quiroz PA-C - Urinary tract infection, complicated due to long De Guzman catheter usage- Progress note, 09/26, Donnie Quiroz PA-C - The patient also reportedly removed his De Guzman and caused hematuria- Progress note, 09/27, DOUG TAYLOR PA-C - There is an indwelling De Guzman catheter- Progress note, 09/25, Miguel Angel carrizales U DO - UTI, associated with prolonged De Guzman catheter use- Progress note, 09/28, Donnie Quiroz PA-C RISK FACTORS - Acute kidney injury - Progress note, 09/28, Donnie Quiroz PA-C - Hx of bladder cancer- Progress note, 09/28, Donnie Quiroz PA-C - BPH- Progress note, 09/28, Donnie Quiroz PA-C TREATMENT: -Cefazolin.IV- JUL, 09/20 -Rocephin.IV- MAr, 09/25 (This form is maintained as a part of the permanent medical record) 2014 [employer] All Rights Reserved Marquez JEFF
== END 2019-10-01 13:45 | DRG 470 ==
LOC: ERS 19:19 → SURG B 23:56
PROVIDERS: ADMIT Specialist; ATTEND Specialist
PROC: 0SRS0JZ Replacement of Left Hip Joint, Femoral Surface with Synthetic Substitute, Open Approach (ICD-10-PCS; principal; 2019-09-21)
DX: S72.142A Displaced intertrochanteric fracture of left femur, initial encounter for closed fracture (principal); T83.511A Infection and inflammatory reaction due to indwelling urethral catheter, initial encounter; E87.1 Hypo-osmolality and hyponatremia; N17.9 Acute kidney failure, unspecified; T83.83XA Hemorrhage due to genitourinary prosthetic devices, implants and grafts, initial encounter; G93.49 Other encephalopathy; F10.20 Alcohol dependence, uncomplicated; I12.9 Hypertensive chronic kidney disease with stage 1 through stage 4 chronic kidney disease, or unspecified chronic kidney disease; N18.9 Chronic kidney disease, unspecified; K21.9 Gastro-esophageal reflux disease without esophagitis; C67.9 Malignant neoplasm of bladder, unspecified; I25.10 Atherosclerotic heart disease of native coronary artery without angina pectoris; G30.9 Alzheimer's disease, unspecified; F02.80 Dementia in other diseases classified elsewhere, unspecified severity, without behavioral disturbance, psychotic disturbance, mood disturbance, and anxiety; E03.9 Hypothyroidism, unspecified; N40.0 Benign prostatic hyperplasia without lower urinary tract symptoms; F32.9 Major depressive disorder, single episode, unspecified; E83.42 Hypomagnesemia; E11.65 Type 2 diabetes mellitus with hyperglycemia; R31.0 Gross hematuria; E11.22 Type 2 diabetes mellitus with diabetic chronic kidney disease; W18.39XA Other fall on same level, initial encounter; E11.42 Type 2 diabetes mellitus with diabetic polyneuropathy; Z79.4 Long term (current) use of insulin; Z98.42 Cataract extraction status, left eye; Z98.41 Cataract extraction status, right eye
CPT/HCPCS: 36415; 36416; 51798; 52000; 70450; 71045; 72125; 72170; 80048; 80053; 81001; 83036; 83735; 83880; 84100; 84484; 85007; 85025; 85027; 85610; 85730; 86850; 86900; 86901; 87086; 88121; 93005; 94640; 96374; 96375; 96376; 99214; G0390; G0463; J0690; J0696; J1644; J1815; J1940; J2001; J2270; J2405; J2704; J3010; J3475; J3490; J7050; J7620

== ENCOUNTER 2020-12-23 12:10 | Emergency (ER) | payer MEDICARE ==
[2020-12-23 13:03] LABS: #Basophils 0.1 thou/uL (0.0-0.2); #Eosinphils 0.5 thou/uL (0.0-0.7); #Lymphocytes 1.6 thou/uL (1.20-3.40); #Monocytes 0.6 thou/uL (0.11-0.59); #Neutrophils 7.2 thou/uL (1.40-6.50); %Basophils 0.6 % (0.0-1.0); %Lymphocytes 15.6 % (21.0-51.0); %Monocytes 5.9 % (0.0-10.0); %Neutrophils 72.9 % (42.0-75.0); Hemoglobin 13.5 g/dL (14.0-18.0); Mean Corpuscular HGB CONC 35.4 g/dL (32.0-36.0); Mean Corpuscular Hemoglobin 31.8 pg (27.0-31.0); Mean Platelet Volume 7.3 fL (7.4-10.4); Platelet Count 211 thou/uL (130-400); RBC Distribution Width 11.4 % (11.5-14.5); Red Blood Cell (RBC) Count 4.25 mill/uL (4.70-6.10); White Blood Cell (WBC) Count 9.9 thou/uL (4.8-10.8)
[2020-12-23 13:24] LABS: ALT (SGPT) 15 U/L (8-55); AST (SGOT) 17 U/L (5-34); Albumin 3.6 g/dL (3.4-4.8); Alkaline Phosphatase 101 U/L (40-110); Anion Gap 12 mmol/L (10-20); BUN (Urea Nitrogen) 40 mg/dL (8.4-25.7); Bilirubin, Total 0.4 mg/dL (0.2-1.2); Calc. Creatinine Clearance 0 mL/min (70-130); Calcium 9.2 mg/dL (7.8-10.44); Carbon Dioxide 21 mmol/L (23-31); Chloride 105 mmol/L (98-107); Globulin 3.7 g/dL (2.4-3.5); Glucose 307 mg/dL (83-110); Potassium 5.4 mmol/L (3.5-5.1); Protein, Total 7.3 g/dL (5.8-8.1); Sodium 133 mmol/L (136-145)
[2020-12-23] MEDS ORDERED: Insulin Regular 300 UNITS/3 ML VIAL ONE (13:40)
[2020-12-23] MEDS ORDERED: hydrALAZINE 20 MG/ML VIAL ONE (15:21)
[2020-12-23 15:44] LABS: Anion Gap 11 mmol/L (10-20); BUN (Urea Nitrogen) 38 mg/dL (8.4-25.7); Calc. Creatinine Clearance 0 mL/min (70-130); Calcium 8.9 mg/dL (7.8-10.44); Carbon Dioxide 20 mmol/L (23-31); Chloride 107 mmol/L (98-107); Glucose 248 mg/dL (83-110); Potassium 4.7 mmol/L (3.5-5.1); Sodium 133 mmol/L (136-145)
[2020-12-23 15:50] LABS: Troponin I Less than 0.010 ng/mL (< 0.028)
[2020-12-23 16:05] LABS: Bacteria/HPF 4+ HPF (None Seen); Bilirubin Negative (Negative); Blood, Urine 1+ (Negative); Clarity Extra Turbid (Clear); Glucose, Urine (Dipstick) 500 mg/dL (Negative); Ketone, Urine Negative (Negative); Leukocyte 500 Leu/uL (Negative); Nitrite Negative (Negative); Protein, Urine (Dipstick) 100 mg/dL (Neg-Trace); Specific Gravity, Urine 1.015 (1.002-1.036); Squamous Epithelial 0-3 HPF (0-3); Urobilinogen Normal mg/dL (Less than 2); WBC/HPF Greater than 50 HPF (0-3); pH, Urine 5.5 (5.0-9.0)
[2020-12-23] MEDS ORDERED: cefTRIAXone\\ROCEPHIN 1 GM VIAL ONE (16:42)
[2020-12-23] MEDS ORDERED: diphenhydrAMINE 50 MG/ML VIAL ONE (16:52)
[2020-12-23] MEDS ORDERED: Metoclopramide HCl 10 MG/2 ML VIAL ONE (16:52)
[2020-12-23] MEDS ORDERED: Acetaminophen 500 MG TAB ONE (18:44)
[2020-12-23] MEDS ORDERED: cloNIDine 0.1 MG TAB ONE (19:38)
[2020-12-23] MEDS ORDERED: Amlodipine 5 MG TAB ONE (20:38)
== END 2020-12-23 22:15 | disposition home or self-care (01) ==
LOC: ERS 12:10
DX: R55 Syncope and collapse (principal); I10 Essential (primary) hypertension; R51.9 Headache, unspecified; E03.9 Hypothyroidism, unspecified; K21.9 Gastro-esophageal reflux disease without esophagitis; Z87.891 Personal history of nicotine dependence
CPT/HCPCS: 36415; 36416; 70450; 71045; 72125; 80053; 81003; 81015; 84484; 85025; 87077; 87086; 87186; 93005; 96365; 96375; J0360; J0696; J1200; J1815; J2765

== ENCOUNTER 2021-02-28 21:30 | Inpatient (IN) | payer MEDICARE ==
[~2021-02-28 21:30] MED LIST: Iopamidol-370 76% 500 ML 1 ML ONE
[2021-02-28] MEDS ORDERED: Piperacillin/Tazobactam 4.5 GM VIAL ONE (22:10)
[2021-02-28 22:50] LABS: Mean Corpuscular HGB CONC 35.6 g/dL (32.0-36.0); Mean Corpuscular Hemoglobin 32.1 pg (27.0-31.0); Mean Corpuscular Volume 90.3 fL (78.0-98.0); Mean Platelet Volume 7.6 fL (7.4-10.4); Platelet Count 177 thou/uL (130-400); RBC Distribution Width 11.9 % (11.5-14.5); Red Blood Cell (RBC) Count 4.34 mill/uL (4.70-6.10); White Blood Cell (WBC) Count 9.6 thou/uL (4.8-10.8)
[2021-02-28 23:09] LABS: ALT (SGPT) 19 U/L (8-55); AST (SGOT) 22 U/L (5-34); Albumin 3.7 g/dL (3.4-4.8); Alkaline Phosphatase 117 U/L (40-110); Anion Gap 18 mmol/L (10-20); BUN (Urea Nitrogen) 44 mg/dL (8.4-25.7); Band 37 % (5-11); Bilirubin, Total 0.3 mg/dL (0.2-1.2); Calc. Creatinine Clearance 0 mL/min (70-130); Calcium 9.2 mg/dL (7.8-10.44); Carbon Dioxide 16 mmol/L (23-31); Chloride 106 mmol/L (98-107); Globulin 3.6 g/dL (2.4-3.5); Glucose 107 mg/dL (83-110); Lymphocytes 1 % (21-51); MDiff Complete? YES; Metamyelocyte 1 % (0-0); Myelocyte 1 % (0-0); Neutrophil 60 % (42-75); Potassium 4.7 mmol/L (3.5-5.1); Protein, Total 7.3 g/dL (5.8-8.1); Sodium 135 mmol/L (136-145)
[2021-02-28 23:23] LABS: SARS-CoV-2 NAA Rapid Test Not Detected (NotDetected)
[2021-02-28 23:28] LABS: Bacteria/HPF 4+ HPF (None Seen); Bilirubin Negative (Negative); Blood, Urine 3+ (Negative); Clarity Turbid (Clear); Glucose, Urine (Dipstick) Normal (Negative); Ketone, Urine Negative (Negative); Leukocyte 500 Leu/uL (Negative); Nitrite Negative (Negative); Protein, Urine (Dipstick) 100 mg/dL (Neg-Trace); RBC/HPF Greater than 50 HPF (0-3); Specific Gravity, Urine 1.015 (1.002-1.036); Squamous Epithelial 0-3 HPF (0-3); Urobilinogen Normal mg/dL (Less than 2); WBC/HPF Greater than 50 HPF (0-3); pH, Urine 5.5 (5.0-9.0)
[2021-02-28] MEDS ORDERED: VANCOMYCIN 2 GRAM/400 ML BAG 2 GM in Premix Bag 1 BAG IVPB SCH (23:59)
[2021-03-01] MEDS ORDERED: Acetaminophen 650 MG Suppository PR PRN (00:44)
[2021-03-01] MEDS ORDERED: Ondansetron PF 4 MG/2 ML Vial IVP PRN (00:44)
[2021-03-01] MEDS ORDERED: Ondansetron ODT 4 MG TAB PO PRN (00:44)
[2021-03-01] MEDS ORDERED: Dextrose 50% Abboject 50 ML SYRINGE SLOW IVP PRN (00:47)
[2021-03-01] MEDS ORDERED: Dextrose 5% in Water 1,000 ML IV PRN (00:47)
[2021-03-01 05:06] LABS: Hemoglobin 11.6 g/dL (14.0-18.0); Mean Corpuscular HGB CONC 34.1 g/dL (32.0-36.0); Mean Corpuscular Hemoglobin 30.9 pg (27.0-31.0); Mean Corpuscular Volume 90.6 fL (78.0-98.0); Mean Platelet Volume 7.9 fL (7.4-10.4); Platelet Count 160 thou/uL (130-400); RBC Distribution Width 11.8 % (11.5-14.5); Red Blood Cell (RBC) Count 3.77 mill/uL (4.70-6.10); White Blood Cell (WBC) Count 21.7 thou/uL (4.8-10.8)
[2021-03-01 05:48] LABS: Band 44 % (5-11); Lymphocytes 2 % (21-51); MDiff Complete? YES; Monocytes 3 % (0-10); Neutrophil 51 % (42-75)
[2021-03-01 05:50] LABS: Lactic Acid 2.2 mmol/L (0.5-2.2)
[2021-03-01] MEDS ORDERED: Piperacillin/Tazobactam 3.375 GM VIAL ONE (07:39)
[2021-03-01] MEDS: Piperacillin/Tazobactam 3.375 GM in Sodium Chloride 0.9% 100 ML IVPB SCH ×3 (07:50→23:52)
[2021-03-01] MEDS: Enoxaparin Sodium 30 MG/0.3 ML SYRINGE SC SCH (08:06)
[2021-03-01] MEDS ORDERED: Enoxaparin Sodium 30 MG/0.3 ML SYRINGE ONE (08:07)
[2021-03-01 08:36] LABS: Chloride 110 mmol/L (98-107); Potassium 4.8 mmol/L (3.5-5.1); Sodium 135 mmol/L (136-145)
[2021-03-01 08:37] LABS: Calcium 8.5 mg/dL (7.8-10.44); Glucose 107 mg/dL (83-110)
[2021-03-01 08:39] LABS: Anion Gap 17 mmol/L (10-20); Carbon Dioxide 13 mmol/L (23-31)
[2021-03-01 08:40] LABS: Calc. Creatinine Clearance 34 mL/min (70-130)
[2021-03-01 08:41] LABS: BUN (Urea Nitrogen) 47 mg/dL (8.4-25.7)
[2021-03-01] MEDS ORDERED: Piperacillin/Tazobactam 3.375 GM in Sodium Chloride 0.9% 100 ML IVPB SCH (09:00)
[2021-03-01] MEDS ORDERED: Vancomycin 1.5 GRAM/300 ML BAG 1.5 GM in Premix Bag 1 BAG IVPB SCH (09:00)
[2021-03-01] MEDS: Sodium Chloride 0.9% 1,000 ML IV SCH ×4 (11:38→15:43)
[2021-03-01] MEDS ORDERED: FLU VACC QS2021-22(65YR UP)/PF 240 MCG/0.7 ML SYRINGE IM ONE (12:00)
[2021-03-01] MEDS ORDERED: MEROPENEM 1 GM/50 ML 1 GM in Premix Bag 1 BAG IVPB SCH (18:00)
[2021-03-01] MEDS ORDERED: Meropenem 1 GM in Sodium Chloride 0.9% 100 ML IVPB SCH (21:00)
[2021-03-02] MEDS ORDERED: Vancomycin 1.5 GRAM/300 ML BAG 1.5 GM in Premix Bag 1 BAG IVPB SCH (03:00)
[2021-03-02] MEDS: MEROPENEM 1 GM/50 ML 1 GM in Premix Bag 1 BAG IVPB SCH ×2 (06:11→18:02)
[2021-03-02] MEDS: Sodium Chloride 0.9% 1,000 ML IV SCH (06:12)
[2021-03-02] MEDS ORDERED: UBIDECARENONE 10 MG PO SCH (09:00)
[2021-03-02] MEDS ORDERED: MEMANTINE HCL 21 MG PO SCH (09:00)
[2021-03-02] MEDS ORDERED: Ubidecarenone [Coenzyme Q10] 10 MG Capsule PO SCH (09:00)
[2021-03-02] MEDS: Aspirin Chewable 81 MG TAB PO SCH (09:12)
[2021-03-02] MEDS: Saccharomyces boulardii 250 MG CAP PO SCH (09:12)
[2021-03-02] MEDS: Metoprolol Tartrate 25 MG TAB PO SCH ×2 (09:12→20:15)
[2021-03-02] MEDS: Finasteride 5 MG TAB PO SCH (09:13)
[2021-03-02] MEDS: Enoxaparin Sodium 30 MG/0.3 ML SYRINGE SC SCH (09:13)
[2021-03-02] MEDS: Piperacillin/Tazobactam 3.375 GM in Sodium Chloride 0.9% 100 ML IVPB SCH (09:14)
[2021-03-02 13:33] VITALS: BMI 26.7
[2021-03-02 15:09] LABS: #Eosinphils 0.8 thou/uL (0.0-0.7); #Lymphocytes 2.6 thou/uL (1.20-3.40); #Monocytes 1.8 thou/uL (0.11-0.59); #Neutrophils 22.3 thou/uL (1.40-6.50); %Basophils 0.1 % (0.0-1.0); %Eosinophils 2.7 % (0.0-10.0); %Lymphocytes 9.5 % (21.0-51.0); %Monocytes 6.5 % (0.0-10.0); %Neutrophils 81.2 % (42.0-75.0); Hemoglobin 9.9 g/dL (14.0-18.0); Mean Corpuscular HGB CONC 34.9 g/dL (32.0-36.0); Mean Corpuscular Hemoglobin 31.4 pg (27.0-31.0); Mean Corpuscular Volume 89.9 fL (78.0-98.0); Mean Platelet Volume 8.7 fL (7.4-10.4); Platelet Count 174 thou/uL (130-400); Red Blood Cell (RBC) Count 3.15 mill/uL (4.70-6.10); White Blood Cell (WBC) Count 27.5 thou/uL (4.8-10.8)
[2021-03-02 16:20] LABS: Anion Gap 16 mmol/L (10-20); BUN (Urea Nitrogen) 49 mg/dL (8.4-25.7); Calc. Creatinine Clearance 37 mL/min (70-130); Calcium 8.4 mg/dL (7.8-10.44); Carbon Dioxide 12 mmol/L (23-31); Chloride 113 mmol/L (98-107); Glucose 152 mg/dL (83-110); Potassium 4.9 mmol/L (3.5-5.1); Sodium 136 mmol/L (136-145)
[2021-03-02] MEDS: Acetaminophen 325 MG TAB PO PRN (16:32)
[2021-03-02] MEDS: HumaLOG 300 UNITS/3 ML VIAL SC PRN ×2 (16:57→21:36)
[2021-03-02] MEDS: Sodium Bicarbonate 150 MEQ in Dextrose 5% in Water 1,000 ML IV SCH (19:10)
[2021-03-02] MEDS: Ezetimibe 10 MG TAB PO SCH (20:15)
[2021-03-03] MEDS ORDERED: Vancomycin HCl 1 GM in Sodium Chloride 0.9% 250 ML 0 ML IVPB SCH (03:00)
[2021-03-03] MEDS: Levothyroxine Sodium 112 MCG TAB PO SCH (05:51)
[2021-03-03] MEDS: MEROPENEM 1 GM/50 ML 1 GM in Premix Bag 1 BAG IVPB SCH ×2 (05:52→21:21)
[2021-03-03] MEDS: HumaLOG 300 UNITS/3 ML VIAL SC PRN ×2 (06:32→17:15)
[2021-03-03 08:59] LABS: #Basophils 0.1 thou/uL (0.0-0.2); #Eosinphils 0.7 thou/uL (0.0-0.7); #Lymphocytes 2.3 thou/uL (1.20-3.40); #Monocytes 0.5 thou/uL (0.11-0.59); #Neutrophils 9.2 thou/uL (1.40-6.50); %Basophils 0.4 % (0.0-1.0); %Eosinophils 5.4 % (0.0-10.0); %Lymphocytes 17.8 % (21.0-51.0); %Monocytes 4.1 % (0.0-10.0); %Neutrophils 72.4 % (42.0-75.0); Hemoglobin 11.3 g/dL (14.0-18.0); Mean Corpuscular HGB CONC 34.1 g/dL (32.0-36.0); Mean Corpuscular Volume 90.7 fL (78.0-98.0); Mean Platelet Volume 7.9 fL (7.4-10.4); Platelet Count 153 thou/uL (130-400); RBC Distribution Width 11.9 % (11.5-14.5); Red Blood Cell (RBC) Count 3.66 mill/uL (4.70-6.10); White Blood Cell (WBC) Count 12.6 thou/uL (4.8-10.8)
[2021-03-03 09:21] LABS: Anion Gap 11 mmol/L (10-20); BUN (Urea Nitrogen) 35 mg/dL (8.4-25.7); CRP (Inflammatory) 5.26 mg/dL (= or < 0.5); Calc. Creatinine Clearance 47 mL/min (70-130); Carbon Dioxide 18 mmol/L (23-31); Chloride 107 mmol/L (98-107); Glucose 160 mg/dL (83-110); Magnesium 1.6 mg/dL (1.6-2.6); Phosphorus 2.1 mg/dL (2.3-4.7); Potassium 3.9 mmol/L (3.5-5.1); Sodium 132 mmol/L (136-145)
[2021-03-03] MEDS: Enoxaparin Sodium 30 MG/0.3 ML SYRINGE SC SCH (09:54)
[2021-03-03] MEDS: Finasteride 5 MG TAB PO SCH (09:54)
[2021-03-03] MEDS: Saccharomyces boulardii 250 MG CAP PO SCH (09:54)
[2021-03-03] MEDS: Aspirin Chewable 81 MG TAB PO SCH (09:54)
[2021-03-03] MEDS: Metoprolol Tartrate 25 MG TAB PO SCH ×2 (09:54→20:38)
[2021-03-03] MEDS: Sodium Bicarbonate 150 MEQ in Dextrose 5% in Water 1,000 ML IV SCH ×2 (10:59→21:27)
[2021-03-03] MEDS ORDERED: Magnesium Sulfate 3 GM in Sodium Chloride 0.9% 100 ML IVPB SCH (13:00)
[2021-03-03] MEDS ORDERED: K-Phos Neutral 250 MG TAB PO SCH (13:00)
[2021-03-03] MEDS ORDERED: Amlodipine 5 MG TAB PO SCH (16:15)
[2021-03-03] MEDS ORDERED: Potassium Chloride 20 MEQ TAB PO SCH (17:00)
[2021-03-03] MEDS: K-Phos Neutral 250 MG TAB PO SCH ×2 (17:23→20:38)
[2021-03-03] MEDS: Ezetimibe 10 MG TAB PO SCH (20:38)
[2021-03-03] MEDS: Lantus 1000 UNITS/10 ML VIAL SC SCH (21:22)
[2021-03-04 04:39] LABS: #Basophils 0.1 thou/uL (0.0-0.2); #Eosinphils 0.6 thou/uL (0.0-0.7); #Lymphocytes 2.5 thou/uL (1.20-3.40); #Monocytes 0.6 thou/uL (0.11-0.59); #Neutrophils 8.4 thou/uL (1.40-6.50); %Basophils 0.4 % (0.0-1.0); %Lymphocytes 20.2 % (21.0-51.0); %Neutrophils 69.4 % (42.0-75.0); Hemoglobin 12.2 g/dL (14.0-18.0); Mean Corpuscular HGB CONC 35.7 g/dL (32.0-36.0); Mean Corpuscular Hemoglobin 31.8 pg (27.0-31.0); Mean Platelet Volume 8.1 fL (7.4-10.4); Platelet Count 165 thou/uL (130-400); RBC Distribution Width 11.8 % (11.5-14.5); Red Blood Cell (RBC) Count 3.82 mill/uL (4.70-6.10); White Blood Cell (WBC) Count 12.1 thou/uL (4.8-10.8)
[2021-03-04 05:01] LABS: Anion Gap 12 mmol/L (10-20); BUN (Urea Nitrogen) 24 mg/dL (8.4-25.7); Calc. Creatinine Clearance 57 mL/min (70-130); Calcium 8.7 mg/dL (7.8-10.44); Carbon Dioxide 23 mmol/L (23-31); Chloride 102 mmol/L (98-107); Glucose 205 mg/dL (83-110); Magnesium 1.9 mg/dL (1.6-2.6); Phosphorus 2.7 mg/dL (2.3-4.7); Sodium 133 mmol/L (136-145)
[2021-03-04] MEDS: Levothyroxine Sodium 112 MCG TAB PO SCH (05:53)
[2021-03-04] MEDS: MEROPENEM 1 GM/50 ML 1 GM in Premix Bag 1 BAG IVPB SCH ×2 (05:53→20:55)
[2021-03-04] MEDS: HumaLOG 300 UNITS/3 ML VIAL SC PRN ×2 (05:53→20:56)
[2021-03-04] MEDS: Saccharomyces boulardii 250 MG CAP PO SCH (08:11)
[2021-03-04] MEDS: Amlodipine 5 MG TAB PO SCH (08:12)
[2021-03-04] MEDS: K-Phos Neutral 250 MG TAB PO SCH ×3 (08:13→20:55)
[2021-03-04] MEDS: Enoxaparin Sodium 40 MG/0.4 ML SYRINGE SC SCH (08:13)
[2021-03-04] MEDS: Aspirin Chewable 81 MG TAB PO SCH (08:13)
[2021-03-04] MEDS: Metoprolol Tartrate 25 MG TAB PO SCH ×2 (08:13→20:54)
[2021-03-04] MEDS: Finasteride 5 MG TAB PO SCH (08:13)
[2021-03-04] MEDS: Sodium Bicarbonate 150 MEQ in Dextrose 5% in Water 1,000 ML IV SCH (18:27)
[2021-03-04] MEDS: Ezetimibe 10 MG TAB PO SCH (20:53)
[2021-03-04] MEDS: Lantus 1000 UNITS/10 ML VIAL SC SCH (20:56)
[2021-03-04] MEDS ORDERED: hydrOXYzine 25 MG TAB PO SCH (22:12)
[2021-03-04] MEDS: Sodium Chloride 0.9% 1,000 ML IV SCH (23:23)
[2021-03-05] MEDS: hydrALAZINE 20 MG/ML VIAL SLOW IVP PRN (04:51)
[2021-03-05] MEDS: MEROPENEM 1 GM/50 ML 1 GM in Premix Bag 1 BAG IVPB SCH (05:06)
[2021-03-05] MEDS: Levothyroxine Sodium 112 MCG TAB PO SCH (05:06)
[2021-03-05 06:23] LABS: #Basophils 0.1 thou/uL (0.0-0.2); #Eosinphils 0.6 thou/uL (0.0-0.7); #Lymphocytes 2.5 thou/uL (1.20-3.40); #Monocytes 0.7 thou/uL (0.11-0.59); #Neutrophils 5.4 thou/uL (1.40-6.50); %Basophils 0.8 % (0.0-1.0); %Eosinophils 6.3 % (0.0-10.0); %Lymphocytes 27.1 % (21.0-51.0); %Monocytes 7.4 % (0.0-10.0); %Neutrophils 58.4 % (42.0-75.0); Hemoglobin 12.8 g/dL (14.0-18.0); Mean Corpuscular HGB CONC 35.9 g/dL (32.0-36.0); Mean Corpuscular Hemoglobin 31.8 pg (27.0-31.0); Mean Corpuscular Volume 88.5 fL (78.0-98.0); Platelet Count 190 thou/uL (130-400); RBC Distribution Width 11.5 % (11.5-14.5); Red Blood Cell (RBC) Count 4.03 mill/uL (4.70-6.10); White Blood Cell (WBC) Count 9.3 thou/uL (4.8-10.8)
[2021-03-05 06:53] LABS: Anion Gap 14 mmol/L (10-20); BUN (Urea Nitrogen) 14 mg/dL (8.4-25.7); Calc. Creatinine Clearance 66 mL/min (70-130); Calcium 8.9 mg/dL (7.8-10.44); Carbon Dioxide 23 mmol/L (23-31); Chloride 104 mmol/L (98-107); Glucose 138 mg/dL (83-110); Sodium 137 mmol/L (136-145)
[2021-03-05] MEDS: Amlodipine 5 MG TAB PO SCH ×2 (10:59→20:16)
[2021-03-05] MEDS: Enoxaparin Sodium 40 MG/0.4 ML SYRINGE SC SCH (11:49)
[2021-03-05] MEDS: Aspirin Chewable 81 MG TAB PO SCH (11:50)
[2021-03-05] MEDS: Saccharomyces boulardii 250 MG CAP PO SCH (11:50)
[2021-03-05] MEDS: Metoprolol Tartrate 25 MG TAB PO SCH ×2 (11:51→20:15)
[2021-03-05] MEDS: Finasteride 5 MG TAB PO SCH (11:51)
[2021-03-05] MEDS: K-Phos Neutral 250 MG TAB PO SCH ×5 (11:55→20:15)
[2021-03-05] MEDS: AMOXicillin 250 MG CAP PO SCH ×2 (15:45→20:16)
[2021-03-05] MEDS: HumaLOG 300 UNITS/3 ML VIAL SC PRN (16:14)
[2021-03-05] MEDS: Sodium Chloride 0.9% 1,000 ML IV SCH (20:12)
[2021-03-05] MEDS: Ezetimibe 10 MG TAB PO SCH (20:16)
[2021-03-05] MEDS ORDERED: Melatonin 3 MG TAB PO PRN (21:00)
[2021-03-06] MEDS: hydrALAZINE 20 MG/ML VIAL SLOW IVP PRN (05:35)
[2021-03-06] MEDS: Levothyroxine Sodium 112 MCG TAB PO SCH (05:35)
[2021-03-06 07:05] LABS: #Basophils 0.1 thou/uL (0.0-0.2); #Eosinphils 0.7 thou/uL (0.0-0.7); #Lymphocytes 2.7 thou/uL (1.20-3.40); #Monocytes 0.8 thou/uL (0.11-0.59); #Neutrophils 6.2 thou/uL (1.40-6.50); %Basophils 0.6 % (0.0-1.0); %Eosinophils 6.8 % (0.0-10.0); %Lymphocytes 25.7 % (21.0-51.0); %Monocytes 7.4 % (0.0-10.0); %Neutrophils 59.5 % (42.0-75.0); Hemoglobin 12.7 g/dL (14.0-18.0); Mean Corpuscular HGB CONC 34.7 g/dL (32.0-36.0); Mean Corpuscular Volume 89.5 fL (78.0-98.0); Mean Platelet Volume 8.2 fL (7.4-10.4); Platelet Count 195 thou/uL (130-400); RBC Distribution Width 11.7 % (11.5-14.5); White Blood Cell (WBC) Count 10.3 thou/uL (4.8-10.8)
[2021-03-06 07:25] LABS: Anion Gap 11 mmol/L (10-20); BUN (Urea Nitrogen) 16 mg/dL (8.4-25.7); Calc. Creatinine Clearance 58 mL/min (70-130); Calcium 8.5 mg/dL (7.8-10.44); Carbon Dioxide 24 mmol/L (23-31); Chloride 105 mmol/L (98-107); Glucose 151 mg/dL (83-110); Magnesium 1.6 mg/dL (1.6-2.6); Potassium 4.1 mmol/L (3.5-5.1); Sodium 136 mmol/L (136-145)
[2021-03-06] MEDS: K-Phos Neutral 250 MG TAB PO SCH ×4 (10:10→21:02)
[2021-03-06] MEDS: AMOXicillin 250 MG CAP PO SCH ×3 (10:14→21:01)
[2021-03-06] MEDS: Aspirin Chewable 81 MG TAB PO SCH (10:16)
[2021-03-06] MEDS: Amlodipine 5 MG TAB PO SCH ×2 (10:17→21:02)
[2021-03-06] MEDS: Saccharomyces boulardii 250 MG CAP PO SCH (10:18)
[2021-03-06] MEDS: Finasteride 5 MG TAB PO SCH (10:20)
[2021-03-06] MEDS: Enoxaparin Sodium 40 MG/0.4 ML SYRINGE SC SCH (10:20)
[2021-03-06] MEDS: Metoprolol Tartrate 25 MG TAB PO SCH ×2 (10:20→21:02)
[2021-03-06] MEDS: Sodium Chloride 0.9% 1,000 ML IV SCH (19:08)
[2021-03-06] MEDS: Ezetimibe 10 MG TAB PO SCH (21:02)
[2021-03-06] MEDS: HumaLOG 300 UNITS/3 ML VIAL SC PRN (21:04)
[2021-03-07] MEDS: HumaLOG 300 UNITS/3 ML VIAL SC PRN ×4 (06:10→21:12)
[2021-03-07] MEDS: Levothyroxine Sodium 112 MCG TAB PO SCH (06:10)
[2021-03-07] MEDS ORDERED: NATEGLINIDE 60 MG PO SCH (07:30)
[2021-03-07 07:45] LABS: Anion Gap 11 mmol/L (10-20); BUN (Urea Nitrogen) 19 mg/dL (8.4-25.7); Calc. Creatinine Clearance 58 mL/min (70-130); Calcium 8.4 mg/dL (7.8-10.44); Carbon Dioxide 22 mmol/L (23-31); Chloride 103 mmol/L (98-107); Glucose 162 mg/dL (83-110); Potassium 3.8 mmol/L (3.5-5.1); Sodium 132 mmol/L (136-145)
[2021-03-07 08:17] LABS: #Basophils 0.1 thou/uL (0.0-0.2); #Eosinphils 0.6 thou/uL (0.0-0.7); #Lymphocytes 2.4 thou/uL (1.20-3.40); #Monocytes 0.7 thou/uL (0.11-0.59); #Neutrophils 4.3 thou/uL (1.40-6.50); %Basophils 0.7 % (0.0-1.0); %Eosinophils 7.7 % (0.0-10.0); %Monocytes 8.3 % (0.0-10.0); %Neutrophils 53.3 % (42.0-75.0); Hemoglobin 11.8 g/dL (14.0-18.0); Mean Corpuscular HGB CONC 34.6 g/dL (32.0-36.0); Mean Corpuscular Hemoglobin 31.2 pg (27.0-31.0); Mean Corpuscular Volume 90.2 fL (78.0-98.0); Mean Platelet Volume 7.9 fL (7.4-10.4); Platelet Count 202 thou/uL (130-400); RBC Distribution Width 11.8 % (11.5-14.5); Red Blood Cell (RBC) Count 3.77 mill/uL (4.70-6.10); White Blood Cell (WBC) Count 8.1 thou/uL (4.8-10.8)
[2021-03-07] MEDS: Metoprolol Tartrate 25 MG TAB PO SCH ×2 (09:01→21:10)
[2021-03-07] MEDS: Aspirin Chewable 81 MG TAB PO SCH (09:01)
[2021-03-07] MEDS: AMOXicillin 250 MG CAP PO SCH ×3 (09:01→21:10)
[2021-03-07] MEDS: Finasteride 5 MG TAB PO SCH (09:01)
[2021-03-07] MEDS: K-Phos Neutral 250 MG TAB PO SCH ×4 (09:01→21:11)
[2021-03-07] MEDS: Saccharomyces boulardii 250 MG CAP PO SCH (09:01)
[2021-03-07] MEDS: Amlodipine 5 MG TAB PO SCH ×2 (09:01→21:11)
[2021-03-07] MEDS: Enoxaparin Sodium 40 MG/0.4 ML SYRINGE SC SCH (09:02)
[2021-03-07] MEDS: Alogliptin 25 MG TAB PO SCH (09:04)
[2021-03-07] MEDS: Sodium Chloride 0.9% 1,000 ML IV SCH ×2 (10:16→21:50)
[2021-03-07] MEDS: Acetaminophen 325 MG TAB PO PRN ×2 (13:08→21:11)
[2021-03-07] MEDS: Ezetimibe 10 MG TAB PO SCH (21:11)
[2021-03-08] MEDS: Levothyroxine Sodium 112 MCG TAB PO SCH (05:45)
[2021-03-08 07:56] VITALS: BP 167/87; TEMP 98.1
[2021-03-08] MEDS: Alogliptin 25 MG TAB PO SCH (09:25)
[2021-03-08] MEDS: K-Phos Neutral 250 MG TAB PO SCH ×2 (09:25→13:08)
[2021-03-08] MEDS: Metoprolol Tartrate 25 MG TAB PO SCH (09:25)
[2021-03-08] MEDS: Finasteride 5 MG TAB PO SCH (09:25)
[2021-03-08] MEDS: Enoxaparin Sodium 40 MG/0.4 ML SYRINGE SC SCH (09:25)
[2021-03-08] MEDS: Amlodipine 5 MG TAB PO SCH (09:25)
[2021-03-08] MEDS: Aspirin Chewable 81 MG TAB PO SCH (09:25)
[2021-03-08] MEDS: Saccharomyces boulardii 250 MG CAP PO SCH (09:25)
[2021-03-08] MEDS: AMOXicillin 250 MG CAP PO SCH ×2 (09:28→15:44)
[2021-03-08] MEDS: HumaLOG 300 UNITS/3 ML VIAL SC PRN (13:08)
== END 2021-03-08 16:36 | disposition hospice, home (50) | DRG 698 ==
LOC: ERS 21:30 → ERHOLD 03-01 00:06 → 2SE 03-01 09:59 → 2NO 03-02 17:36 → T4-B 03-04 17:40
PROVIDERS: ADMIT Student in an Organized Health Care Education/Training Program; ATTEND Internal Medicine
DX: T83.518A Infection and inflammatory reaction due to other urinary catheter, initial encounter (principal); A41.51 Sepsis due to Escherichia coli [E. coli]; J96.01 Acute respiratory failure with hypoxia; J18.9 Pneumonia, unspecified organism; G92.8 Other toxic encephalopathy; R65.20 Severe sepsis without septic shock; N17.9 Acute kidney failure, unspecified; F02.81 Dementia in other diseases classified elsewhere, unspecified severity, with behavioral disturbance; E87.1 Hypo-osmolality and hyponatremia; Z16.12 Extended spectrum beta lactamase (ESBL) resistance; E87.2 Acidosis; Z51.5 Encounter for palliative care; Z66 Do not resuscitate; Z20.822 Contact with and (suspected) exposure to COVID-19; N30.90 Cystitis, unspecified without hematuria; N40.1 Benign prostatic hyperplasia with lower urinary tract symptoms; R39.11 Hesitancy of micturition; E11.42 Type 2 diabetes mellitus with diabetic polyneuropathy; G30.9 Alzheimer's disease, unspecified; E03.9 Hypothyroidism, unspecified; K21.9 Gastro-esophageal reflux disease without esophagitis; Z96.21 Cochlear implant status; K21.00 Gastro-esophageal reflux disease with esophagitis, without bleeding; I12.9 Hypertensive chronic kidney disease with stage 1 through stage 4 chronic kidney disease, or unspecified chronic kidney disease; E11.22 Type 2 diabetes mellitus with diabetic chronic kidney disease; E78.00 Pure hypercholesterolemia, unspecified; R33.8 Other retention of urine; Z96.649 Presence of unspecified artificial hip joint; J43.9 Emphysema, unspecified; N18.30 Chronic kidney disease, stage 3 unspecified; F41.9 Anxiety disorder, unspecified; E78.5 Hyperlipidemia, unspecified; D63.1 Anemia in chronic kidney disease; E87.6 Hypokalemia; E83.42 Hypomagnesemia; Y84.6 Urinary catheterization as the cause of abnormal reaction of the patient, or of later complication, without mention of misadventure at the time of the procedure; D53.9 Nutritional anemia, unspecified; Z98.42 Cataract extraction status, left eye; Z98.41 Cataract extraction status, right eye; Z87.891 Personal history of nicotine dependence; Z88.1 Allergy status to other antibiotic agents; Z91.048 Other nonmedicinal substance allergy status; Z79.899 Other long term (current) drug therapy; Z79.82 Long term (current) use of aspirin; Z79.4 Long term (current) use of insulin; Z79.890 Hormone replacement therapy; Z87.440 Personal history of urinary (tract) infections; Z85.51 Personal history of malignant neoplasm of bladder
CPT/HCPCS: 0240U; 36415; 36416; 70450; 71045; 71275; 76770; 80048; 80053; 80202; 81003; 81015; 83605; 83735; 84100; 84484; 85025; 85379; 86140; 87040; 87077; 87086; 87186; 93005; 96365; 96366; 96367; J0360; J1650; J1815; J2185; J2543; J3370; J3475; J3490; J7050; J7070; Q9967

== ENCOUNTER 2021-05-16 23:04 | Inpatient (IN) | payer MEDICARE ==
[2021-05-17 00:04] LABS: #Eosinphils 0.4 thou/uL (0.0-0.7); #Lymphocytes 1.1 thou/uL (1.20-3.40); #Monocytes 0.7 thou/uL (0.11-0.59); #Neutrophils 9.6 thou/uL (1.40-6.50); %Basophils 0.1 % (0.0-1.0); %Eosinophils 3.4 % (0.0-10.0); %Monocytes 6.1 % (0.0-10.0); %Neutrophils 81.4 % (42.0-75.0); Hemoglobin 12.3 g/dL (14.0-18.0); Mean Corpuscular HGB CONC 34.8 g/dL (32.0-36.0); Mean Corpuscular Hemoglobin 32.1 pg (27.0-31.0); Mean Corpuscular Volume 92.3 fL (78.0-98.0); Mean Platelet Volume 7.3 fL (7.4-10.4); Platelet Count 217 thou/uL (130-400); RBC Distribution Width 11.9 % (11.5-14.5); Red Blood Cell (RBC) Count 3.84 mill/uL (4.70-6.10); White Blood Cell (WBC) Count 11.7 thou/uL (4.8-10.8)
[2021-05-17 00:31] LABS: Bacteria/HPF 2+ HPF (None Seen); Bilirubin Negative (Negative); Blood, Urine 2+ (Negative); Clarity Extra Turbid (Clear); Glucose, Urine (Dipstick) >=1000 mg/dL (Negative); Ketone, Urine Negative (Negative); Leukocyte 500 Leu/uL (Negative); Nitrite 1+ (Negative); Protein, Urine (Dipstick) 100 mg/dL (Neg-Trace); RBC/HPF 21-50 HPF (0-3); Specific Gravity, Urine 1.014 (1.002-1.036); Urobilinogen Normal mg/dL (Less than 2); WBC/HPF Greater than 50 HPF (0-3)
[2021-05-17 00:51] LABS: ALT (SGPT) 293 U/L (8-55); AST (SGOT) 170 U/L (5-34); Albumin 3.3 g/dL (3.4-4.8); Alkaline Phosphatase 529 U/L (40-110); Anion Gap 16 mmol/L (10-20); BUN (Urea Nitrogen) 32 mg/dL (8.4-25.7); Bilirubin, Total 0.4 mg/dL (0.2-1.2); Calc. Creatinine Clearance 0 mL/min (70-130); Calcium 8.9 mg/dL (7.8-10.44); Carbon Dioxide 18 mmol/L (23-31); Chloride 98 mmol/L (98-107); Globulin 3.6 g/dL (2.4-3.5); Glucose 430 mg/dL (83-110); Potassium 4.8 mmol/L (3.5-5.1); Protein, Total 6.9 g/dL (5.8-8.1); Sodium 127 mmol/L (136-145)
[2021-05-17] MEDS ORDERED: Meropenem 1 GM in Sodium Chloride 0.9% 100 ML IVPB SCH (01:30)
[2021-05-17] MEDS ORDERED: Sodium Chloride 0.9% 1,000 ML IV SCH (01:30)
[2021-05-17 01:59] LABS: Acetaminophen Less than 6.0 mcg/mL (10.0-30.0)
[2021-05-17] MEDS ORDERED: hydrALAZINE 20 MG/ML VIAL SLOW IVP PRN ×2 (06:47→07:47)
[2021-05-17] MEDS ORDERED: Non-Formulary Item 1 EACH (Acetaminophen [Tylenol] 325 MG Capsule) PO PRN (07:37)
[2021-05-17] MEDS ORDERED: Famotidine 20 MG TAB PO PRN (07:37)
[2021-05-17] MEDS ORDERED: Dextrose 50% Abboject 50 ML SYRINGE SLOW IVP PRN (07:44)
[2021-05-17] MEDS ORDERED: Dextrose 5% in Water 1,000 ML IV PRN (07:44)
[2021-05-17] MEDS ORDERED: Metoclopramide HCl 10 MG/2 ML VIAL IVP PRN (07:47)
[2021-05-17] MEDS ORDERED: Acetaminophen 325 MG TAB PO PRN (08:12)
[2021-05-17] MEDS: Sodium Chloride 0.9% 1,000 ML IV SCH ×2 (08:19→22:03)
[2021-05-17] MEDS ORDERED: MEMANTINE HCL 21 MG PO SCH (09:00)
[2021-05-17] MEDS ORDERED: Levothyroxine Sodium 112 MCG TAB PO SCH (09:00)
[2021-05-17] MEDS ORDERED: Non-Formulary Item 1 EACH (Insulin Degludec [Tresiba] 100 UNIT/ML Vial) SQ SCH (09:00)
[2021-05-17] MEDS: Finasteride 5 MG TAB PO SCH (09:54)
[2021-05-17] MEDS: Amlodipine 5 MG TAB PO SCH ×2 (09:54→21:15)
[2021-05-17] MEDS: hydrOXYzine 10 MG TAB PO SCH ×2 (09:54→21:14)
[2021-05-17] MEDS: Aspirin Chewable 81 MG TAB PO SCH (09:54)
[2021-05-17] MEDS: Heparin 5,000 UNITS/ML VIAL SC SCH ×4 (09:57→21:14)
[2021-05-17] MEDS: Famotidine 20 MG TAB PO SCH (09:57)
[2021-05-17] MEDS: Lantus 1000 UNITS/10 ML VIAL SC SCH (10:06)
[2021-05-17 10:59] LABS: #Eosinphils 0.3 thou/uL (0.0-0.7); #Lymphocytes 1.5 thou/uL (1.20-3.40); #Monocytes 0.5 thou/uL (0.11-0.59); #Neutrophils 4.6 thou/uL (1.40-6.50); %Basophils 0.4 % (0.0-1.0); %Eosinophils 3.7 % (0.0-10.0); %Lymphocytes 21.6 % (21.0-51.0); %Monocytes 7.8 % (0.0-10.0); %Neutrophils 66.6 % (42.0-75.0); Hemoglobin 11.9 g/dL (14.0-18.0); Mean Corpuscular HGB CONC 34.1 g/dL (32.0-36.0); Mean Corpuscular Hemoglobin 31.3 pg (27.0-31.0); Mean Corpuscular Volume 91.8 fL (78.0-98.0); Mean Platelet Volume 7.7 fL (7.4-10.4); Platelet Count 234 thou/uL (130-400); RBC Distribution Width 11.9 % (11.5-14.5); Red Blood Cell (RBC) Count 3.81 mill/uL (4.70-6.10); White Blood Cell (WBC) Count 6.9 thou/uL (4.8-10.8)
[2021-05-17] MEDS: HumaLOG 300 UNITS/3 ML VIAL SC PRN (11:16)
[2021-05-17 11:18] LABS: Anion Gap 13 mmol/L (10-20); BUN (Urea Nitrogen) 28 mg/dL (8.4-25.7); Calc. Creatinine Clearance 45 mL/min (70-130); Calcium 9.4 mg/dL (7.8-10.44); Carbon Dioxide 20 mmol/L (23-31); Chloride 103 mmol/L (98-107); Glucose 296 mg/dL (83-110); Potassium 4.4 mmol/L (3.5-5.1); Sodium 132 mmol/L (136-145)
[2021-05-17] MEDS ORDERED: hydrALAZINE 20 MG/ML VIAL SLOW IVP SCH (11:45)
[2021-05-17] MEDS ORDERED: FLU VACC QS2021-22(65YR UP)/PF 240 MCG/0.7 ML SYRINGE IM ONE (14:00)
[2021-05-17] MEDS: Meropenem 1 GM in Sodium Chloride 0.9% 100 ML IVPB SCH (14:20)
[2021-05-17 17:44] LABS: SARS-CoV-2 PCR by NAA Not Detected (NotDetected)
[2021-05-17] MEDS ORDERED: Ezetimibe 10 MG TAB PO SCH (21:00)
[2021-05-18] MEDS: Meropenem 1 GM in Sodium Chloride 0.9% 100 ML IVPB SCH ×2 (02:26→16:14)
[2021-05-18] MEDS: hydrALAZINE 20 MG/ML VIAL SLOW IVP PRN (03:10)
[2021-05-18] MEDS: Levothyroxine Sodium 100 MCG TAB PO SCH (05:10)
[2021-05-18 05:16] VITALS: BMI 26.6
[2021-05-18 06:12] LABS: #Basophils 0.1 thou/uL (0.0-0.2); #Eosinphils 0.3 thou/uL (0.0-0.7); #Lymphocytes 1.8 thou/uL (1.20-3.40); #Monocytes 0.5 thou/uL (0.11-0.59); #Neutrophils 5.2 thou/uL (1.40-6.50); %Basophils 1.1 % (0.0-1.0); %Eosinophils 4.3 % (0.0-10.0); %Lymphocytes 22.9 % (21.0-51.0); %Monocytes 6.7 % (0.0-10.0); Hemoglobin 11.7 g/dL (14.0-18.0); Mean Corpuscular HGB CONC 34.8 g/dL (32.0-36.0); Mean Corpuscular Hemoglobin 31.7 pg (27.0-31.0); Mean Platelet Volume 7.2 fL (7.4-10.4); Platelet Count 250 thou/uL (130-400); RBC Distribution Width 11.9 % (11.5-14.5); Red Blood Cell (RBC) Count 3.68 mill/uL (4.70-6.10)
[2021-05-18 06:34] LABS: ALT (SGPT) 175 U/L (8-55); AST (SGOT) 72 U/L (5-34); Alkaline Phosphatase 402 U/L (40-110); Anion Gap 15 mmol/L (10-20); BUN (Urea Nitrogen) 22 mg/dL (8.4-25.7); Bilirubin, Direct 0.2 mg/dL (0.1-0.3); Bilirubin, Total 0.5 mg/dL (0.2-1.2); Calc. Creatinine Clearance 51 mL/min (70-130); Calcium 8.9 mg/dL (7.8-10.44); Carbon Dioxide 13 mmol/L (23-31); Chloride 109 mmol/L (98-107); Glucose 69 mg/dL (83-110); Potassium 4.1 mmol/L (3.5-5.1); Sodium 133 mmol/L (136-145)
[2021-05-18] MEDS: hydrOXYzine 10 MG TAB PO SCH ×2 (09:55→23:08)
[2021-05-18] MEDS: Famotidine 20 MG TAB PO SCH (09:55)
[2021-05-18] MEDS: Aspirin Chewable 81 MG TAB PO SCH (09:56)
[2021-05-18] MEDS: Amlodipine 5 MG TAB PO SCH ×2 (09:56→23:08)
[2021-05-18] MEDS: Finasteride 5 MG TAB PO SCH (09:56)
[2021-05-18] MEDS: Heparin 5,000 UNITS/ML VIAL SC SCH ×3 (10:15→23:07)
[2021-05-18] MEDS ORDERED: hydrALAZINE 25 MG TAB ONE (10:15)
[2021-05-18] MEDS: hydrALAZINE 25 MG TAB PO SCH ×3 (10:16→23:08)
[2021-05-18] MEDS: Lantus 1000 UNITS/10 ML VIAL SC SCH (11:02)
[2021-05-18] MEDS: HumaLOG 300 UNITS/3 ML VIAL SC PRN ×2 (11:06→23:07)
[2021-05-18] MEDS: Sodium Chloride 0.9% 1,000 ML IV SCH (16:12)
[2021-05-19] MEDS: Sodium Chloride 0.9% 1,000 ML IV SCH ×2 (00:55→11:19)
[2021-05-19] MEDS: Meropenem 1 GM in Sodium Chloride 0.9% 100 ML IVPB SCH ×2 (02:56→14:43)
[2021-05-19 05:18] LABS: #Basophils 0.1 thou/uL (0.0-0.2); #Eosinphils 0.5 thou/uL (0.0-0.7); #Lymphocytes 3.1 thou/uL (1.20-3.40); #Monocytes 0.7 thou/uL (0.11-0.59); #Neutrophils 3.5 thou/uL (1.40-6.50); %Basophils 1.2 % (0.0-1.0); %Eosinophils 5.8 % (0.0-10.0); %Lymphocytes 39.8 % (21.0-51.0); %Monocytes 9.2 % (0.0-10.0); %Neutrophils 44.1 % (42.0-75.0); Hemoglobin 11.7 g/dL (14.0-18.0); Mean Corpuscular HGB CONC 33.7 g/dL (32.0-36.0); Mean Corpuscular Hemoglobin 31.2 pg (27.0-31.0); Mean Corpuscular Volume 92.7 fL (78.0-98.0); Mean Platelet Volume 7.8 fL (7.4-10.4); Platelet Count 245 thou/uL (130-400); RBC Distribution Width 12.1 % (11.5-14.5); Red Blood Cell (RBC) Count 3.75 mill/uL (4.70-6.10); White Blood Cell (WBC) Count 7.8 thou/uL (4.8-10.8)
[2021-05-19 05:31] LABS: ALT (SGPT) 128 U/L (8-55); AST (SGOT) 47 U/L (5-34); Albumin 3.1 g/dL (3.4-4.8); Alkaline Phosphatase 373 U/L (40-110); Anion Gap 13 mmol/L (10-20); BUN (Urea Nitrogen) 25 mg/dL (8.4-25.7); Bilirubin, Total 0.4 mg/dL (0.2-1.2); Calc. Creatinine Clearance 45 mL/min (70-130); Calcium 8.9 mg/dL (7.8-10.44); Carbon Dioxide 18 mmol/L (23-31); Chloride 109 mmol/L (98-107); Globulin 3.8 g/dL (2.4-3.5); Glucose 72 mg/dL (83-110); Potassium 3.8 mmol/L (3.5-5.1); Protein, Total 6.9 g/dL (5.8-8.1); Sodium 136 mmol/L (136-145)
[2021-05-19] MEDS: Levothyroxine Sodium 100 MCG TAB PO SCH (05:36)
[2021-05-19] MEDS: Finasteride 5 MG TAB PO SCH (09:14)
[2021-05-19] MEDS: Aspirin Chewable 81 MG TAB PO SCH (09:14)
[2021-05-19] MEDS: Amlodipine 5 MG TAB PO SCH ×2 (09:14→21:30)
[2021-05-19] MEDS: hydrOXYzine 10 MG TAB PO SCH ×2 (09:14→21:29)
[2021-05-19] MEDS: Heparin 5,000 UNITS/ML VIAL SC SCH ×3 (09:15→21:28)
[2021-05-19] MEDS: Famotidine 20 MG TAB PO SCH (09:15)
[2021-05-19] MEDS: hydrALAZINE 25 MG TAB PO SCH ×3 (09:15→21:29)
[2021-05-19] MEDS: Lantus 1000 UNITS/10 ML VIAL SC SCH (11:19)
[2021-05-19] MEDS: hydrALAZINE 20 MG/ML VIAL SLOW IVP PRN (21:28)
[2021-05-20] MEDS: Sodium Chloride 0.9% 1,000 ML IV SCH ×2 (03:18→15:25)
[2021-05-20] MEDS: Meropenem 1 GM in Sodium Chloride 0.9% 100 ML IVPB SCH ×2 (03:18→13:52)
[2021-05-20] MEDS: Levothyroxine Sodium 100 MCG TAB PO SCH (05:44)
[2021-05-20] MEDS: Amlodipine 5 MG TAB PO SCH ×2 (09:33→21:49)
[2021-05-20] MEDS: Finasteride 5 MG TAB PO SCH (09:34)
[2021-05-20] MEDS: hydrOXYzine 10 MG TAB PO SCH ×2 (09:34→21:47)
[2021-05-20] MEDS: Famotidine 20 MG TAB PO SCH (09:34)
[2021-05-20] MEDS: Aspirin Chewable 81 MG TAB PO SCH (09:34)
[2021-05-20] MEDS: Heparin 5,000 UNITS/ML VIAL SC SCH ×3 (09:35→21:49)
[2021-05-20] MEDS: hydrALAZINE 25 MG TAB PO SCH ×3 (09:35→21:48)
[2021-05-20] MEDS: Lantus 1000 UNITS/10 ML VIAL SC SCH (09:36)
[2021-05-20] MEDS: hydrALAZINE 20 MG/ML VIAL SLOW IVP PRN ×2 (09:41→13:52)
[2021-05-20] MEDS: HumaLOG 300 UNITS/3 ML VIAL SC PRN ×2 (11:08→18:08)
[2021-05-21] MEDS: Meropenem 1 GM in Sodium Chloride 0.9% 100 ML IVPB SCH ×2 (03:38→15:45)
[2021-05-21] MEDS: Levothyroxine Sodium 100 MCG TAB PO SCH (05:16)
[2021-05-21] MEDS: Sodium Chloride 0.9% 1,000 ML IV SCH (05:17)
[2021-05-21 06:13] LABS: Anion Gap 13 mmol/L (10-20); BUN (Urea Nitrogen) 19 mg/dL (8.4-25.7); Calc. Creatinine Clearance 53 mL/min (70-130); Calcium 9.1 mg/dL (7.8-10.44); Carbon Dioxide 15 mmol/L (23-31); Chloride 107 mmol/L (98-107); Glucose 84 mg/dL (83-110); Potassium 4.1 mmol/L (3.5-5.1); Sodium 131 mmol/L (136-145)
[2021-05-21 08:39] LABS: Band 14 % (5-11); Eosinophils 8 % (0-10); Hemoglobin 12.1 g/dL (14.0-18.0); Lymphocytes 25 % (21-51); MDiff Complete? YES; Mean Corpuscular HGB CONC 31.8 g/dL (32.0-36.0); Mean Corpuscular Volume 94.3 fL (78.0-98.0); Mean Platelet Volume 7.1 fL (7.4-10.4); Monocytes 4 % (0-10); Neutrophil 45 % (42-75); Platelet Count 279 thou/uL (130-400); Platelet Morphology Comment Appears Adequate; Polychromasia SLIGHT = 2-3 cells (100X) (0-2/hpf); Reactive Lymphocytes 4 % (0-10); Red Blood Cell (RBC) Count 4.05 mill/uL (4.70-6.10); White Blood Cell (WBC) Count 8.1 thou/uL (4.8-10.8)
[2021-05-21] MEDS: Amlodipine 5 MG TAB PO SCH ×2 (09:57)
[2021-05-21] MEDS: Finasteride 5 MG TAB PO SCH (09:57)
[2021-05-21] MEDS: Aspirin Chewable 81 MG TAB PO SCH (09:57)
[2021-05-21] MEDS: hydrOXYzine 10 MG TAB PO SCH ×2 (09:57→20:59)
[2021-05-21] MEDS: Famotidine 20 MG TAB PO SCH (09:58)
[2021-05-21] MEDS: hydrALAZINE 25 MG TAB PO SCH ×3 (09:58→23:00)
[2021-05-21] MEDS: Heparin 5,000 UNITS/ML VIAL SC SCH ×3 (09:58→20:56)
[2021-05-21] MEDS: Lantus 1000 UNITS/10 ML VIAL SC SCH (09:59)
[2021-05-21] MEDS: HumaLOG 300 UNITS/3 ML VIAL SC PRN ×3 (11:37→20:58)
[2021-05-22] MEDS: Meropenem 1 GM in Sodium Chloride 0.9% 100 ML IVPB SCH ×2 (02:09→11:44)
[2021-05-22] MEDS: Levothyroxine Sodium 100 MCG TAB PO SCH (05:38)
[2021-05-22] MEDS ORDERED: NIFEdipine XL 90 MG TAB PO SCH ×2 (10:04→10:15)
[2021-05-22] MEDS: Finasteride 5 MG TAB PO SCH (10:06)
[2021-05-22] MEDS: Famotidine 20 MG TAB PO SCH (10:07)
[2021-05-22] MEDS: hydrALAZINE 25 MG TAB PO SCH ×2 (10:07→15:56)
[2021-05-22] MEDS: Heparin 5,000 UNITS/ML VIAL SC SCH ×2 (10:07→15:56)
[2021-05-22] MEDS: hydrOXYzine 10 MG TAB PO SCH (10:07)
[2021-05-22] MEDS: Aspirin Chewable 81 MG TAB PO SCH (10:07)
[2021-05-22] MEDS: Lantus 1000 UNITS/10 ML VIAL SC SCH (10:10)
[2021-05-22] MEDS: Amlodipine 5 MG TAB PO SCH (10:15)
[2021-05-22 11:43] VITALS: TEMP 97.8
[2021-05-22] MEDS: HumaLOG 300 UNITS/3 ML VIAL SC PRN ×2 (11:44→16:11)
[2021-05-22 15:55] VITALS: BP 118/68
[2021-05-23] MEDS ORDERED: NIFEdipine XL 90 MG TAB PO SCH (09:00)
== END 2021-05-22 18:38 | DRG 698 ==
LOC: ERS 23:04 → 2NO 05-17 01:19 → OBSVTOIN 05-17 01:20
PROVIDERS: ADMIT Internal Medicine; ATTEND Internal Medicine
PROC: 4A10X4Z Monitoring of Central Nervous Electrical Activity, External Approach (ICD-10-PCS; principal; 2021-05-17)
DX: T83.511A Infection and inflammatory reaction due to indwelling urethral catheter, initial encounter (principal); G92.8 Other toxic encephalopathy; N17.9 Acute kidney failure, unspecified; E87.1 Hypo-osmolality and hyponatremia; Z16.24 Resistance to multiple antibiotics; N13.8 Other obstructive and reflux uropathy; N39.0 Urinary tract infection, site not specified; E03.9 Hypothyroidism, unspecified; K21.9 Gastro-esophageal reflux disease without esophagitis; G62.9 Polyneuropathy, unspecified; G30.9 Alzheimer's disease, unspecified; F02.80 Dementia in other diseases classified elsewhere, unspecified severity, without behavioral disturbance, psychotic disturbance, mood disturbance, and anxiety; E78.5 Hyperlipidemia, unspecified; D64.9 Anemia, unspecified; I44.0 Atrioventricular block, first degree; N40.1 Benign prostatic hyperplasia with lower urinary tract symptoms; N18.9 Chronic kidney disease, unspecified; Z66 Do not resuscitate; E86.0 Dehydration; B96.89 Other specified bacterial agents as the cause of diseases classified elsewhere; Z20.822 Contact with and (suspected) exposure to COVID-19; I12.9 Hypertensive chronic kidney disease with stage 1 through stage 4 chronic kidney disease, or unspecified chronic kidney disease; Z87.891 Personal history of nicotine dependence; Y83.8 Other surgical procedures as the cause of abnormal reaction of the patient, or of later complication, without mention of misadventure at the time of the procedure
CPT/HCPCS: 36415; 36416; 51701; 71045; 76705; 76770; 80048; 80053; 80076; 80143; 81003; 81015; 82140; 83605; 83880; 84443; 84484; 85025; 87040; 87077; 87086; 87186; 93005; 95816; 95819; 95957; 96365; 80307; J0360; J1644; J1815; J2185; J3490; J7050; U0003; U0005

== ENCOUNTER 2021-12-01 19:27 | Inpatient (IN) | payer MEDICARE ==
[2021-12-02] MEDS ORDERED: Ondansetron PF 4 MG/2 ML Vial IVP PRN (00:26)
[2021-12-02] MEDS ORDERED: Acetaminophen 325 MG TAB PO PRN (00:26)
[2021-12-02] MEDS ORDERED: Dextrose 5% in Water 1,000 ML IV PRN (00:31)
[2021-12-02] MEDS ORDERED: Dextrose 50% Abboject 50 ML SYRINGE SLOW IVP PRN (00:31)
[2021-12-02] MEDS ORDERED: HumaLOG 300 UNITS/3 ML VIAL SC PRN ×2 (00:31)
[2021-12-02 01:17] VITALS: BMI 25.4
[2021-12-02 01:40] LABS: #Eosinphils 0.5 thou/uL (0.0-0.7); #Lymphocytes 1.4 thou/uL (1.20-3.40); #Monocytes 0.4 thou/uL (0.11-0.59); #Neutrophils 2.9 thou/uL (1.40-6.50); %Basophils 0.7 % (0.0-1.0); %Eosinophils 9.6 % (0.0-10.0); %Lymphocytes 26.5 % (21.0-51.0); %Neutrophils 55.1 % (42.0-75.0); Hemoglobin 7.3 g/dL (14.0-18.0); Mean Corpuscular HGB CONC 33.8 g/dL (32.0-36.0); Mean Corpuscular Hemoglobin 29.4 pg (27.0-31.0); Mean Corpuscular Volume 86.9 fL (78.0-98.0); Mean Platelet Volume 8.3 fL (7.4-10.4); Platelet Count 276 thou/uL (130-400); RBC Distribution Width 13.8 % (11.5-14.5); Red Blood Cell (RBC) Count 2.48 mill/uL (4.70-6.10); White Blood Cell (WBC) Count 5.2 thou/uL (4.8-10.8)
[2021-12-02 01:48] LABS: AST (SGOT) 14 U/L (5-34); Albumin 3.1 g/dL (3.4-4.8); Anion Gap 14 mmol/L (10-20); BUN (Urea Nitrogen) 36 mg/dL (8.4-25.7); Bilirubin, Total 0.2 mg/dL (0.2-1.2); Calc. Creatinine Clearance 40 mL/min (70-130); Calcium 8.6 mg/dL (7.8-10.44); Carbon Dioxide 17 mmol/L (23-31); Chloride 109 mmol/L (98-107); Estimated GFR 40; Globulin 3.6 g/dL (2.4-3.5); Glucose 163 mg/dL (83-110); Iron 16 ug/dL (65-175); Iron Binding Capacity, Total 245 mcg/dL (261-462); Potassium 4.6 mmol/L (3.5-5.1); Protein, Total 6.7 g/dL (5.8-8.1); Sodium 135 mmol/L (136-145)
[2021-12-02 03:01] LABS: ALT (SGPT) 10 U/L (8-55); Alkaline Phosphatase 85 U/L (40-110)
[2021-12-02 05:26] LABS: #Eosinphils 0.6 thou/uL (0.0-0.7); #Lymphocytes 1.7 thou/uL (1.20-3.40); #Monocytes 0.5 thou/uL (0.11-0.59); #Neutrophils 2.8 thou/uL (1.40-6.50); %Basophils 0.6 % (0.0-1.0); %Eosinophils 10.4 % (0.0-10.0); %Lymphocytes 30.6 % (21.0-51.0); %Monocytes 8.8 % (0.0-10.0); %Neutrophils 49.7 % (42.0-75.0); Hemoglobin 7.6 g/dL (14.0-18.0); Mean Corpuscular HGB CONC 32.1 g/dL (32.0-36.0); Mean Corpuscular Hemoglobin 27.8 pg (27.0-31.0); Mean Corpuscular Volume 86.6 fL (78.0-98.0); Mean Platelet Volume 7.7 fL (7.4-10.4); Platelet Count 298 thou/uL (130-400); RBC Distribution Width 13.6 % (11.5-14.5); Red Blood Cell (RBC) Count 2.74 mill/uL (4.70-6.10); White Blood Cell (WBC) Count 5.6 thou/uL (4.8-10.8)
[2021-12-02] MEDS: Polyethylene Glycol 3350 17 GM Packet PO SCH (08:50)
[2021-12-02] MEDS ORDERED: Sodium Bicarbonate Tab 325 MG TAB PO SCH ×2 (10:31→11:30)
[2021-12-02] MEDS: Ferrous Sulfate 325 MG TAB PO SCH (18:16)
[2021-12-02] MEDS: Sodium Bicarbonate Tab 325 MG TAB PO SCH (20:50)
[2021-12-02] MEDS: Nitrofurantoin Monohyd/M-Cryst 100 MG CAP PO SCH (20:50)
[2021-12-02] MEDS ORDERED: Insulin Glargine 30 UNITS/0.3 ML VIAL SC SCH (21:00)
[2021-12-02] MEDS ORDERED: Non-Formulary Item 1 EACH (Insulin Degludec [Tresiba] 100 UNIT/ML Vial) SQ SCH (21:00)
[2021-12-02] MEDS ORDERED: Ezetimibe 10 MG TAB PO SCH (21:00)
[2021-12-02] MEDS ORDERED: Finasteride 5 MG TAB PO SCH (21:00)
[2021-12-03] MEDS ORDERED: Levothyroxine Sodium 100 MCG TAB PO SCH (06:00)
[2021-12-03 07:35] LABS: #Basophils 0.1 thou/uL (0.0-0.2); #Eosinphils 0.5 thou/uL (0.0-0.7); #Lymphocytes 1.7 thou/uL (1.20-3.40); #Monocytes 0.6 thou/uL (0.11-0.59); #Neutrophils 5.7 thou/uL (1.40-6.50); %Basophils 0.7 % (0.0-1.0); %Eosinophils 6.4 % (0.0-10.0); %Lymphocytes 19.6 % (21.0-51.0); %Monocytes 6.6 % (0.0-10.0); %Neutrophils 66.7 % (42.0-75.0); Hemoglobin 7.7 g/dL (14.0-18.0); Mean Corpuscular HGB CONC 32.7 g/dL (32.0-36.0); Mean Corpuscular Hemoglobin 27.8 pg (27.0-31.0); Mean Platelet Volume 7.5 fL (7.4-10.4); Platelet Count 283 thou/uL (130-400); RBC Distribution Width 13.8 % (11.5-14.5); Red Blood Cell (RBC) Count 2.77 mill/uL (4.70-6.10); White Blood Cell (WBC) Count 8.5 thou/uL (4.8-10.8)
[2021-12-03 07:50] LABS: Anion Gap 12 mmol/L (10-20); BUN (Urea Nitrogen) 29 mg/dL (8.4-25.7); Calc. Creatinine Clearance 44 mL/min (70-130); Calcium 8.8 mg/dL (7.8-10.44); Carbon Dioxide 17 mmol/L (23-31); Chloride 109 mmol/L (98-107); Estimated GFR 44; Glucose 130 mg/dL (83-110); Potassium 4.4 mmol/L (3.5-5.1); Sodium 134 mmol/L (136-145)
[2021-12-03] MEDS: Ferrous Sulfate 325 MG TAB PO SCH (08:45)
[2021-12-03] MEDS: Nitrofurantoin Monohyd/M-Cryst 100 MG CAP PO SCH (08:45)
[2021-12-03] MEDS: Sodium Bicarbonate Tab 325 MG TAB PO SCH (08:45)
[2021-12-03] MEDS: Polyethylene Glycol 3350 17 GM Packet PO SCH (08:46)
[2021-12-03] MEDS ORDERED: MEMANTINE HCL 21 MG PO SCH (09:00)
[2021-12-03] MEDS ORDERED: Cholecalciferol 1,000 UNITS (25 MCG) TAB PO SCH (09:00)
[2021-12-03] MEDS ORDERED: CHOLECALCIFEROL 2000 UNIT PO SCH (09:00)
[2021-12-03] MEDS ORDERED: NIFEdipine XL 90 MG TAB PO SCH (09:00)
[2021-12-03] MEDS ORDERED: Levothyroxine Sodium 112 MCG TAB PO SCH (09:00)
[2021-12-03 12:30] VITALS: BP 105/75; TEMP 98.1
== END 2021-12-03 15:55 | disposition home or self-care (01) | DRG 812 ==
LOC: INTOOBSV 22:57 → SURG B 22:57 → OBSVTOIN 12-03 09:00
PROVIDERS: ADMIT Family Medicine; ATTEND Family Medicine
DX: D50.9 Iron deficiency anemia, unspecified (principal); Z20.822 Contact with and (suspected) exposure to COVID-19; J44.9 Chronic obstructive pulmonary disease, unspecified; E03.9 Hypothyroidism, unspecified; I12.9 Hypertensive chronic kidney disease with stage 1 through stage 4 chronic kidney disease, or unspecified chronic kidney disease; D63.1 Anemia in chronic kidney disease; N18.30 Chronic kidney disease, stage 3 unspecified; K21.9 Gastro-esophageal reflux disease without esophagitis; E11.22 Type 2 diabetes mellitus with diabetic chronic kidney disease; E11.42 Type 2 diabetes mellitus with diabetic polyneuropathy; F03.90 Unspecified dementia, unspecified severity, without behavioral disturbance, psychotic disturbance, mood disturbance, and anxiety; Z79.82 Long term (current) use of aspirin; Z79.4 Long term (current) use of insulin; Z79.899 Other long term (current) drug therapy; Z79.890 Hormone replacement therapy; Z98.890 Other specified postprocedural states; Z88.1 Allergy status to other antibiotic agents
CPT/HCPCS: 36415; 36416; 80048; 80053; 82607; 83540; 83550; 84207; 85025; 86850; 86900; 86901; G0378; J1815

== ENCOUNTER 2021-12-04 20:52 | Inpatient (IN) | payer MEDICARE ==
[2021-12-04 21:43] LABS: #Eosinphils 0.1 thou/uL (0.0-0.7); #Lymphocytes 1.5 thou/uL (1.20-3.40); #Monocytes 0.8 thou/uL (0.11-0.59); #Neutrophils 8.9 thou/uL (1.40-6.50); %Basophils 0.3 % (0.0-1.0); %Eosinophils 0.5 % (0.0-10.0); %Monocytes 6.7 % (0.0-10.0); %Neutrophils 79.6 % (42.0-75.0); Hemoglobin 8.9 g/dL (14.0-18.0); Mean Corpuscular HGB CONC 32.8 g/dL (32.0-36.0); Mean Corpuscular Volume 85.6 fL (78.0-98.0); Mean Platelet Volume 8.1 fL (7.4-10.4); Platelet Count 370 thou/uL (130-400); Red Blood Cell (RBC) Count 3.18 mill/uL (4.70-6.10); White Blood Cell (WBC) Count 11.2 thou/uL (4.8-10.8)
[2021-12-04 21:57] LABS: ALT (SGPT) 8 U/L (8-55); AST (SGOT) 12 U/L (5-34); Albumin 3.5 g/dL (3.4-4.8); Alkaline Phosphatase 116 U/L (40-110); Anion Gap 17 mmol/L (10-20); BUN (Urea Nitrogen) 38 mg/dL (8.4-25.7); Bilirubin, Total 0.2 mg/dL (0.2-1.2); Calc. Creatinine Clearance 0 mL/min (70-130); Calcium 8.6 mg/dL (7.8-10.44); Carbon Dioxide 14 mmol/L (23-31); Chloride 107 mmol/L (98-107); Estimated GFR 29; Globulin 4.3 g/dL (2.4-3.5); Glucose 192 mg/dL (83-110); Potassium 4.9 mmol/L (3.5-5.1); Protein, Total 7.8 g/dL (5.8-8.1); Sodium 133 mmol/L (136-145)
[2021-12-04 22:17] LABS: CKMB 4.9 ng/mL (0-6.6)
[2021-12-04] MEDS ORDERED: Azithromycin 500 MG VIAL ONE (22:26)
[2021-12-04] MEDS ORDERED: cefTRIAXone\\ROCEPHIN 2 GM VIAL ONE (22:26)
[2021-12-04 22:38] LABS: Bilirubin Negative (Negative); Blood, Urine Negative (Negative); Clarity Extra Turbid (Clear); Glucose, Urine (Dipstick) 50 mg/dL (Negative); Ketone, Urine Negative (Negative); Leukocyte 500 Leu/uL (Negative); Nitrite Negative (Negative); Protein, Urine (Dipstick) 100 mg/dL (Neg-Trace); RBC/HPF 0-3 HPF (0-3); Specific Gravity, Urine 1.021 (1.002-1.036); Squamous Epithelial 0-3 HPF (0-3); Urobilinogen Normal mg/dL (Less than 2); WBC/HPF Greater than 50 HPF (0-3)
[2021-12-04 22:40] LABS: Bacteria/HPF 1+ HPF (None Seen)
[2021-12-04] MEDS ORDERED: Aspirin Chewable 81 MG TAB ONE (22:46)
[2021-12-04] MEDS ORDERED: Furosemide 40 MG/4 ML VIAL ONE (22:47)
[2021-12-04 22:51] LABS: SARS-CoV-2 NAA Rapid Test Not Detected (NotDetected)
[2021-12-05] MEDS ORDERED: Acetaminophen 650 MG Suppository PR PRN (00:43)
[2021-12-05] MEDS ORDERED: Ondansetron PF 4 MG/2 ML Vial IVP PRN (00:43)
[2021-12-05] MEDS ORDERED: Ondansetron ODT 4 MG TAB PO PRN (00:43)
[2021-12-05] MEDS ORDERED: Acetaminophen 325 MG TAB PO PRN (00:43)
[2021-12-05 03:35] LABS: #Lymphocytes 1.6 thou/uL (1.20-3.40); #Monocytes 0.6 thou/uL (0.11-0.59); #Neutrophils 6.3 thou/uL (1.40-6.50); %Basophils 0.2 % (0.0-1.0); %Eosinophils 0.5 % (0.0-10.0); %Lymphocytes 18.2 % (21.0-51.0); %Neutrophils 74.1 % (42.0-75.0); Hemoglobin 7.8 g/dL (14.0-18.0); Mean Corpuscular HGB CONC 33.8 g/dL (32.0-36.0); Mean Corpuscular Hemoglobin 28.8 pg (27.0-31.0); Mean Corpuscular Volume 85.3 fL (78.0-98.0); Mean Platelet Volume 8.2 fL (7.4-10.4); Platelet Count 311 thou/uL (130-400); RBC Distribution Width 13.8 % (11.5-14.5); Red Blood Cell (RBC) Count 2.69 mill/uL (4.70-6.10); White Blood Cell (WBC) Count 8.5 thou/uL (4.8-10.8)
[2021-12-05 03:51] LABS: Anion Gap 16 mmol/L (10-20); BUN (Urea Nitrogen) 40 mg/dL (8.4-25.7); Calc. Creatinine Clearance 0 mL/min (70-130); Calcium 8.5 mg/dL (7.8-10.44); Carbon Dioxide 14 mmol/L (23-31); Chloride 108 mmol/L (98-107); Estimated GFR 27; Glucose 196 mg/dL (83-110); Potassium 5.3 mmol/L (3.5-5.1); Sodium 133 mmol/L (136-145)
[2021-12-05] MEDS ORDERED: Electrolyte Replacement Protocol 1 EACH FS SCH (04:45)
[2021-12-05] MEDS ORDERED: Dextrose 5% in Water 1,000 ML IV PRN (04:56)
[2021-12-05] MEDS ORDERED: Dextrose 50% Abboject 50 ML SYRINGE SLOW IVP PRN (04:56)
[2021-12-05] MEDS ORDERED: HumaLOG 300 UNITS/3 ML VIAL SC PRN ×2 (04:56)
[2021-12-05 05:27] VITALS: BMI 25.1
[2021-12-05] MEDS ORDERED: methylPREDNISolone Sod Succ 40 MG VIAL IVP SCH (05:30)
[2021-12-05] MEDS ORDERED: Magnesium 2 GM/50 ML(in water) 2 GM in Premix Bag 1 BAG IVPB SCH (08:00)
[2021-12-05] MEDS ORDERED: Cefepime 1 GM in Sodium Chloride 0.9% 100 ML IVPB SCH (08:00)
[2021-12-05] MEDS ORDERED: Enoxaparin Sodium 40 MG/0.4 ML SYRINGE SC SCH (09:00)
[2021-12-05] MEDS ORDERED: Furosemide 40 MG/4 ML VIAL SLOW IVP SCH (09:00)
[2021-12-05] MEDS ORDERED: Fentanyl 100 MCG/2 ML VIAL ONE (12:51)
[2021-12-05] MEDS ORDERED: NOREPINEPHRINE 8 MG/250 ML-D5W 250 ML IVPB SCH (13:00)
[2021-12-05] MEDS ORDERED: Lorazepam (BATCHED) 2 MG/ML SYR SLOW IVP SCH (13:00)
[2021-12-05] MEDS: Phenylephrine 40 MG/NS 250 ML 40 MG in Premix Bag 1 BAG IVPB SCH ×3 (13:11→18:02)
[2021-12-05] MEDS ORDERED: Fentanyl 100 MCG/2 ML VIAL SLOW IVP SCH (13:15)
[2021-12-05] MEDS ORDERED: Fentanyl CADD 100 ML ONE (13:28)
[2021-12-05] MEDS ORDERED: Ventilator Sedation Protocol 1 EACH FS SCH (13:30)
[2021-12-05 13:31] LABS: Actual Bicarbonate (HCO3a) 7.2 mEq/L (22-28); Base Excess (BEa) -22.5 mEq/L (-2.0 to +3.0); CO2 Tension 30.1 mmHg (35.0-45.0); Calcium, Ionized (arterial) 1.18 mmol/L (1.12-1.30); Carboxyhemoglobin (COHb) 0.3 gm% (0.0-3.0); O2 Tension (PaO2), arterial 116.5 mmHg (> 60.0); Potassium - ABG Lab 5.29 mmol/L (3.70-5.30)
[2021-12-05] MEDS ORDERED: Sodium Bicarb 50 MEQ/50 ML VIAL ONE ×4 (13:34→15:44)
[2021-12-05] MEDS ORDERED: Midazolam HCl 2 mg/2 ml Vial SLOW IVP PRN (13:41)
[2021-12-05] MEDS ORDERED: Propofol BOLUS 1,000 MG/100 ML VIAL IV PRN (13:45)
[2021-12-05] MEDS ORDERED: Sodium Bicarbonate 150 MEQ in Dextrose 5% in Water 1,000 ML IV SCH (13:45)
[2021-12-05] MEDS ORDERED: Sodium Bicarb 50 MEQ/50 ML VIAL IVP SCH ×2 (13:45→16:00)
[2021-12-05] MEDS ORDERED: Morphine 4 MG/ML VIAL SLOW IVP PRN (13:45)
[2021-12-05] MEDS ORDERED: Propofol 1,000 MG/100 ML VIAL IV PRN (13:45)
[2021-12-05] MEDS ORDERED: Fentanyl BOLUS 250 ML IVPB PRN (13:45)
[2021-12-05] MEDS ORDERED: Fentanyl CADD 100 ML IV SCH (13:45)
[2021-12-05] MEDS ORDERED: DISCONTINUE PREVIOUS NARCOTIC PAIN MEDICATIONS AND BENZODIAZEPINES FS SCH (13:45)
[2021-12-05 14:27] VITALS: BP 97/70
[2021-12-05 14:28] LABS: ALV-art Gradient 558.875 mmHg (0-20); Puncture Site LBA
[2021-12-05] MEDS ORDERED: Propofol 1,000 MG/100 ML VIAL IV SCH (14:45)
[2021-12-05 15:47] LABS: Actual Bicarbonate (HCO3a) 6.5 mEq/L (22-28); Base Excess (BEa) -24.3 mEq/L (-2.0 to +3.0); CO2 Tension 31.5 mmHg (35.0-45.0); Calcium, Ionized (arterial) 1.13 mmol/L (1.12-1.30); Carboxyhemoglobin (COHb) 0.3 gm% (0.0-3.0); Hemoglobin (Hb) 8.5 g/dL (14.0-18.0); O2 Tension (PaO2), arterial 94.8 mmHg (> 60.0); Potassium - ABG Lab 6.75 mmol/L (3.70-5.30); Puncture Site LBA; pH, Arterial 6.93 (7.35-7.45)
[2021-12-05 15:48] LABS: ALV-art Gradient 293.625 mmHg (0-20)
[2021-12-05] MEDS ORDERED: Calcium Gluc 4.6 MEQ/10 ML (100 MG/ML) SLOW IVP SCH (16:00)
[2021-12-05] MEDS ORDERED: Calcium Chloride 1 GM/10 ML Abboject SYRINGE ONE (16:04)
[2021-12-05] MEDS ORDERED: Calcium Chloride 1 GM/10 ML Abboject SYRINGE IVP SCH (16:15)
[2021-12-05 20:19] VITALS: TEMP 97.1
[2021-12-05] MEDS ORDERED: Azithromycin 500 MG in Sodium Chloride 0.9% 250 ML 250 ML IVPB SCH (21:00)
[2021-12-05] MEDS ORDERED: VANCOMYCIN 1.75 GM/500 ML BAG 1.75 GM in Premix Bag 1 BAG IVPB SCH (22:00)
[2021-12-06] MEDS ORDERED: methylPREDNISolone Sod Succ 40 MG VIAL IVP SCH (09:00)
[2021-12-06] MEDS ORDERED: Pantoprazole 40 MG VIAL IVP SCH (09:00)
[2021-12-06] MEDS ORDERED: Vancomycin HCl 750 MG in Sodium Chloride 0.9% 250 ML 250 ML IVPB SCH (22:00)
== END 2021-12-05 20:34 | disposition expired | DRG 871 ==
LOC: ERS 20:52 → IMCU/EMU 12-05 → CCU 12-05 12:42
PROVIDERS: ADMIT Internal Medicine; ATTEND Internal Medicine
PROC: 5A09357 Assistance with Respiratory Ventilation, Less than 24 Consecutive Hours, Continuous Positive Airway Pressure (ICD-10-PCS; principal; 2021-12-05)
PROC: 3E03329 Introduction of Other Anti-infective into Peripheral Vein, Percutaneous Approach (ICD-10-PCS; 2021-12-05)
PROC: 02HV33Z Insertion of Infusion Device into Superior Vena Cava, Percutaneous Approach (ICD-10-PCS; 2021-12-05)
PROC: 3E043XZ Introduction of Vasopressor into Central Vein, Percutaneous Approach (ICD-10-PCS; 2021-12-05)
PROC: 0BH17EZ Insertion of Endotracheal Airway into Trachea, Via Natural or Artificial Opening (ICD-10-PCS; 2021-12-05)
PROC: 5A1935Z Respiratory Ventilation, Less than 24 Consecutive Hours (ICD-10-PCS; 2021-12-05)
PROC: 0D9670Z Drainage of Stomach with Drainage Device, Via Natural or Artificial Opening (ICD-10-PCS; 2021-12-05)
DX: A41.9 Sepsis, unspecified organism (principal); J96.01 Acute respiratory failure with hypoxia; J18.9 Pneumonia, unspecified organism; I50.33 Acute on chronic diastolic (congestive) heart failure; J44.0 Chronic obstructive pulmonary disease with (acute) lower respiratory infection; E87.2 Acidosis; N39.0 Urinary tract infection, site not specified; N17.9 Acute kidney failure, unspecified; I42.8 Other cardiomyopathies; G72.81 Critical illness myopathy; R57.9 Shock, unspecified; I13.0 Hypertensive heart and chronic kidney disease with heart failure and stage 1 through stage 4 chronic kidney disease, or unspecified chronic kidney disease; F05 Delirium due to known physiological condition; Z20.822 Contact with and (suspected) exposure to COVID-19; Z66 Do not resuscitate; D63.1 Anemia in chronic kidney disease; E66.9 Obesity, unspecified; G47.33 Obstructive sleep apnea (adult) (pediatric); I25.10 Atherosclerotic heart disease of native coronary artery without angina pectoris; E87.5 Hyperkalemia; G30.9 Alzheimer's disease, unspecified; F02.80 Dementia in other diseases classified elsewhere, unspecified severity, without behavioral disturbance, psychotic disturbance, mood disturbance, and anxiety; G62.9 Polyneuropathy, unspecified; K20.90 Esophagitis, unspecified without bleeding; E03.9 Hypothyroidism, unspecified; K21.9 Gastro-esophageal reflux disease without esophagitis; J84.10 Pulmonary fibrosis, unspecified; Z51.5 Encounter for palliative care; N40.0 Benign prostatic hyperplasia without lower urinary tract symptoms; Z85.51 Personal history of malignant neoplasm of bladder; E11.22 Type 2 diabetes mellitus with diabetic chronic kidney disease; Z88.1 Allergy status to other antibiotic agents; Z91.041 Radiographic dye allergy status; N18.30 Chronic kidney disease, stage 3 unspecified; Z79.899 Other long term (current) drug therapy; Z79.82 Long term (current) use of aspirin; Z79.4 Long term (current) use of insulin; Z87.891 Personal history of nicotine dependence; Z98.42 Cataract extraction status, left eye; Z98.41 Cataract extraction status, right eye; Z98.890 Other specified postprocedural states; Z90.49 Acquired absence of other specified parts of digestive tract; Z79.890 Hormone replacement therapy; Z95.5 Presence of coronary angioplasty implant and graft; Z78.1 Physical restraint status; Z68.24 Body mass index [BMI] 24.0-24.9, adult; E86.0 Dehydration
CPT/HCPCS: 36415; 36416; 36600; 51701; 71045; 80048; 80053; 81003; 81015; 82553; 82805; 83605; 83735; 83880; 84484; 85025; 87040; 87077; 87086; 87149; 87186; 93005; 93306; 94002; 94640; 94660; 96365; 96375; J0456; J0692; J0696; J1650; J1815; J1940; J2704; J2920; J3010; J3475; J3490; J7070; J7620